=== PATIENT | female | born 1950 | race Caucasian/White ===

== ENCOUNTER 2016-11-11 11:00 | Outpatient (CLI) | payer MEDICARE | END 2016-11-11 11:01 | disposition home or self-care (01) | DX: E78.5 Hyperlipidemia, unspecified (principal); E03.9 Hypothyroidism, unspecified ==

== ENCOUNTER 2017-03-31 11:04 | Day surgery (SDC) | payer MEDICARE ==
[2017-03-31] MEDS ORDERED: LACTATED RINGERS 1,000 ML IV ONE (11:17)
[2017-03-31] MEDS ORDERED: fentaNYL 100 MCG/2 ML VIAL IVP ONE (11:57)
[2017-03-31] MEDS ORDERED: MIDAZOLAM 2 MG/2 ML VIAL IVP ONE (11:57)
[2017-03-31 13:08] VITALS: BP 100/56
== END 2017-03-31 11:05 | disposition home or self-care (01) ==
LOC: SDS 11:04
PROVIDERS: ATTEND Internal Medicine
PROC: 0DB68ZX Excision of Stomach, Via Natural or Artificial Opening Endoscopic, Diagnostic (ICD-10-PCS; 2017-03-31)
PROC: 0DB58ZX Excision of Esophagus, Via Natural or Artificial Opening Endoscopic, Diagnostic (ICD-10-PCS; principal; 2017-03-31 12:00)
DX: K31.89 Other diseases of stomach and duodenum (principal); K29.50 Unspecified chronic gastritis without bleeding; K31.7 Polyp of stomach and duodenum
CPT/HCPCS: 43239; J7120; 88305

== ENCOUNTER 2017-07-05 14:07 | Outpatient (CLI) | payer MEDICARE ==
[2017-07-05 18:56] LABS: BASOPHILS % (AUTO) 0.4 %; EOSINOPHILS # (AUTO) 0.1 10^3/uL (0.0-0.7); EOSINOPHILS % (AUTO) 0.7 %; HCT - HEMATOCRIT 44.1 % (37.0-47.0); HGB - HEMOGLOBIN 14.9 g/dL (12.0-16.0); LYMPHOCYTES # (AUTO) 1.9 10^3/uL (1.5-3.5); LYMPHOCYTES % (AUTO) 22.1 %; MEAN CORPUSCULAR HEMOGLOBIN 29.9 pg (27.0-31.0); MEAN CORPUSCULAR HGB CONC 33.7 g/dL (32.0-36.0); MEAN CORPUSCULAR VOLUME 88.8 fL (81.0-99.0); MEAN PLATELET VOLUME 8.4 fL (7.9-10.8); MONOCYTES # (AUTO) 0.7 10^3/uL (0.0-1.0); MONOCYTES % (AUTO) 7.7 %; NEUTROPHILS % (AUTO) 69.1 %; RED BLOOD COUNT 4.97 10^6/uL (4.20-5.40); RED CELL DISTRIBUTION WIDTH 13.1 % (12.0-15.0); UNCORRECTED WHITE BLOOD COUNT 8.6 x10^3/uL; WHITE BLOOD COUNT 8.6 x10^3/uL (4.8-10.8)
[2017-07-05 19:17] LABS: ALBUMIN/GLOBULIN RATIO 1.3 (1.0-2.2); BILIRUBIN,TOTAL 1.8 mg/dL (0.2-1.0); BUN - BLOOD UREA NITROGEN 16 mg/dL (6-20); CALCIUM 9.7 mg/dL (8.5-10.3); CARBON DIOXIDE - CO2 26 mmol/L (21-32); CHLORIDE 101 mmol/L (101-111); CHOL/HDL RATIO 4.4 (<4.4); CHOLESTEROL 256 mg/dL; CREATININE 0.9 mg/dL (0.4-1.0); GFR - MDRD 63 (>89); GLUCOSE 89 mg/dL (70-100); HDL CHOLESTEROL 58 mg/dL; IRON 102 ug/dL (28-170); SODIUM 136 mmol/L (135-145); TOTAL IRON BINDING CAPACITY 368 ug/dL (250-450); TOTAL PROTEIN 8.3 g/dL (6.7-8.2); TRANSFERRIN 263 mg/dL (192-382); TRIGLYCERIDES 113 mg/dL; VLDL CHOLESTEROL 23 mg/dL
[2017-07-05 19:22] LABS: THYROID STIMULATING HORMONE 3.68 uIU/mL (0.34-5.60)
[2017-07-05 19:26] LABS: FERRITIN 176.9 ng/mL (11.0-306.8)
== END 2017-07-05 14:08 | disposition home or self-care (01) ==
LOC: LAB.WCP 14:07
PROVIDERS: ATTEND Family Medicine
DX: R53.83 Other fatigue (principal); E03.9 Hypothyroidism, unspecified; E78.5 Hyperlipidemia, unspecified
CPT/HCPCS: 36415; 80053; 80061; 82728; 83540; 84443; 84466; 85025

== ENCOUNTER 2017-08-22 11:21 | Emergency (ER) | payer MEDICARE ==
[2017-08-22 12:17] LABS: BASOPHILS % (AUTO) 0.3 %; EOSINOPHILS % (AUTO) 0.1 %; HCT - HEMATOCRIT 40.3 % (37.0-47.0); HGB - HEMOGLOBIN 13.7 g/dL (12.0-16.0); LYMPHOCYTES # (AUTO) 1.1 10^3/uL (1.5-3.5); LYMPHOCYTES % (AUTO) 9.2 %; MEAN CORPUSCULAR HEMOGLOBIN 29.5 pg (27.0-31.0); MEAN CORPUSCULAR HGB CONC 33.9 g/dL (32.0-36.0); MEAN CORPUSCULAR VOLUME 87.1 fL (81.0-99.0); MEAN PLATELET VOLUME 7.6 fL (7.9-10.8); MONOCYTES # (AUTO) 0.6 10^3/uL (0.0-1.0); NEUTROPHILS % (AUTO) 85.4 %; RED BLOOD COUNT 4.62 10^6/uL (4.20-5.40); RED CELL DISTRIBUTION WIDTH 12.9 % (12.0-15.0); UNCORRECTED WHITE BLOOD COUNT 11.8 x10^3/uL; WHITE BLOOD COUNT 11.8 x10^3/uL (4.8-10.8)
[2017-08-22] MEDS ORDERED: SODIUM CHLORIDE 0.9% 1,000 ML IV ONE (12:24)
[2017-08-22 12:32] LABS: ALBUMIN/GLOBULIN RATIO 1.2 (1.0-2.2); BILIRUBIN,TOTAL 1.3 mg/dL (0.2-1.0); CALCIUM 9.3 mg/dL (8.5-10.3); CREATININE 0.8 mg/dL (0.4-1.0); TOTAL PROTEIN 7.9 g/dL (6.7-8.2)
[2017-08-22 13:01] LABS: BILIRUBIN,URINE NEGATIVE (NEGATIVE)
[2017-08-22 13:04] LABS: UA w/ MICROSCOPIC CHARGE YES
[2017-08-22 13:13] LABS: UR CULTURE IF IND INDICATED
[2017-08-22] MEDS ORDERED: IOPAMIDOL-300 100 ML VIAL ONE (13:58)
[2017-08-22] MEDS ORDERED: MORPHINE 10 MG/ML VIAL IVP STA (13:59)
[2017-08-22] MEDS ORDERED: ONDANSETRON 4 MG/2 ML VIAL IVP STA (14:00)
[2017-08-22] MEDS ORDERED: ONDANSETRON 4 MG/2 ML VIAL ONE (14:16)
[2017-08-22] MEDS ORDERED: MORPHINE 2 MG/ML SYRINGE ONE (14:16)
[2017-08-22] MEDS ORDERED: IOPAMIDOL-300 100 ML VIAL IVP ONE (14:54)
--- NOTE | 2017-08-22 15:27 | CT Preliminary Report ---
Exam: CT ABDOMEN/PELVIS W/ IMPRESSION: 1. Probable diffuse wall thickening of the colon, extending from the sigmoid to the rectum. This may reflect an inflammatory or infectious colitis. 2. Although lack of distention and oral contrast limits its evaluation, there is suggestion of focal thickening of the wall of the gastric antrum. 3. Cholelithiasis. [facility] SITE ID: [id number]
--- NOTE | 2017-08-22 15:30 | CT Report ---
EXAM: CT ABDOMEN AND PELVIS EXAM DATE: 08/22/2017 02:55 PM. CLINICAL HISTORY: ABD pain and rectal bleeding. COMPARISONS: None. TECHNIQUE: Routine helical CT imaging was performed through the abdomen and pelvis. IV contrast: 100M L OF ISOVUE 300. Enteric contrast: No. Reconstructions: Coronal and sagittal. In accordance with CT protocol optimization, one or more of the following dose reduction techniques w ere utilized for this exam: automated exposure control, adjustment of mA and/or KV based on patient s ize, or use of iterative reconstructive technique. FINDINGS: Lung Bases: Unremarkable. Liver: Normal. No masses. Gallbladder/Bile Ducts: Cholelithiasis Spleen: Normal. Pancreas: Normal. Adrenal Glands: Normal. Kidneys: Normal. No masses or hydronephrosis. Peritoneal Cavity/Bowel: Although lack of distention and oral contrast limits its evaluation, there i s suggestion of thickening of the wall of the gastric antrum (series 4, images 36-39). This is nonspe cific in appearance. The colon is collapsed from the splenic flexure to the rectum. While lack of dis tention and oral contrast limits its evaluation, there is suggestion of diffuse wall thickening exten ding from the sigmoid colon to the rectum (series 6, image 35). This may reflect an inflammatory or i nfectious colitis. No free fluid, free air or adenopathy. The appendix is well visualized and normal. Pelvic Organs: The urinary bladder is unremarkable. Postsurgical changes from hysterectomy. Vasculature: No aneurysms or other significant abnormality. Bones: Mild degenerative changes in the spine. Other: None. IMPRESSION: 1. Probable diffuse wall thickening of the colon, extending from the sigmoid to the rectum. This may reflect an inflammatory or infectious colitis. 2. Although lack of distention and oral contrast limits its evaluation, there is suggestion of focal thickening of the wall of the gastric antrum. 3. Cholelithiasis. [facility] Referring Provider Line: [phone] SITE ID: [id number]
--- NOTE | 2017-08-22 16:03 | ED Physician Documentation ---
History of Present Illness - Stated complaint Stated Complaint: DIARRHEA/CRAMPS - Chief complaint Chief Complaint: Abd Pain - History obtained from History obtained from: Patient (pt is here for evaluation of abdominal pain, nausea, and bloody stool. Pt states no fevers, no travel, no sick contcts, no camping, no urinary sx, no pain with BM's,) Review of Systems Constitutional: denies: Fever, Chills Throat: denies: Sore throat Cardiac: denies: Chest pain / pressure, Palpitations, Pedal edema, Calf pain Respiratory: denies: Dyspnea, Cough GI: reports: Abdominal Pain, Nausea, Diarrhea, Bloody / black stool. denies: Abdominal Swelling, Vomiting, Constipation : reports: Hematuria. denies: Dysuria, Frequency, Vaginal bleeding Skin: denies: Rash, Lesions Musculoskeletal: denies: Extremity pain Neurologic: reports: Generalized weakness. 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 : None HEENT: Glaucoma Psych: Depression Musculoskeletal: Osteoarthritis Derm: None - Past Surgical History Past Surgical History: Yes General: Colonoscopy, EGD Ortho: Other /DUPLIGRAPH OPERATOR: section, 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 - Present Medications Home Medications: Ambulatory Orders Medication Instructions Recorded Confirmed Citalopram [CeleXA] 40 mg PO DAILY 03/19/13 08/22/17 LORazepam [Ativan] 1 mg PO DAILY 03/19/13 08/22/17 Levothyroxine Sodium [Levothroid] 25 mcg PO DAILY 03/19/13 08/22/17 Omeprazole 20 mg PO DAILY 03/19/13 08/22/17 Zolpidem [Ambien] 5 mg PO HS 03/29/17 08/22/17 Cholecalciferol (Vitamin D3) 2,000 unit PO DAILY 03/31/17 08/22/17 [Vitamin D] Ciprofloxacin HCl [Cipro] 500 mg PO BID #14 tablet 08/22/17 HYDROcod/ACETAM 5/325 [[place] 5/325] 1 each PO Q6H #7 tablet 08/22/17 Metronidazole [Flagyl] 500 mg PO TID #21 tablet 08/22/17 Ondansetron Odt [Zofran] 4 mg TL Q6H PRN #10 tablet 08/22/17 - Allergies Allergies/Adverse Reactions: Allergies Allergy/AdvReac Type Severity Reaction Status Date / Time Sulfa (Sulfonamide Allergy Severe Respiratory Verified 08/22/17 11:45 Antibiotics) amoxicillin AdvReac Unknown Verified 08/22/17 11:45 - Social History Does the pt smoke?: No Smoking Status: Never smoker Does the pt drink ETOH?: No Does the pt have substance abuse?: No - Immunizations Immunizations are current?: Yes - POLST Patient has POLST: Yes POLST Status: Full Code PD ED PE NORMAL - Vitals Vital signs reviewed: Yes - General General: Alert and oriented X 3, No acute distress, Well developed/nourished - HEENT HEENT: Atraumatic, Moist mucous membranes - Cardiac Cardiac: RRR (bradycardic but regular), No murmur - Respiratory Respiratory: No respiratory distress, Clear bilaterally - Abdomen Abdomen: Normal bowel sounds - Rectal Rectal: Other (gross blood ) - Derm Derm: Normal color, No rash - Extremities Extremities: No edema - Neuro Neuro: Alert and oriented X 3 Eye Opening: Spontaneous Motor: Obeys Commands Verbal: Oriented GCS Score: 15 - Psych Psych: Normal mood, Normal affect Results - Vitals Vitals: Vital Signs - 24 hr 08/22/17 08/22/17 08/22/17 11:38 12:14 14:24 Temperature 35.9 C L 37.1 C Heart Rate 57 L 102 H 53 L Respiratory 16 18 14 Rate Blood Pressure 119/75 130/46 L 125/67 O2 Saturation 96 98 98 Oxygen O2 Source Room air - Labs Labs: Laboratory Tests 08/22/17 08/22/17 08/22/17 12:09 12:09 12:55 WBC 11.8 H RBC 4.62 Hgb 13.7 Hct 40.3 MCV 87.1 MCH 29.5 MCHC 33.9 RDW 12.9 Plt Count 295 MPV 7.6 L Neut # 10.0 H Lymph # 1.1 L [place] # 0.6 Eos # 0.0 Baso # 0.0 Absolute Nucleated RBC 0.00 Nucleated RBC % 0.0 Sodium 137 Potassium 4.0 Chloride 104 Carbon Dioxide 22 Anion Gap 11.0 BUN 17 Creatinine 0.8 Estimated GFR (MDRD) 72 L Glucose 137 H Calcium 9.3 Total Bilirubin 1.3 H AST 24 ALT 14 Alkaline Phosphatase 67 Total Protein 7.9 Albumin 4.3 Globulin 3.6 Albumin/Globulin Ratio 1.2 Lipase 25 Urine Color YELLOW Urine Clarity BLOODY Urine pH 8.0 H Ur Specific [place] 1.020 Urine Protein 100 H Urine Glucose (UA) NEGATIVE Urine Ketones NEGATIVE Urine Occult Blood LARGE H Urine Nitrite NEGATIVE Urine Bilirubin NEGATIVE Urine Urobilinogen 0.2 (NORMAL) Ur Leukocyte Esterase MODERATE H Urine RBC TNTC H Urine WBC 11-25 H Ur Squamous Epith Cells FEW Squamous Urine Bacteria None Seen Ur Microscopic Review INDICATED Urine Culture Comments INDICATED - Rads (name of study) CT abd/pelvis Radiology: Final report received PD MEDICAL DECISION MAKING - ED course Complexity details: d/w patient ED course: pt with a benign ABD exam in the ER however does have gross blood from the rectum and elevated WBC count. CT concerning for colitis. Pt tolerating PO intake. Will start ABX and nausea meds and pain medications. Pt given return precautions. She and her expressed understanding. Departure - Departure Disposition: 01 Home, Self Care Clinical Impression: Colitis, Cholelithiasis Condition: Good Instructions: ED Gastroenteritis Bacterial Follow-Up: Leanne Flores DO [Primary Care Provider] - Prescriptions: Ciprofloxacin HCl [Cipro] 500 mg PO BID #14 tablet HYDROcod/ACETAM 5/325 [[place] 5/325] 1 each PO Q6H #7 tablet Metronidazole [Flagyl] 500 mg PO TID #21 tablet Ondansetron Odt [Zofran] 4 mg TL Q6H PRN #10 tablet PRN Reason: Nausea / Vomiting Comments: Take all of your medications as instructed. Return to the ER for any new symptoms, fevers, worsening pain, or any other new or worsening symptoms. Call your GI provider for a follow up.
[2017-08-22 16:19] VITALS: BP 105/62
== END 2017-08-22 16:33 | disposition home or self-care (01) ==
LOC: ED 11:21
DX: K52.9 Noninfective gastroenteritis and colitis, unspecified (principal); K80.20 Calculus of gallbladder without cholecystitis without obstruction; K62.5 Hemorrhage of anus and rectum; E03.9 Hypothyroidism, unspecified
CPT/HCPCS: 36415; 74177; 80053; 81001; 83690; 85025; 87086; 96361; 96374; 96375; 99284; J2270; Q9967; 81003

== ENCOUNTER 2017-08-30 08:00 | Outpatient (CLI) | payer MEDICARE | END 2017-08-30 23:59 | disposition home or self-care (01) | LOC: LAB.R 08:00 | PROVIDERS: ATTEND Family Medicine | DX: K52.9 Noninfective gastroenteritis and colitis, unspecified (principal) | CPT/HCPCS: 81599; 83630; 87045; 87046; 87177; 87209; 87329; 87493 ==

== ENCOUNTER 2018-02-05 06:04 | Inpatient (IN) | payer MEDICARE ==
[2018-02-05] MEDS ORDERED: SODIUM CHLORIDE 0.9% 1,000 ML IV ONE (06:19)
[2018-02-05] MEDS ORDERED: MORPHINE 10 MG/ML VIAL IVP STA (06:19)
[2018-02-05] MEDS ORDERED: ONDANSETRON 4 MG/2 ML VIAL IVP STA (06:19)
[2018-02-05 06:50] LABS: BASOPHILS % (AUTO) 0.1 %; EOSINOPHILS % (AUTO) 0.1 %; LYMPHOCYTES # (AUTO) 1.1 10^3/uL (1.5-3.5); LYMPHOCYTES % (AUTO) 6.2 %; MEAN CORPUSCULAR HGB CONC 32.8 g/dL (32.0-36.0); MEAN CORPUSCULAR VOLUME 88.4 fL (81.0-99.0); MEAN PLATELET VOLUME 7.7 fL (7.9-10.8); MONOCYTES # (AUTO) 0.9 10^3/uL (0.0-1.0); MONOCYTES % (AUTO) 5.1 %; NEUTROPHILS % (AUTO) 88.5 %; PLT - PLATELET COUNT 317 10^3/uL (130-450); RED BLOOD COUNT 4.84 10^6/uL (4.20-5.40); WHITE BLOOD COUNT 16.9 x10^3/uL (4.8-10.8)
[2018-02-05 06:59] LABS: PT - PROTHROMBIN TIME 11.4 secs (9.9-12.6)
[2018-02-05 07:02] LABS: ALBUMIN 4.4 g/dL (3.2-5.5); ALBUMIN/GLOBULIN RATIO 1.3 (1.0-2.2); BILIRUBIN,TOTAL 1.6 mg/dL (0.2-1.0); CALCIUM 9.4 mg/dL (8.5-10.3); TOTAL PROTEIN 7.8 g/dL (6.7-8.2)
[2018-02-05 07:10] LABS: KETONES,URINE (UA) NEGATIVE (NEGATIVE); LEUKOCYTE ESTERASE, URINE NEGATIVE (NEGATIVE); NITRITE,URINE NEGATIVE (NEGATIVE); OCCULT BLOOD,URINE MODERATE (NEGATIVE); PH,URINE 5.5 PH (5.0-7.5); PROTEIN,URINE NEGATIVE (NEGATIVE); UROBILINOGEN,URINE 0.2 (NORMAL) E.U./dL (NORMAL)
[2018-02-05 07:11] LABS: GLUCOSE, URINE (UA) NEGATIVE (NEGATIVE)
[2018-02-05 07:12] LABS: CLARITY,URINE CLEAR (CLEAR)
[2018-02-05 07:15] LABS: BILIRUBIN,URINE NEGATIVE (NEGATIVE); ICTOTEST,URINE NEGATIVE
[2018-02-05 07:32] LABS: BACTERIA,URINE Few /HPF (None Seen); MUCUS,URINE Few Strands; SQUAMOUS EPITHELIAL CELL,UR MOD Squamous (<= Few)
[2018-02-05 07:33] LABS: CASTS, URINE 3-5 Hyaline Casts /LPF
--- NOTE | 2018-02-05 07:37 | ED Physician Documentation ---
PD HPI NVD - Stated complaint Stated Complaint: RECTAL BLEED - Chief complaint Chief Complaint: Abd Pain - History obtained from History obtained from: Patient, Family - History of Present Illness Timing - onset: Enter time (0200), Today Timing - duration: Hours Timing - details: Abrupt onset, Still present Associated symptoms: Abdominal pain, Loss of appetite, Other (chills and diarrhea with vomiting) Improved by: Laying still Worsened by: Moving, Position, Palpation Similar symptoms before: Diagnosis (colitis) Recently seen: Not recently seen - Additonal information Additional information: 67-year-old female with a recent history of colitis has developed acute abdominal pain diarrhea and vomiting at about 2:00 in the morning. She had pain bad enough to double her over at the side of the bed. She is come to the emergency department this morning for evaluation and treatment. She has had a similar episode of this back in July of last year at which time she was treated with Cipro and Flagyl after CT scanning show what appeared to be colitis in the left colon. She states that she improved with a 10 day course of antibiotic. She did not have follow-up endoscopy. Review of Systems Constitutional: reports: Chills, Fatigue, Sweats. denies: Fever Eyes: denies: Decreased vision Ears: reports: Loss of hearing. 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 : None HEENT: Glaucoma Psych: Depression Musculoskeletal: Osteoarthritis Derm: None - Past Surgical History Past Surgical History: Yes General: Colonoscopy, EGD Ortho: Other /COAT AGENT: section, 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 - Present Medications Home Medications: Ambulatory Orders Medication Instructions Recorded Confirmed Citalopram [CeleXA] 40 mg PO DAILY 03/19/13 08/22/17 LORazepam [Ativan] 1 mg PO DAILY 03/19/13 08/22/17 Levothyroxine Sodium [Levothroid] 25 mcg PO DAILY 03/19/13 08/22/17 Omeprazole 20 mg PO DAILY 03/19/13 08/22/17 Zolpidem [Ambien] 5 mg PO HS 03/29/17 08/22/17 Cholecalciferol (Vitamin D3) 2,000 unit PO DAILY 03/31/17 08/22/17 [Vitamin D] Ciprofloxacin HCl [Cipro] 500 mg PO BID #14 tablet 08/22/17 HYDROcod/ACETAM 5/325 [[place] 5/325] 1 each PO Q6H #7 tablet 08/22/17 Metronidazole [Flagyl] 500 mg PO TID #21 tablet 08/22/17 Ondansetron Odt [Zofran] 4 mg TL Q6H PRN #10 tablet 08/22/17 - Allergies Allergies/Adverse Reactions: Allergies Allergy/AdvReac Type Severity Reaction Status Date / Time Sulfa (Sulfonamide Allergy Severe Respiratory Verified 02/05/18 06:15 Antibiotics) amoxicillin AdvReac Unknown Verified 02/05/18 06:15 - Social History Does the pt smoke?: No Smoking Status: Never smoker Does the pt drink ETOH?: No Does the pt have substance abuse?: No - Immunizations Immunizations are current?: Yes - POLST Patient has POLST: Yes POLST Status: Full Code PD ED PE NORMAL - Vitals Vital signs reviewed: Yes (bradycardia) - General General: Alert and oriented X 3, Well developed/nourished, Other (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 No guarding ) - Back Back: No CVA TTP, No spinal TTP - Derm Derm: Normal color, Warm and dry, No rash - Extremities Extremities: No deformity, No edema - Neuro Neuro: No motor deficit, No sensory deficit Eye Opening: Spontaneous Motor: Obeys Commands Verbal: Oriented GCS Score: 15 - Psych Psych: Normal mood, Normal affect Results - Vitals Vitals: Vital Signs - 24 hr 02/05/18 02/05/1818 06:12 06:50 07:30 Temperature 36.5 C Heart Rate 47 L 42 L 44 L Respiratory 17 12 16 Rate Blood Pressure 122/74 113/61 96/58 L O2 Saturation 97 97 02/05/18 02/05/18 02/05/18 08:00 09:04 09:15 Temperature Heart Rate 39 L 51 L 51 L Respiratory 16 16 16 Rate Blood Pressure 93/52 L 104/62 102/67 O2 Saturation 97 95 95 02/05/18 02/05/18 09:30 09:45 Temperature Heart Rate 52 L 50 L Respiratory 16 16 Rate Blood Pressure 101/62 99/62 O2 Saturation 95 96 Oxygen O2 Source Room air - Labs Labs: Laboratory Tests 02/05/18 02/05/18 02/05/18 06:28 06:28 06:28 WBC 16.9 H RBC 4.84 Hgb 14.0 Hct 42.8 MCV 88.4 MCH 29.0 MCHC 32.8 RDW 13.0 Plt Count 317 MPV 7.7 L Neut # 15.0 H Lymph # 1.1 L [place] # 0.9 Eos # 0.0 Baso # 0.0 Absolute Nucleated RBC 0.01 Nucleated RBC % 0.0 PT 11.4 INR 1.0 APTT 26.8 Sodium 136 Potassium 4.2 Chloride 103 Carbon Dioxide 23 Anion Gap 10.0 BUN 19 Creatinine 1.0 Estimated GFR (MDRD) 55 L Glucose 187 H Lactic Acid Calcium 9.4 Total Bilirubin 1.6 H AST 24 ALT 13 Alkaline Phosphatase 75 Total Protein 7.8 Albumin 4.4 Globulin 3.4 Albumin/Globulin Ratio 1.3 Lipase 33 Urine Color Urine Clarity Urine pH Ur Specific [place] Urine Protein Urine Glucose (UA) Urine Ketones Urine Occult Blood Urine Nitrite Urine Bilirubin Urine Urobilinogen Ur Leukocyte Esterase Urine RBC Urine WBC Ur Squamous Epith Cells Urine Bacteria Urine Casts Urine Mucus Ur Microscopic Review Urine Culture Comments 02/05/18 02/05/18 06:51 06:51 WBC RBC Hgb Hct MCV MCH MCHC RDW Plt Count MPV Neut # Lymph # [place] # Eos # Baso # Absolute Nucleated RBC Nucleated RBC % PT INR APTT Sodium Potassium Chloride Carbon Dioxide Anion Gap BUN Creatinine Estimated GFR (MDRD) Glucose Lactic Acid 1.6 Calcium Total Bilirubin AST ALT Alkaline Phosphatase Total Protein Albumin Globulin Albumin/Globulin Ratio Lipase Urine Color YELLOW Urine Clarity CLEAR Urine pH 5.5 Ur Specific [place] >=1.030 H Urine Protein NEGATIVE Urine Glucose (UA) NEGATIVE Urine Ketones NEGATIVE Urine Occult Blood MODERATE H Urine Nitrite NEGATIVE Urine Bilirubin NEGATIVE Urine Urobilinogen 0.2 (NORMAL) Ur Leukocyte Esterase NEGATIVE Urine RBC 6-10 H Urine WBC 4-5 Ur Squamous Epith Cells MOD Squamous H Urine Bacteria Few Urine Casts 3-5 Hyaline Casts Urine Mucus Few Strands Ur Microscopic Review INDICATED Urine Culture Comments NOT INDICATED - Rads (name of study) CT abdomen and pelvis with Radiology: Prelim report reviewed (Impression: Apparent circumferential bowel wall thickening in the descending colon may be due to under distention. However , infectious or inflammatory colitis such as ulcerative colitis can have this appearance. This is new since the prior examination. Correlate clinically.), EMP read indepedently, See rad report Procedures - IVC sono (time) 2207 Bedside IVC sono: IVC measures (cm) (1.42), Dehydration (minimal) PD MEDICAL DECISION MAKING - ED course Complexity details: reviewed old records, reviewed results, re-evaluated patient , considered differential, d/w patient, d/w family ED course: 67 y/o female with acute diarrheal illness with pain and vomiting is not significantly dehydrated on interrogation of the IVC after one liter fluid given. She is hypotensive after one liter saline in. Initially I considered treating the patient empirically as prior but with the hypotension, elevated WBC and pain worse than prior episode I elected to scan again. This demonstrated a general swelling of the colon on the left and is consistent with ulcerative colitis. She is hypotensive and bradycardic and hospitalization is indicated. Departure - Departure Disposition: ED Place in Observation Clinical Impression: Colitis
[2018-02-05] MEDS ORDERED: MORPHINE 2 MG/ML SYRINGE IVP STA (07:42)
[2018-02-05] MEDS ORDERED: metroNIDAZOLE 500 MG/100 ML 500 MG/100 ML BAG IV ONE (07:42)
[2018-02-05] MEDS ORDERED: IOPAMIDOL-300 100 ML VIAL ONE (08:35)
[2018-02-05] MEDS ORDERED: IOPAMIDOL-300 100 ML VIAL IVP ONE (09:03)
--- NOTE | 2018-02-05 09:23 | CT Preliminary Report ---
Exam: CT ABDOMEN/PELVIS W/ IMPRESSION: Apparent circumferential bowel wall thickening in the descending colon may be due to underdistention. However, infectious or inflammatory colitis such as ulcerative colitis can have this appearance. Thi s is new since the prior examination. Correlate clinically. [facility] SITE ID: [id number]
--- NOTE | 2018-02-05 09:24 | CT Report ---
EXAM: CT ABDOMEN AND PELVIS EXAM DATE: 02/05/2018 09:03 AM. CLINICAL HISTORY: L sided abdominal pain/diarrhea. COMPARISONS: Abdominal CT dated 08/22/2017. TECHNIQUE: Routine helical CT imaging was performed through the abdomen and pelvis. IV contrast: 100 mL Isovue 300. Enteric contrast: No. Reconstructions: Coronal and sagittal. In accordance with CT protocol optimization, one or more of the following dose reduction techniques w ere utilized for this exam: automated exposure control, adjustment of mA and/or KV based on patient s ize, or use of iterative reconstructive technique. FINDINGS: Lung Bases: Unremarkable. Liver: Normal. No masses. Gallbladder/Bile Ducts: Tiny stones versus sludge in the dependent portion of the gallbladder with no gallbladder wall thickening or pericholecystic fluid. Spleen: Normal. Pancreas: Normal. Adrenal Glands: Normal. Kidneys: Normal. No masses or hydronephrosis. Peritoneal Cavity/Bowel: No bowel obstruction or inflammatory process associated with the bowel. The cecum is located in the left side of the abdomen. No lymphadenopathy. No free air or fluid in the abd omen or pelvis. Apparent circumferential bowel wall thickening in the descending colon. The appendix is well visualized and normal. Pelvic Organs: Normal. The bladder and visualized pelvic organs are within normal limits. Vasculature: No aneurysms or other significant abnormality. Bones: No significant abnormality. Other: None. IMPRESSION: Apparent circumferential bowel wall thickening in the descending colon may be due to underdistention. However, infectious or inflammatory colitis such as ulcerative colitis can have this appearance. Thi s is new since the prior examination. Correlate clinically. [facility] Referring Provider Line: [phone] SITE ID: [id number]
[2018-02-05] MEDS ORDERED: TEMAZEPAM 15 MG CAPSULE PO PRN (11:22)
[2018-02-05] MEDS ORDERED: HYDROmorphone 0.5 MG/0.5 ML SYRINGE IVP PRN (11:22)
[2018-02-05] MEDS ORDERED: PROCHLORPERAZINE 10 MG/2 ML VIAL IVP PRN (11:22)
[2018-02-05] MEDS ORDERED: LACTATED RINGERS 1,000 ML IV SCH (12:00)
[2018-02-05] MEDS: SODIUM CHLORIDE FLUSH 0.9% 10 ML SYRINGE IVP PRN (12:50)
[2018-02-05] MEDS: metroNIDAZOLE 500 MG/100 ML 500 MG/100 ML BAG IV SCH ×2 (15:20→22:00)
[2018-02-05] MEDS: PANTOPRAZOLE 40 MG VIAL IVP SCH (16:06)
[2018-02-05] MEDS: SODIUM CHLORIDE FLUSH 0.9% 10 ML SYRINGE IVP SCH (16:08)
[2018-02-05] MEDS ORDERED: SODIUM CHLORIDE 0.9% 500 ML IV ONE ×2 (17:11→18:00)
[2018-02-05] MEDS: CIPROFLOXACIN 400 MG/200 ML 200 ML IV SCH (17:26)
[2018-02-05] MEDS: LACTATED RINGERS 1,000 ML IV SCH ×2 (18:36→22:40)
[2018-02-05] MEDS: ACETAMINOPHEN 1,000 MG/100 ML 100 ML IV PRN (20:20)
--- NOTE | 2018-02-05 21:17 | HISTORY & PHYSICAL EXAMINATION ---
DATE OF SERVICE: 02/05/2018 Physician: Joselin Becker MD HISTORY OF PRESENT ILLNESS: This is a 67-year-old white female with a history of hypothyroidism on levothyroxine, poor sleeping for which she needs to take Zolpidem, Celexa, as well as Ativan, and hyperlipidemia history on pravastatin. In July 2017, she came to the ER and was diagnosed with colitis, presumed ulcerative colitis. She has not yet seen a pier runner, there is a plan to have first office visit with gastroenterology plus a colonoscopy in one month. The patient presents with acute onset of abdominal pain at two in the morning leading to multiple episodes of diarrhea, some with gurwinder blood and some mixed with blood. With this she also had nausea and slight vomiting. She presents to the Emergency Room and was felt to be dehydrated because of low blood pressure and did have two more episodes of small diarrhea in the ER. She was treated with antiemetics. She had a CT scan of the abdomen and pelvis done in the Emergency Room that showed the distal colon had thickening and presumed ulcerative colitis. She is being admitted for management of ulcerative colitis. PAST MEDICAL HISTORY 1. Hypothyroidism. 2. Poor sleep requiring sedatives. 3. Hyperlipidemia on pravastatin. ALLERGIES 1. SULFA. 2. AMOXICILLIN. MEDICATIONS: Celexa, Ativan, Zolpidem, Pravastatin. REVIEW OF SYSTEMS: The patient had colitis in July 2017 and had a 10 day course of antibiotics, which she stated improved her status, she was not admitted at that time at all. With this current presentation, there has been no fever. She denies any pulmonary or cardiac symptoms and no other complaints. A comprehensive review of systems was performed and pertinent positives are stated. The rest are negative. FAMILY HISTORY: No inherited diseases. SOCIAL HISTORY: She is a nonsmoker, who never smoked, except tried it as a teenager, drinks no alcohol, uses no illicit drugs. 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 PHYSICAL EXAMINATION GENERAL: White female who appears younger than her age. She is in mild distress. VITAL SIGNS: Blood pressure 99/62, 91/45, pulse is in the 50s in sinus bradycardia. She is afebrile and room air saturation is 98%. HEENT: Reveals dry oral mucosa, otherwise unremarkable. NECK: No JVD or carotid bruits. CHEST: Clear. HEART: Sounds normal. ABDOMEN: Soft, decreased bowel sounds, nontender, no guarding. EXTREMITIES: Without clubbing, cyanosis or edema. NEUROLOGIC: Intact. LABS: Normal electrolytes. Normal BUN and creatinine. Normal lactic acid at 1.6. Normal magnesium at 2.2. Normal liver test. Normal lipase. White blood count 16.9, with a left shift. Platelet count normal at 317. INR normal at 1.0. Urinalysis had moderate squamous cells and moderate occult blood and specific gravity greater than 1.03 consistent with volume depletion. IMPRESSION/DIAGNOSES 1. Ulcerative colitis exacerbation with bloody diarrhea, abdominal pain, nausea and vomiting. 2. Hypotension. 3. Dehydration. 4. Bradycardia, which is especially inappropriately low for a hypotensive patient. This suggests intrinsic conduction system disease of the heart. She was bradycardiac at the last Emergency Room visit for colitis in July 2017 also. PLAN: 1. Admit the patient to telemetry. She is on no heart rate slowing medications; therefore, this bradycardia is not from medications. Check at TSH, to rule out hypothyroidism as the cause, and continue telemetry. She may also need an Echo evaluation for structural heart disease. 2. Start hydration with a saline bolus, then lactated ringers at 100 to 200 mL an hour. Monitor electrolytes, magnesium, BUN/creat. 3. After the saline bolus, continue with volume replacement, there does not appear to be cardiogenic shock, but await blood cultures as this could be septic shock. 4. Begin the patient on iv Flagyl and Cipro for treatment of the ulcerative colitis. Start bowel rest with n.p.o. status. Send stool for bacterial cultures and C diff. check. Slowly advance diet as tolerated. Plan to keep the appointment with gastroenterology and for colonoscopy after this course of treatment. DEEP VEIN THROMBOSIS PROPHYLAXIS: SCDs. CODE STATUS: FULL CODE. ATTESTATION: The patient is expected to be discharged or transferred to another facility within 96 hours: Yes. TD: 02/05/2018 21:16 [place]
[2018-02-05] MEDS: ZOLPIDEM 5 MG TABLET PO PRN (22:29)
[2018-02-06] MEDS: SODIUM CHLORIDE FLUSH 0.9% 10 ML SYRINGE IVP SCH ×3 (00:07→16:31)
[2018-02-06] MEDS: LACTATED RINGERS 1,000 ML IV SCH ×4 (03:34→21:25)
[2018-02-06] MEDS: CIPROFLOXACIN 400 MG/200 ML 200 ML IV SCH ×2 (04:55→16:31)
[2018-02-06 06:10] LABS: BASOPHILS % (AUTO) 0.2 %; EOSINOPHILS % (AUTO) 0.2 %; HGB - HEMOGLOBIN 11.4 g/dL (12.0-16.0); LYMPHOCYTES # (AUTO) 1.2 10^3/uL (1.5-3.5); LYMPHOCYTES % (AUTO) 13.5 %; MEAN CORPUSCULAR HEMOGLOBIN 29.8 pg (27.0-31.0); MEAN CORPUSCULAR HGB CONC 33.2 g/dL (32.0-36.0); MEAN CORPUSCULAR VOLUME 89.6 fL (81.0-99.0); MEAN PLATELET VOLUME 7.6 fL (7.9-10.8); MONOCYTES # (AUTO) 0.8 10^3/uL (0.0-1.0); MONOCYTES % (AUTO) 9.1 %; NEUTROPHILS # (AUTO) 6.8 10^3/uL (1.5-6.6); PLT - PLATELET COUNT 179 10^3/uL (130-450); RED BLOOD COUNT 3.82 10^6/uL (4.20-5.40); RED CELL DISTRIBUTION WIDTH 13.2 % (12.0-15.0); WHITE BLOOD COUNT 8.9 x10^3/uL (4.8-10.8)
[2018-02-06] MEDS: PANTOPRAZOLE 40 MG VIAL IVP SCH (06:15)
[2018-02-06] MEDS: metroNIDAZOLE 500 MG/100 ML 500 MG/100 ML BAG IV SCH ×3 (06:17→21:57)
[2018-02-06 06:20] LABS: ALBUMIN 3.2 g/dL (3.2-5.5); ALBUMIN/GLOBULIN RATIO 1.2 (1.0-2.2); BILIRUBIN,TOTAL 1.9 mg/dL (0.2-1.0); CALCIUM 8.3 mg/dL (8.5-10.3); CREATININE 0.8 mg/dL (0.4-1.0); MAGNESIUM 1.6 mg/dL (1.7-2.8); TOTAL PROTEIN 5.9 g/dL (6.7-8.2)
[2018-02-06] MEDS ORDERED: LEVOTHYROXINE 100 MCG VIAL IVP ONE (08:06)
[2018-02-06] MEDS ORDERED: LEVOTHYROXINE 100 MCG TABLET PO SCH (09:00)
[2018-02-06] MEDS ORDERED: LEVOTHYROXINE 100 MCG VIAL IVP SCH (09:00)
[2018-02-06] MEDS: CITALOPRAM 10 MG TABLET PO SCH (09:35)
[2018-02-06] MEDS: POLYETHYLENE GLYCOL 3350 17 GM PACKET PO SCH (09:36)
[2018-02-06] MEDS: SODIUM CHLORIDE 0.9% 1,000 ML IV SCH ×2 (10:11→23:54)
[2018-02-06] MEDS ORDERED: MESALAMINE 400 MG CAPSULE PO SCH (12:00)
--- NOTE | 2018-02-06 12:34 | PROVIDER PROGRESS NOTE ---
Assessment/Plan - Problem List (1) Colitis Assessment/Plan: Surgical consult requested and Dr Niharika Resendiz recommends treatment with iv antibiotics and Mesalamine, no antibiotc enemas since she cannot hold enemas, await bacterial cultures, no colonoscopy needed urgently since it would not roving changer plus her presentation is not typical for ischemic colitis. Will advance diet. Will monitor H/H q12h, for possible PRBC transfusion. (2) Hypotension Assessment/Plan: Pt still has borderline low BP. Will add NS iv fluids to LR iv fluids, decrease these when she is able to hydrate herself po in 1-2 days. Monitor BP. Echo also ordered to assess for structural heart disease. (3) Bradycardia Assessment/Plan: Echo ordered to assess for structural heart disease. 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 Will give iv Levothyroxine while she is npo, then resume po thyroid pills. (4) Hypothyroidism Assessment/Plan: Pt admitted to her RN that she was not taking her thyroid medication at all. I spoke to her about this and the reason is that sheforgets it 30 min before her breakfast and ends up not taking it. Restart thyroid replacement. (5) Non compliance with medical treatment Assessment/Plan: Pt admitted to her RN that she was not taking her thyroid medication at all. - Current Meds Current Meds: Current Medications Generic Name Dose Route Start Last Admin Trade Name Freq PRN Reason Stop Dose Admin Citalopram Hydrobromide 40 mg 02/06/18 09:00 02/06/18 09:35 Celexa PO 40 mg DAILY MELVINA Administration Metronidazole 500 mg in 100 mls @ 100 mls/hr 02/05/18 14:00 02/06/18 07:22 Flagyl 500 Mg/100 Ml IV Infused Q8H MELVINA Infusion Ciprofloxacin 200 mls @ 200 mls/hr 02/05/18 17:00 02/06/18 05:55 Cipro 400 Mg/200 Ml IV Infused Q12H MELVINA Infusion Acetaminophen 100 mls @ 400 mls/hr 02/05/18 16:01 02/05/18 20:47 Ofirmev IV Infused Q6HR PRN Infusion PAIN Lactated Ringer's 1,000 mls @ 200 mls/hr 02/05/18 18:00 02/06/18 10:11 Lr IV 200 mls/hr .Q5H MELVINA Administration Sodium Chloride 1,000 mls @ 83.333 mls/hr 02/06/18 09:00 02/06/18 10:11 Normal Saline 0.9% IV 83.333 mls/hr .Q12H MELVINA Administration Polyethylene Glycol 17 gm 02/06/18 09:00 02/06/18 09:36 Miralax PO Not Given DAILY MELVINA Prochlorperazine Edisylate 10 mg 02/05/18 11:22 02/05/18 12:50 Compazine Inj IVP 10 mg Q6HR PRN Administration Nausea / Vomiting Sodium Chloride 10 ml 02/05/18 11:22 02/05/18 12:50 Normal Saline Flush 0.9% IVP 10 ml PRN PRN Administration NEEDED PER PROVIDER ORDERS Sodium Chloride 10 ml 02/05/18 17:00 02/06/18 09:37 Normal Saline Flush 0.9% IVP 10 ml 0100,[id number],1700 MELVINA Administration Zolpidem Tartrate 10 mg 02/05/18 20:36 02/05/18 22:29 Ambien PO 10 mg QPM PRN Administration Insomnia - Lab Result [place] Diagrams: 02/06/18 13:05 02/06/18 05:51 - Additional Planning My Orders: My Active Orders 02/05/18 14:00 metroNIDAZOLE 500 MG/100 ML [Flagyl 500 mg/100 ml] 500 mg in 100 ml IV Q8H 02/05/18 16:01 Acetaminophen 1,000 mg/100 ml [Ofirmev] 100 ml IV Q6HR 02/05/18 17:00 Ciprofloxacin 400 mg/200 ml [Cipro 400 mg/200 ml] 200 ml IV Q12H 02/05/18 18:00 Lactated Ringers [Lr] 1,000 ml IV 200 mls/hr 02/05/18 20:05 CUL, STOOL [CULTURE, STOOL] [RM] Routine 02/06/18 General Surgery Consult [CONS] Routine 02/06/18 07:00 Echo Transthoracic Complete [ECHO] Routine 02/06/18 09:00 Citalopram [CeleXA] 40 mg PO DAILY Sodium Chloride 0.9% [Normal Saline 0.9%] 1,000 ml IV 83.333 mls/hr 02/06/18 13:00 CBC - COMP BLD CT W/AUTO DIFF [HEME] Timed 02/06/18 20:00 HCT - HEMATOCRIT [HEME] Timed HGB - HEMOGLOBIN [HEME] Timed 02/07/18 05:00 CMP [COMPREHENSIVE METABOLIC PANEL] [CHEM] DAILYLAB ESR- ERYTHROCYTE SEDIMENT RATE [HEME] DAILYLAB 02/07/18 07:00 Levothyroxine [Synthroid] 100 mcg PO QDAC 02/07/18 09:00 Pantoprazole [Protonix] 40 mg IVP DAILY 02/08/18 05:00 CMP [COMPREHENSIVE METABOLIC PANEL] [CHEM] DAILYLAB Subjective - Subjective Patient Reports: Feeling Better Nursing Reports: Other (Pt had 3 all-blood BMs overnight.) Objective Vital Signs: Vital Signs - 24 hr 02/05/18 02/05/18 02/05/18 16:00 18:12 18:17 Temperature 36.2 C L Heart Rate [ 50 L 51 L Brachial] Respiratory 16 Rate Blood Pressure 91/45 L 87/47 L 100/58 L [Left Brachial artery] O2 Saturation 95 02/05/18 02/06/18 02/06/18 20:21 00:33 03:40 Temperature 36.6 C 36.9 C Heart Rate [ 63 55 L 48 L Brachial] Respiratory 17 16 18 Rate Blood Pressure 107/53 L 91/40 L 96/45 L [Left Brachial artery] O2 Saturation 95 96 93 02/06/18 02/06/18 02/06/18 05:00 07:36 12:26 Temperature 37.0 C 37.1 C 36.4 C L Heart Rate [ 55 L 58 L 56 L Brachial] Respiratory 18 16 16 Rate Blood Pressure 96/51 L 90/40 L 99/57 L [Left Brachial artery] O2 Saturation 94 95 94 Oxygen O2 Source Room air I&O (Last 24 Hrs): Intake and Output Totals x24h 02/04/18 02/05/18 02/06/18 23:59 23:59 23:59 Intake Total 2813.333 2266.666 Balance 2813.333 2266.666 General: Alert, Oriented x3 HEENT: Mucous membr. moist/pink Neck: Supple, No JVD Neuro: Non Focal Cardiovascular: No murmurs, Other (Bradycardic) Respiratory: No respiratory distress, Breath sounds nml Abdomen: Soft, Other (Mild tenderness in RUQ, no guarding or rebound, normal bowel sounds.) Extremities: No edema - Results Results: Laboratory Results WBC 8.9 x10^3/uL (4.8-10.8) 02/06/18 05:51 RBC 3.82 10^6/uL (4.20-5.40) L 02/06/18 05:51 Hgb 11.4 g/dL (12.0-16.0) L 02/06/18 05:51 Hct 34.2 % (37.0-47.0) L 02/06/18 05:51 MCV 89.6 fL (81.0-99.0) 02/06/18 05:51 MCH 29.8 pg (27.0-31.0) 02/06/18 05:51 MCHC 33.2 g/dL (32.0-36.0) 02/06/18 05:51 RDW 13.2 % (12.0-15.0) 02/06/18 05:51 Plt Count 179 10^3/uL (130-450) 02/06/18 05:51 MPV 7.6 fL (7.9-10.8) L 02/06/18 05:51 Neut # 6.8 10^3/uL (1.5-6.6) H 02/06/18 05:51 Lymph # 1.2 10^3/uL (1.5-3.5) L 02/06/18 05:51 [place] # 0.8 10^3/uL (0.0-1.0) 02/06/18 05:51 Eos # 0.0 10^3/uL (0.0-0.7) 02/06/18 05:51 Baso # 0.0 10^3/uL (0.0-0.1) 02/06/18 05:51 Absolute Nucleated RBC 0.00 x10^3/uL 02/06/18 05:51 Nucleated RBC % 0.0 /100WBC 02/06/18 05:51 ESR 16 mm/Hr (0-30) 02/06/18 05:51 PT 11.4 secs (9.9-12.6) 02/05/18 06:28 INR 1.0 (0.8-1.2) 02/05/18 06:28 APTT 26.8 secs (24.9-33.3) 02/05/18 06:28 Sodium 137 mmol/L (135-145) 02/06/18 05:51 Potassium 3.7 mmol/L (3.5-5.0) 02/06/18 05:51 Chloride 107 mmol/L (101-111) 02/06/18 05:51 Carbon Dioxide 25 mmol/L (21-32) 02/06/18 05:51 Anion Gap 5.0 (6-13) L 02/06/18 05:51 BUN 7 mg/dL (6-20) 02/06/18 05:51 Creatinine 0.8 mg/dL (0.4-1.0) 02/06/18 05:51 Estimated GFR (MDRD) 72 (>89) L 02/06/18 05:51 Glucose 134 mg/dL (70-100) H 02/06/18 05:51 Lactic Acid 1.1 mmol/L (0.5-2.2) 02/05/18 18:23 Calcium 8.3 mg/dL (8.5-10.3) L 02/06/18 05:51 Magnesium 1.6 mg/dL (1.7-2.8) L 02/06/18 05:51 Total Bilirubin 1.9 mg/dL (0.2-1.0) H 02/06/18 05:51 AST 20 IU/L (10-42) 02/06/18 05:51 ALT 10 IU/L (10-60) 02/06/18 05:51 Alkaline Phosphatase 53 IU/L (42-121) 02/06/18 05:51 Total Protein 5.9 g/dL (6.7-8.2) L 02/06/18 05:51 Albumin 3.2 g/dL (3.2-5.5) 02/06/18 05:51 Globulin 2.7 g/dL (2.1-4.2) 02/06/18 05:51 Albumin/Globulin Ratio 1.2 (1.0-2.2) 02/06/18 05:51 Lipase 33 U/L (22-51) 02/05/18 06:28 TSH 9.87 uIU/mL (0.34-5.60) H 02/05/18 18:23 Urine Color YELLOW 02/05/18 06:51 Urine Clarity CLEAR (CLEAR) 02/05/18 06:51 Urine pH 5.5 PH (5.0-7.5) 02/05/18 06:51 Ur Specific [place] >=1.030 (1.002-1.030) H 02/05/18 06:51 Urine Protein NEGATIVE mg/dL (NEGATIVE) 02/05/18 06:51 Urine Glucose (UA) NEGATIVE mg/dL (NEGATIVE) 02/05/18 06:51 Urine Ketones NEGATIVE mg/dL (NEGATIVE) 02/05/18 06:51 Urine Occult Blood MODERATE (NEGATIVE) H 02/05/18 06:51 Urine Nitrite NEGATIVE (NEGATIVE) 02/05/18 06:51 Urine Bilirubin NEGATIVE (NEGATIVE) 02/05/18 06:51 Urine Urobilinogen 0.2 (NORMAL) E.U./dL (NORMAL) 02/05/18 06:51 Ur Leukocyte Esterase NEGATIVE (NEGATIVE) 02/05/18 06:51 Urine RBC 6-10 /HPF (0-5) H 02/05/18 06:51 Urine WBC 4-5 /HPF (0-5) 02/05/18 06:51 Ur Squamous Epith Cells MOD Squamous (<= Few) H 02/05/18 06:51 Urine Bacteria Few /HPF (None Seen) 02/05/18 06:51 Urine Casts 3-5 Hyaline Casts /LPF 02/05/18 06:51 Urine Mucus Few Strands 02/05/18 06:51 Ur Microscopic Review INDICATED 02/05/18 06:51 Urine Culture Comments NOT INDICATED 02/05/18 06:51 Stool Leukocytes, Qual POSITIVE (Negative) 02/05/18 20:05 Blood Type O POSITIVE 02/06/18 05:51 Blood Type Recheck O POSITIVE 02/06/18 06:59 Antibody Screen NEGATIVE 02/06/18 05:51 - Procedures Procedures: Procedures ESOPHAGOGASTRODUODENOSCOPY [EGD] W/CLOSED BIOPSY (03/19/14) EXCISION OF ESOPHAGUS, ENDO, DIAGN (03/31/17) EXCISION OF STOMACH, ENDO, DIAGN (03/31/17)
[2018-02-06 13:18] LABS: BASOPHILS % (AUTO) 0.1 %; EOSINOPHILS % (AUTO) 0.2 %; HGB - HEMOGLOBIN 11.3 g/dL (12.0-16.0); LYMPHOCYTES # (AUTO) 1.1 10^3/uL (1.5-3.5); LYMPHOCYTES % (AUTO) 10.7 %; MEAN CORPUSCULAR HEMOGLOBIN 30.5 pg (27.0-31.0); MEAN CORPUSCULAR HGB CONC 34.2 g/dL (32.0-36.0); MEAN CORPUSCULAR VOLUME 89.2 fL (81.0-99.0); MEAN PLATELET VOLUME 7.7 fL (7.9-10.8); MONOCYTES # (AUTO) 0.7 10^3/uL (0.0-1.0); MONOCYTES % (AUTO) 7.2 %; NEUTROPHILS # (AUTO) 8.5 10^3/uL (1.5-6.6); NEUTROPHILS % (AUTO) 81.8 %; PLT - PLATELET COUNT 178 10^3/uL (130-450); WHITE BLOOD COUNT 10.3 x10^3/uL (4.8-10.8)
[2018-02-06] MEDS: MESALAMINE 400 MG CAPSULE PO SCH ×2 (13:53→21:27)
[2018-02-06] MEDS: ACETAMINOPHEN 1,000 MG/100 ML 100 ML IV PRN (17:20)
[2018-02-06 20:05] LABS: HGB - HEMOGLOBIN 10.7 g/dL (12.0-16.0)
[2018-02-06] MEDS: CALCIUM CARBONATE CHEW 500 MG TABLET PO SCH (22:50)
[2018-02-06] MEDS: ZOLPIDEM 5 MG TABLET PO PRN (22:51)
[2018-02-07] MEDS: MESALAMINE 400 MG CAPSULE PO SCH ×5 (01:59→22:27)
[2018-02-07] MEDS: SODIUM CHLORIDE FLUSH 0.9% 10 ML SYRINGE IVP SCH ×3 (01:59→16:26)
--- NOTE | 2018-02-07 02:39 | CONSULTATION NOTE ---
DATE OF SERVICE: 02/06/2018 Physician: Julien Resendiz MD REFERRING PHYSICIAN: Dr. Grant. REASON FOR REFERRAL: Abdominal pain and bloody diarrhea. HISTORY OF PRESENT ILLNESS: The patient is a 67-year-old female who presents with a 2 day history of abdominal pain, diarrhea. Her history is significant in which approximately 5 months ago she was admitted to the hospital with these same symptoms. CT scan of the abdomen and pelvis was obtained, which showed thickening of the rectum and sigmoid colon, probable inflammatory bowel disease. She was started on Cipro and Flagyl and was discharged home. She was doing well with her being scheduled to followup with an endoscopist to see about doing a colonoscopy. However, she developed this abdominal pain 2 days ago along with diarrhea. Currently, she is only having bright red blood per rectum. She continues to have the pain on the left side, but this is improving. She has not had any fever. She had a CT scan of the abdomen and pelvis during this hospitalization, which showed thickening of the descending colon, most likely colitis, but may be undistended bowel. She denies any history of hemorrhoidal disease or any problems with it. She does have a long history of upper GI symptoms, having numerous endoscopies and manometry and workup of this. She has had also gastritis and was on proton pump inhibitors. PAST MEDICAL HISTORY 1. Hypothyroidism. 2. Hyperlipidemia. 3. Gastroesophageal reflux disease along with peptic ulcerations. ALLERGIES 1. SULFA. 2. AMOXICILLIN. MEDICATIONS 1. Celexa 2. Ativan. 3. Zolpidem. 4. Pravastatin. PAST SURGICAL HISTORY 1. 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. 2. . SOCIAL HISTORY: The patient is . FAMILY HISTORY: Noncontributory. REVIEW OF SYSTEMS GASTROINTESTINAL: Abdominal pain, diarrhea, and blood in the stool. PSYCHOLOGICAL: Anxiety. HABITS: The patient denies any smoking, alcohol, or drug use. PHYSICAL EXAMINATION VITAL SIGNS: Temperature is 37.1, pulse 58, blood pressure 90/40. GENERAL: The patient is lying in bed. She is cooperative, not in any distress at the current time. Eyes: Nonicteric. NECK: No lymphadenopathy. HEART: Mild bradycardic. LUNGS: Clear. BACK: Nontender. ABDOMEN: Soft, tender on the left side without peritoneal signs. No hernias. EXTREMITIES: No edema or cyanosis. NEUROLOGICAL: The patient appears to be neurologically intact without any deficit. PSYCHOLOGICAL: The patient is coherent, cooperative, appears to answer questions fully. LABORATORY DATA: White blood cell count of 10; hemoglobin 11.3; total bilirubin of 1.9, up from 1.6; creatinine 0.8; sodium 137; potassium 3.7; TSH of 9.87. CT scan of abdomen and pelvis see history of present illness. ASSESSMENT 1. Abdominal pain along with bloody diarrhea with CT scan findings of thickened bowel consistent with colitis. She has infectious disease panels evaluating her stool ordered. It is unlikely to be due to this. This is recurrent and also unlikely be ischemic colitis. She does not have any significant diverticula being present on the CT scan. Her last colonoscopy was approximately 10 years ago. I feel that she has probable ulcerative colitis versus Crohn's disease. At the current time, I would empirically treat her for this. 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 I would recommend continued Cipro and Flagyl, but adding mesalamine. I have discussed enemas using mesalamine; however, she does not feel like she would be able to hold an enema in and would be uncomfortable with this, doing it daily. I have explained if she does not improve on this treatment, then consideration of steroids. 2. Gastroesophageal reflux disease. 3. Hyperlipidemia. 4. Hyperbilirubinemia of unknown etiology. Will need to be followed. 5. Hypothyroidism with elevated TSH level. She may need to increase her dose of thyroid medication. PLAN 1. Continue liquids. 2. Cipro and Flagyl with mesalamine being added. 3. Follow hemoglobin. 4. Probable outpatient colonoscopy. TD: 02/07/2018 02:38
[2018-02-07] MEDS: LACTATED RINGERS 1,000 ML IV SCH ×4 (03:20→15:15)
[2018-02-07] MEDS: CIPROFLOXACIN 400 MG/200 ML 200 ML IV SCH ×2 (04:19→16:22)
[2018-02-07] MEDS: metroNIDAZOLE 500 MG/100 ML 500 MG/100 ML BAG IV SCH ×3 (05:53→22:30)
[2018-02-07 06:08] LABS: ALBUMIN/GLOBULIN RATIO 1.3 (1.0-2.2); ALKALINE PHOSPHATASE 46 IU/L (42-121); ALT ALANINE AMINOTRANSFERASE 11 IU/L (10-60); AST ASPARTATE AMINOTRANSFERASE 23 IU/L (10-42); BILIRUBIN,TOTAL 1.8 mg/dL (0.2-1.0); BUN - BLOOD UREA NITROGEN < 5 mg/dL (6-20); CALCIUM 8.2 mg/dL (8.5-10.3); CARBON DIOXIDE - CO2 25 mmol/L (21-32); CHLORIDE 103 mmol/L (101-111); CREATININE 0.6 mg/dL (0.4-1.0); CRP - C-REACTIVE PROTEIN 4.6 mg/dL (0-1.0); GFR - MDRD 100 (>89); GLUCOSE 122 mg/dL (70-100); SODIUM 136 mmol/L (135-145); TOTAL PROTEIN 5.4 g/dL (6.7-8.2)
[2018-02-07] MEDS: THYROID 60 MG TABLET PO SCH (06:28)
[2018-02-07] MEDS ORDERED: LEVOTHYROXINE 100 MCG TABLET PO SCH (07:00)
[2018-02-07 08:16] LABS: BASOPHILS % (AUTO) 0.2 %; EOSINOPHILS # (AUTO) 0.1 10^3/uL (0.0-0.7); EOSINOPHILS % (AUTO) 0.7 %; HGB - HEMOGLOBIN 11.3 g/dL (12.0-16.0); LYMPHOCYTES # (AUTO) 1.3 10^3/uL (1.5-3.5); LYMPHOCYTES % (AUTO) 12.3 %; MEAN CORPUSCULAR HEMOGLOBIN 30.7 pg (27.0-31.0); MEAN CORPUSCULAR HGB CONC 34.8 g/dL (32.0-36.0); MEAN CORPUSCULAR VOLUME 88.2 fL (81.0-99.0); MEAN PLATELET VOLUME 7.7 fL (7.9-10.8); MONOCYTES # (AUTO) 0.9 10^3/uL (0.0-1.0); MONOCYTES % (AUTO) 9.2 %; NEUTROPHILS # (AUTO) 7.9 10^3/uL (1.5-6.6); NEUTROPHILS % (AUTO) 77.6 %; PLT - PLATELET COUNT 181 10^3/uL (130-450); RED BLOOD COUNT 3.68 10^6/uL (4.20-5.40); RED CELL DISTRIBUTION WIDTH 13.2 % (12.0-15.0); WHITE BLOOD COUNT 10.2 x10^3/uL (4.8-10.8)
[2018-02-07] MEDS: POTASSIUM CHLOR 10 MEQ/100 ML 10 MEQ/100 ML BAG IV SCH ×4 (09:02→13:32)
[2018-02-07] MEDS: PANTOPRAZOLE 40 MG VIAL IVP SCH (09:02)
[2018-02-07] MEDS: CALCIUM CARBONATE CHEW 500 MG TABLET PO SCH ×2 (09:02→22:27)
[2018-02-07] MEDS: CITALOPRAM 10 MG TABLET PO SCH ×3 (09:02→22:29)
[2018-02-07] MEDS: SODIUM CHLORIDE 0.9% 1,000 ML IV SCH ×2 (09:03→14:58)
[2018-02-07] MEDS: SODIUM CHLORIDE FLUSH 0.9% 10 ML SYRINGE IVP PRN (09:03)
[2018-02-07] MEDS: POLYETHYLENE GLYCOL 3350 17 GM PACKET PO SCH (09:09)
--- NOTE | 2018-02-07 13:27 | PROVIDER PROGRESS NOTE ---
Assessment/Plan - Problem List (1) Colitis Assessment/Plan: Pt on iv Cipro and iv Flagyl and po Mesalamine. Pt refused last evening's dose of Mesalamine. She told me it was due to not wanting to take steroids. Dr Niharika Resendiz discussed options of management with her, and she is now agreeable. Will advance diet as per surgeon, to full liquids with crackers Ok. Nutrition consult for determining if she needs tpn. (2) Hypotension Assessment/Plan: Resolved. Will continue some hydration until her po intake is adequate for hydration. (3) Bradycardia Assessment/Plan: Continue to monitor HR on telemetry. (4) Hypothyroidism Assessment/Plan: Pt started on a new preparation of thyroid replacement yesterday. She needs to be reminded to use this faithfully, or even take on the same schedule, even if it close to meals, because she forgets it. (5) Non compliance with medical treatment Assessment/Plan: Yesterday she described "wanting to be on as few meds as possible". She understands the current need for iv antibiotics. Dr Resendiz described the options of Mesalamine po since she cannot hold a retention enema. If she does not have improvement in 48 hours, then she would agree to be started on Prednisone. - Current Meds Current Meds: Current Medications Generic Name Dose Route Start Last Admin Trade Name Freq PRN Reason Stop Dose Admin Calcium Carbonate/Glycine 500 mg 02/06/18 22:00 02/07/18 09:02 Tums PO 500 mg BID MELVINA Administration Metronidazole 500 mg in 100 mls @ 100 mls/hr 02/05/18 14:00 02/07/18 06:56 Flagyl 500 Mg/100 Ml IV Infused Q8H MELVINA Infusion Ciprofloxacin 200 mls @ 200 mls/hr 02/05/18 17:00 02/07/18 05:23 Cipro 400 Mg/200 Ml IV Infused Q12H MELVINA Infusion Acetaminophen 100 mls @ 400 mls/hr 02/05/18 16:01 02/06/18 17:39 Ofirmev IV Infused Q6HR PRN Infusion PAIN Lactated Ringer's 1,000 mls @ 200 mls/hr 02/05/18 18:00 02/07/18 09:31 Lr IV Not Given .Q5H MELVINA Sodium Chloride 1,000 mls @ 83.333 mls/hr 02/06/18 09:00 02/07/18 09:03 Normal Saline 0.9% IV 83.333 mls/hr .Q12H MELVINA Administration Mesalamine 800 mg 02/06/18 14:00 02/07/18 13:07 Delz[place] PO 800 mg TID MELVINA Administration Pantoprazole Sodium 40 mg 02/07/18 09:00 02/07/18 09:02 Protonix IVP 40 mg DAILY MELVINA Administration Polyethylene Glycol 17 gm 02/06/18 09:00 02/07/18 09:09 Miralax PO Not Given DAILY MELVINA Prochlorperazine Edisylate 10 mg 02/05/18 11:22 02/05/18 12:50 Compazine Inj IVP 10 mg Q6HR PRN Administration Nausea / Vomiting Sodium Chloride 10 ml 02/05/18 11:22 02/07/18 09:03 Normal Saline Flush 0.9% IVP 10 ml PRN PRN Administration NEEDED PER PROVIDER ORDERS Sodium Chloride 10 ml 02/05/18 17:00 02/07/18 09:09 Normal Saline Flush 0.9% IVP Not Given 0100,0900,1700 MELVINA Thyroid 60 mg 02/07/18 07:00 02/07/18 06:28 [place] Thyroid PO 60 mg QDAC MELVINA Administration Zolpidem Tartrate 10 mg 02/05/18 20:36 02/06/18 22:51 Ambien PO 10 mg QPM PRN Administration Insomnia - Lab Result Fish Bone Diagrams: 02/07/18 08:05 02/07/18 05:41 - Additional Planning My Orders: My Active Orders 02/07/18 07:00 Thyroid [[place] Thyroid] 60 mg PO QDAC 02/07/18 09:00 Pantoprazole [Protonix] 40 mg IVP DAILY 02/07/18 09:10 Citalopram [CeleXA] 40 mg PO QPM 02/07/18 Lunch Full Liquid Diet [DIET] 02/08/18 05:00 CBC - COMP BLD CT W/AUTO DIFF [HEME] DAILYLAB CMP [COMPREHENSIVE METABOLIC PANEL] [CHEM] DAILYLAB 02/09/18 05:00 CBC - COMP BLD CT W/AUTO DIFF [HEME] DAILYLAB Subjective - Subjective Patient Reports: Abdominal Pain, Diarrhea (Bloody loose diarrhea) Nursing Reports: Other (Pt refused last evening's dose of Mesalamine. Dr Niharika Resendiz discussed options of management with her, and she is now agreeable.) Objective Vital Signs: Vital Signs - 24 hr 02/06/18 02/06/18 02/06/18 16:28 20:00 23:35 Temperature 37.4 C 36.7 C 36.5 C Heart Rate [ 57 L 58 L 67 Brachial] Respiratory 16 16 Rate Blood Pressure 110/62 131/68 H 122/85 H [Right Brachial artery] O2 Saturation 95 95 95 02/07/18 02/07/18 02/07/18 04:30 08:19 13:00 Temperature 36.7 C 36.5 C 36.4 C L Heart Rate [ 66 61 58 L Brachial] Respiratory 16 18 18 Rate Blood Pressure 108/75 115/68 133/78 H [Right Brachial artery] O2 Saturation 97 92 97 Oxygen O2 Source Room air I&O (Last 24 Hrs): Intake and Output Totals x24h 02/05/18 02/06/18 02/07/18 23:59 23:59 23:59 Intake Total 2813.333 6106.666 3382.497 Output Total 200 Balance 2813.333 6106.666 3182.497 General: Alert, Oriented x3 HEENT: Mucous membr. moist/pink Neck: Supple, No JVD Neuro: Non Focal Cardiovascular: Regular rate, No murmurs Respiratory: No respiratory distress Abdomen: Soft, Other (Hyperactive bowel sounds) Extremities: No edema - Results Results: Laboratory Results WBC 10.2 x10^3/uL (4.8-10.8) 02/07/18 08:05 RBC 3.68 10^6/uL (4.20-5.40) L 02/07/18 08:05 Hgb 11.3 g/dL (12.0-16.0) L 02/07/18 08:05 Hct 32.4 % (37.0-47.0) L 02/07/18 08:05 MCV 88.2 fL (81.0-99.0) 02/07/18 08:05 MCH 30.7 pg (27.0-31.0) 02/07/18 08:05 MCHC 34.8 g/dL (32.0-36.0) 02/07/18 08:05 RDW 13.2 % (12.0-15.0) 02/07/18 08:05 Plt Count 181 10^3/uL (130-450) 02/07/18 08:05 MPV 7.7 fL (7.9-10.8) L 02/07/18 08:05 Neut # 7.9 10^3/uL (1.5-6.6) H 02/07/18 08:05 Lymph # 1.3 10^3/uL (1.5-3.5) L 02/07/18 08:05 [place] # 0.9 10^3/uL (0.0-1.0) 02/07/18 08:05 Eos # 0.1 10^3/uL (0.0-0.7) 02/07/18 08:05 Baso # 0.0 10^3/uL (0.0-0.1) 02/07/18 08:05 Absolute Nucleated RBC 0.00 x10^3/uL 02/07/18 08:05 Nucleated RBC % 0.0 /100WBC 02/07/18 08:05 ESR 29 mm/Hr (0-30) 02/07/18 05:41 PT 11.4 secs (9.9-12.6) 02/05/18 06:28 INR 1.0 (0.8-1.2) 02/05/18 06:28 APTT 26.8 secs (24.9-33.3) 02/05/18 06:28 Sodium 136 mmol/L (135-145) 02/07/18 05:41 Potassium 3.1 mmol/L (3.5-5.0) L 02/07/18 05:41 Chloride 103 mmol/L (101-111) 02/07/18 05:41 Carbon Dioxide 25 mmol/L (21-32) 02/07/18 05:41 Anion Gap 8.0 (6-13) 02/07/18 05:41 BUN < 5 mg/dL (6-20) L 02/07/18 05:41 Creatinine 0.6 mg/dL (0.4-1.0) 02/07/18 05:41 Estimated GFR (MDRD) 100 (>89) 02/07/18 05:41 Glucose 122 mg/dL (70-100) H 02/07/18 05:41 Lactic Acid 1.1 mmol/L (0.5-2.2) 02/05/18 18:23 Calcium 8.2 mg/dL (8.5-10.3) L 02/07/18 05:41 Magnesium 1.6 mg/dL (1.7-2.8) L 02/06/18 05:51 Total Bilirubin 1.8 mg/dL (0.2-1.0) H 02/07/18 05:41 AST 23 IU/L (10-42) 02/07/18 05:41 ALT 11 IU/L (10-60) 02/07/18 05:41 Alkaline Phosphatase 46 IU/L (42-121) 02/07/18 05:41 C-Reactive Protein 4.6 mg/dL (0-1.0) H 02/07/18 05:41 Total Protein 5.4 g/dL (6.7-8.2) L 02/07/18 05:41 Albumin 3.0 g/dL (3.2-5.5) L 02/07/18 05:41 Globulin 2.4 g/dL (2.1-4.2) 02/07/18 05:41 Albumin/Globulin Ratio 1.3 (1.0-2.2) 02/07/18 05:41 Lipase 33 U/L (22-51) 02/05/18 06:28 TSH 9.87 uIU/mL (0.34-5.60) H 02/05/18 18:23 Urine Color YELLOW 02/05/18 06:51 Urine Clarity CLEAR (CLEAR) 02/05/18 06:51 Urine pH 5.5 PH (5.0-7.5) 02/05/18 06:51 Ur Specific [place] >=1.030 (1.002-1.030) H 02/05/18 06:51 Urine Protein NEGATIVE mg/dL (NEGATIVE) 02/05/18 06:51 Urine Glucose (UA) NEGATIVE mg/dL (NEGATIVE) 02/05/18 06:51 Urine Ketones NEGATIVE mg/dL (NEGATIVE) 02/05/18 06:51 Urine Occult Blood MODERATE (NEGATIVE) H 02/05/18 06:51 Urine Nitrite NEGATIVE (NEGATIVE) 02/05/18 06:51 Urine Bilirubin NEGATIVE (NEGATIVE) 02/05/18 06:51 Urine Urobilinogen 0.2 (NORMAL) E.U./dL (NORMAL) 02/05/18 06:51 Ur Leukocyte Esterase NEGATIVE (NEGATIVE) 02/05/18 06:51 Urine RBC 6-10 /HPF (0-5) H 02/05/18 06:51 Urine WBC 4-5 /HPF (0-5) 02/05/18 06:51 Ur Squamous Epith Cells MOD Squamous (<= Few) H 02/05/18 06:51 Urine Bacteria Few /HPF (None Seen) 02/05/18 06:51 Urine Casts 3-5 Hyaline Casts /LPF 02/05/18 06:51 Urine Mucus Few Strands 02/05/18 06:51 Ur Microscopic Review INDICATED 02/05/18 06:51 Urine Culture Comments NOT INDICATED 02/05/18 06:51 Stool Leukocytes, Qual POSITIVE (Negative) 02/05/18 20:05 Blood Type O POSITIVE 02/06/18 05:51 Blood Type Recheck O POSITIVE 02/06/18 06:59 Antibody Screen NEGATIVE 02/06/18 05:51 - Procedures Procedures: Procedures ESOPHAGOGASTRODUODENOSCOPY [EGD] W/CLOSED BIOPSY (03/19/14) EXCISION OF ESOPHAGUS, ENDO, DIAGN (03/31/17) EXCISION OF STOMACH, ENDO, DIAGN (03/31/17)
[2018-02-07] MEDS ORDERED: ZOLPIDEM 5 MG TABLET PO PRN (19:48)
[2018-02-07] MEDS: LORazepam 0.5 MG TABLET PO SCH ×2 (20:54→22:28)
[2018-02-08] MEDS: SODIUM CHLORIDE FLUSH 0.9% 10 ML SYRINGE IVP SCH ×4 (04:27→23:33)
[2018-02-08] MEDS: CIPROFLOXACIN 400 MG/200 ML 200 ML IV SCH (04:27)
[2018-02-08 05:24] LABS: BASOPHILS % (AUTO) 0.3 %; EOSINOPHILS # (AUTO) 0.1 10^3/uL (0.0-0.7); EOSINOPHILS % (AUTO) 1.9 %; HGB - HEMOGLOBIN 10.6 g/dL (12.0-16.0); LYMPHOCYTES % (AUTO) 14.7 %; MEAN CORPUSCULAR HEMOGLOBIN 29.6 pg (27.0-31.0); MEAN CORPUSCULAR HGB CONC 33.6 g/dL (32.0-36.0); MEAN PLATELET VOLUME 7.9 fL (7.9-10.8); MONOCYTES # (AUTO) 0.7 10^3/uL (0.0-1.0); MONOCYTES % (AUTO) 10.1 %; NEUTROPHILS # (AUTO) 5.1 10^3/uL (1.5-6.6); PLT - PLATELET COUNT 167 10^3/uL (130-450); RED BLOOD COUNT 3.58 10^6/uL (4.20-5.40)
[2018-02-08 05:41] LABS: ALBUMIN 3.3 g/dL (3.2-5.5); ALBUMIN/GLOBULIN RATIO 1.2 (1.0-2.2); ALKALINE PHOSPHATASE 46 IU/L (42-121); ALT ALANINE AMINOTRANSFERASE 12 IU/L (10-60); AST ASPARTATE AMINOTRANSFERASE 26 IU/L (10-42); BILIRUBIN,TOTAL 1.5 mg/dL (0.2-1.0); BUN - BLOOD UREA NITROGEN < 5 mg/dL (6-20); CALCIUM 8.5 mg/dL (8.5-10.3); CARBON DIOXIDE - CO2 25 mmol/L (21-32); CHLORIDE 106 mmol/L (101-111); CREATININE 0.6 mg/dL (0.4-1.0); GFR - MDRD 100 (>89); GLUCOSE 131 mg/dL (70-100); SODIUM 140 mmol/L (135-145)
[2018-02-08] MEDS: MESALAMINE 400 MG CAPSULE PO SCH ×3 (05:47→22:05)
[2018-02-08] MEDS: metroNIDAZOLE 500 MG/100 ML 500 MG/100 ML BAG IV SCH (05:47)
[2018-02-08] MEDS: THYROID 60 MG TABLET PO SCH (05:48)
--- NOTE | 2018-02-08 07:58 | PROVIDER PROGRESS NOTE ---
Subjective - Prog Note Date Prog Note Date: 02/08/18 Prog Note Time: 07:58 - Subjective Subjective: no new events overnight per hospitalist. Finished K riders yesterday and her K is still low. Bloody BM has resolved. Full liquid diet. Still with diarrhea but no blood Mild abd pain has resolved. She keeps on repeating her request to leave. She acknowledges mild problem with memory loss. It's hard for her to be sick and she is overwhelmed with all the information being presented much less all the medicines. Current Medications - Current Medications Current Medications: Active Medications Calcium Carbonate/Glycine (Tums) 500 mg PO BID [facility] Last Admin: 02/08/18 08:49 Dose: 500 mg Citalopram Hydrobromide (Celexa) 40 mg PO QPM [facility] Last Admin: 02/07/18 22:29 Dose: 40 mg Metronidazole (Flagyl 500 Mg/100 Ml) 500 mg in 100 mls @ 100 mls/hr IV Q8H [facility] Last Infusion: 02/08/18 06:55 Dose: Infused Ciprofloxacin (Cipro 400 Mg/200 Ml) 200 mls @ 200 mls/hr IV Q12H [facility] Last Infusion: 02/08/18 06:22 Dose: Infused Acetaminophen (Ofirmev) 100 mls @ 400 mls/hr IV Q6HR PRN PRN Reason: PAIN Last Infusion: 02/06/18 17:39 Dose: Infused Sodium Chloride (Normal Saline 0.9%) 1,000 mls @ 83.333 mls/hr IV .Q12H [facility] Last Infusion: 02/08/18 03:31 Dose: Infused Potassium Chloride (Potassium Chloride) 10 meq in 100 mls @ 100 mls/hr IV Q1H [facility] Stop: 02/08/18 13:59 Lorazepam (Ativan) 2 mg PO QPM [facility] Last Admin: 02/07/18 22:28 Dose: 2 mg Mesalamine (Delzicol) 800 mg PO TID [facility] Last Admin: 02/08/18 05:47 Dose: 800 mg Pantoprazole Sodium (Protonix) 40 mg IVP DAILY [facility] Last Admin: 02/08/18 08:45 Dose: 40 mg Polyethylene Glycol (Miralax) 17 gm PO DAILY [facility] Last Admin: 02/08/18 08:50 Dose: Not Given Prochlorperazine Edisylate (Compazine Inj) 10 mg IVP Q6HR PRN PRN Reason: Nausea / Vomiting Last Admin: 02/05/18 12:50 Dose: 10 mg Sodium Chloride (Normal Saline Flush 0.9%) 10 ml IVP PRN PRN PRN Reason: NEEDED PER PROVIDER ORDERS Last Admin: 02/07/18 09:03 Dose: 10 ml Sodium Chloride (Normal Saline Flush 0.9%) 10 ml IVP 0100,0900,1700 [facility] Last Admin: 02/08/18 08:45 Dose: 10 ml Thyroid ([place] Thyroid) 60 mg PO QDAC [facility] Last Admin: 02/08/18 05:48 Dose: 60 mg Zolpidem Tartrate (Ambien) 10 mg PO QPM PRN PRN Reason: Insomnia Citalopram [CeleXA] 40 mg PO DAILY 03/19/13 LORazepam [Ativan] 1 mg PO BID PRN 03/19/13 Cholecalciferol (Vitamin D3) [Vitamin D] 2,000 unit PO DAILY 03/31/17 Lactobacillus Acidophilus [Probiotic Acidophilus] 1 each PO DAILY 02/05/18 Levothyroxine Sodium 100 mcg PO DAILY 02/05/18 Omeprazole 40 mg PO BID 02/05/18 Pravastatin [Pravachol] 10 mg PO DAILY 02/05/18 Zolpidem Tartrate [Ambien] 10 mg PO QPM PRN 02/05/18 Objective - Vital Signs/Intake & Output Reviewed Vital Signs: Yes Vital Signs: Vital Signs x48h Temp Pulse Resp BP Pulse Ox 02/08/18 07:51 36.7 C 57 L 18 124/77 94 02/08/18 04:25 36.5 C 61 16 120/62 95 02/08/18 00:03 36.9 C 59 L 16 120/68 94 Intake & Output: Intake & Output 02/05/18 02/06/18 02/07/18 02/08/18 23:59 23:59 23:59 23:59 Intake Total 2813.333 6106.666 6435.551 1400 Output Total 200 Balance 2813.333 6106.666 6235.551 1400 - Objective General Appearance: positive: No acute distress, Alert, Other (pale middle aged white female who looks stated age, eating her full liquid diet without problems. ) Eyes Bilateral: positive: PERRL, EOMI ENT: positive: Pharynx nml Neck: positive: No JVD. negative: Stiff neck, Carotid bruit Respiratory: positive: Chest non-tender. negative: Wheezes, Rales, Rhonchi Cardiovascular: positive: Regular rate & rhythm, Bradycardia, Other (tele unit is on and driving her crazy) Abdomen: positive: Non-tender, Nml bowel sounds, No distention Skin: positive: Warm, Dry, Pallor Extremities: positive: Non-tender, Full ROM, No pedal edema Neurologic/Psychiatric: positive: Oriented x3, CN's nml (2-12), Motor nml - Lab Results Fish Bones: 02/08/18 05:11 02/08/18 05:11 Other Labs: Lab Results x24hrs 02/08/18 02/08/18 02/07/18 Range/Units 05:11 05:11 08:05 WBC 7.0 10.2 (4.8-10.8) x10^3/uL RBC 3.58 L 3.68 L (4.20-5.40) 10^6/uL Hgb 10.6 L 11.3 L (12.0-16.0) g/dL Hct 31.5 L 32.4 L (37.0-47.0) % MCV 88.0 88.2 (81.0-99.0) fL MCH 29.6 30.7 (27.0-31.0) pg MCHC 33.6 34.8 (32.0-36.0) g/dL RDW 13.0 13.2 (12.0-15.0) % Plt Count 167 181 (130-450) 10^3/uL MPV 7.9 7.7 L (7.9-10.8) fL Neut # 5.1 7.9 H (1.5-6.6) 10^3/uL Lymph # 1.0 L 1.3 L (1.5-3.5) 10^3/uL Jerauld # 0.7 0.9 (0.0-1.0) 10^3/uL Eos # 0.1 0.1 (0.0-0.7) 10^3/uL Baso # 0.0 0.0 (0.0-0.1) 10^3/uL Absolute Nucleated RBC 0.00 0.00 x10^3/uL Nucleated RBC % 0.0 0.0 /100WBC Sodium 140 (135-145) mmol/L Potassium 3.2 L (3.5-5.0) mmol/L Chloride 106 (101-111) mmol/L Carbon Dioxide 25 (21-32) mmol/L Anion Gap 9.0 (6-13) BUN < 5 L (6-20) mg/dL Creatinine 0.6 (0.4-1.0) mg/dL Estimated GFR (MDRD) 100 (>89) Glucose 131 H (70-100) mg/dL Calcium 8.5 (8.5-10.3) mg/dL Total Bilirubin 1.5 H (0.2-1.0) mg/dL AST 26 (10-42) IU/L ALT 12 (10-60) IU/L Alkaline Phosphatase 46 (42-121) IU/L Total Protein 6.0 L (6.7-8.2) g/dL Albumin 3.3 (3.2-5.5) g/dL Globulin 2.7 (2.1-4.2) g/dL Albumin/Globulin Ratio 1.2 (1.0-2.2) ABX Reporting Has patient been on IV antibiotics over the past 48 hours?: Yes Assessment/Plan - Problem List (1) Colitis Impression: Pt on iv Cipro and iv Flagyl and po Mesalamine. Pt refused 02/06 evening's dose of Mesalamine. She is just overwhelmed with meds and it was just one more med. She is still firm she doesn't want steroids Dr Niharika Resendiz discussed options of management with her, and she is now agreeable if necessary. Advance diet to regular today. Nutrition consult for determining if she needs tpn. (2) Hypotension Assessment/Plan: Resolved. On IVF for hydration. IV lock and see how she does. (3) Bradycardia Assessment/Plan: staying stable with her rate and she is "going crazy" with the wires. Will stop tele. (4) Hypothyroidism Assessment/Plan: Pt started on a new preparation of thyroid replacement 02/06 She needs to be reminded to use this faithfully, or even take on the same schedule, even if it close to meals, because she forgets it. (5) Non compliance with medical treatment Assessment/Plan: 02/06 she described "wanting to be on as few meds as possible". She understands the current need for iv antibiotics. Dr Resendiz described the options of Mesalamine po since she cannot hold a retention enema. If she does not have improvement in 48 hours, then she would agree to be started on Prednisone. Today is 24 hours later and she has improved. Will continue to monitor. Will also print up information on colitis and treatment for her review to see if that winsome help.
[2018-02-08] MEDS: PANTOPRAZOLE 40 MG VIAL IVP SCH (08:45)
[2018-02-08] MEDS: CALCIUM CARBONATE CHEW 500 MG TABLET PO SCH ×2 (08:49→22:07)
[2018-02-08] MEDS: POLYETHYLENE GLYCOL 3350 17 GM PACKET PO SCH (08:50)
[2018-02-08] MEDS: POTASSIUM CHLOR 10 MEQ/100 ML 10 MEQ/100 ML BAG IV SCH ×6 (10:00→19:23)
[2018-02-08] MEDS: SODIUM CHLORIDE FLUSH 0.9% 10 ML SYRINGE IVP PRN (10:09)
[2018-02-08] MEDS: SODIUM CHLORIDE 0.9% 1,000 ML IV SCH ×2 (11:27→22:12)
[2018-02-08] MEDS: metroNIDAZOLE 250 MG TABLET PO SCH ×2 (14:49→22:06)
[2018-02-08] MEDS: CIPROFLOXACIN 250 MG TABLET PO SCH ×2 (14:50→22:06)
[2018-02-08] MEDS: ACETAMINOPHEN 1,000 MG/100 ML 100 ML IV PRN (18:43)
[2018-02-08] MEDS ORDERED: POTASSIUM CHLOR 10 MEQ/100 ML 10 MEQ/100 ML BAG IV SCH (19:00)
[2018-02-08] MEDS: CITALOPRAM 10 MG TABLET PO SCH (22:05)
[2018-02-08] MEDS: LORazepam 0.5 MG TABLET PO SCH (22:06)
[2018-02-08] MEDS: POTASSIUM CHLORIDE 20 MEQ TABLET PO SCH (22:10)
[2018-02-09 06:05] LABS: BASOPHILS % (AUTO) 0.3 %; EOSINOPHILS # (AUTO) 0.2 10^3/uL (0.0-0.7); EOSINOPHILS % (AUTO) 3.4 %; HGB - HEMOGLOBIN 11.1 g/dL (12.0-16.0); LYMPHOCYTES # (AUTO) 1.3 10^3/uL (1.5-3.5); LYMPHOCYTES % (AUTO) 24.5 %; MEAN CORPUSCULAR HEMOGLOBIN 29.8 pg (27.0-31.0); MEAN CORPUSCULAR VOLUME 90.3 fL (81.0-99.0); MEAN PLATELET VOLUME 8.5 fL (7.9-10.8); MONOCYTES # (AUTO) 0.6 10^3/uL (0.0-1.0); MONOCYTES % (AUTO) 12.1 %; NEUTROPHILS # (AUTO) 3.1 10^3/uL (1.5-6.6); NEUTROPHILS % (AUTO) 59.7 %; PLT - PLATELET COUNT 198 10^3/uL (130-450); RED BLOOD COUNT 3.73 10^6/uL (4.20-5.40); WHITE BLOOD COUNT 5.2 x10^3/uL (4.8-10.8)
[2018-02-09] MEDS: MESALAMINE 400 MG CAPSULE PO SCH (06:23)
[2018-02-09] MEDS: metroNIDAZOLE 250 MG TABLET PO SCH (06:23)
[2018-02-09] MEDS: THYROID 60 MG TABLET PO SCH (06:24)
[2018-02-09 08:10] VITALS: BP 115/79
[2018-02-09] MEDS: POLYETHYLENE GLYCOL 3350 17 GM PACKET PO SCH (08:47)
[2018-02-09] MEDS: SODIUM CHLORIDE FLUSH 0.9% 10 ML SYRINGE IVP SCH (08:52)
[2018-02-09] MEDS: SODIUM CHLORIDE FLUSH 0.9% 10 ML SYRINGE IVP PRN (08:52)
[2018-02-09] MEDS: CALCIUM CARBONATE CHEW 500 MG TABLET PO SCH (08:52)
[2018-02-09] MEDS: POTASSIUM CHLORIDE 20 MEQ TABLET PO SCH (08:52)
[2018-02-09] MEDS: CIPROFLOXACIN 250 MG TABLET PO SCH (08:52)
[2018-02-09] MEDS: PANTOPRAZOLE 40 MG VIAL IVP SCH (08:52)
--- NOTE | 2018-02-09 08:55 | Discharge Plan ---
Discharge Plan Disposition: Home, Self Care Condition: Good Prescriptions: Ciprofloxacin [Cipro] 250 mg PO BID #20 tablet Loperamide [Imodium] 2 mg PO DAILY #30 capsule Mesalamine [Delzicol] 800 mg PO TID #90 capsule metroNIDAZOLE [Flagyl] 500 mg PO Q8H #30 tablet Potassium Chloride [K-Dur] 20 meq PO DAILYWM #30 tablet Thyroid [[place] Thyroid] 60 mg PO QDAC #30 tablet Diet: Regular Activity Restrictions: Activity as Tolerated Shower Restrictions: No Driving Restrictions: No Additional Instructions or Follow Up instructions: You were admitted to the hospital because of flareup of what we think is ulcerative colitis. You had abdominal pain, nausea and bloody diarrhea for days. To make the final diagnosis of ulcerative colitis, you need to have a colonoscopy with biopsy. You were treated with mesalamine to control the flare and you have improved because you no longer have blood, and you no longer have abdominal pain. However you still have a little bit of diarrhea. You will need follow-up consultation to make the diagnosis. You have an appointment with [facility]. But you also wish to see Dr. Wm Resendiz, a surgeon here at [facility]. Dr. Resendiz would like to see you in 2 weeks. He also wants you to take 10 more days of antibiotics. He has given you a book title from Dr. Binta Oquendo discussing inflammatory bowel disease. You will be reading that and discussing that with him at your next visit. At discharge you are receiving 10 more days of Cipro and Flagyl. Dr. Resendiz would like you to take loperamide daily as needed for your diarrhea. He will also go home on mesalamine capsules 3 times a day. While here you were started on a different type of thyroid medication. You will need to get blood work to see if the dose is enough or too much. In addition to seeing Dr. Resendiz, I would recommend that you keep your appointment with [facility]. And I would also recommend that you see your primary care provider Shasta Flores in the next 2-3 weeks. She will check the thyroid medicine dose level with a TSH blood draw. No Smoking: If you smoke, Please STOP! Call for help. Follow-up with: Leanne Flores, [Primary Care Provider] -
--- NOTE | 2018-02-10 07:44 | DISCHARGE SUMMARY ---
Physician: Mary Story MD DATE OF ADMISSION: 02/05/2018 DATE OF DISCHARGE: 02/09/2018 DISCHARGE DIAGNOSES 1. Inflammatory bowel disease, unspecified, presumed ulcerative colitis. 2. Generalized abdominal pain. 3. Bright red blood per rectum. 4. Hypotension. 5. Hypothyroid. 6. Adjustment disorder with anxiety. DISCHARGE MEDICATIONS 1. Cipro 250 mg p.o. b.i.d., #20, new prescription. 2. Loperamide 2 mg tablet daily p.r.n., new prescription. 3. Mesalamine 800 mg extended release capsules or tablets t.i.d., #90, new prescriptions. 4. Flagyl 500 mg p.o. q.8 hours, #30, new prescription. 5. Potassium 20 mEq daily, #30, new prescription. 6. [place] Thyroid 60 mg p.o. daily, #30, new prescription. 7. Vitamin D 2000 international units p.o. daily. 8. Citalopram 40 mg daily. 9. Lactobacillus tablet daily. 10. Ativan 1 mg p.o. b.i.d. p.r.n. 11. Omeprazole 40 mg p.o. b.i.d. 12. Pravachol 10 mg p.o. daily. 13. Ambien 10 mg p.o. q.p.m. p.r.n. PRINCIPAL PROCEDURES 1. Stool for C difficile toxin negative. 2. Stool for Campylobacter, salmonella, Shigella, E coli, Aeromonas, Edwardsiella, Plesiomonas, yersinia, or vibrio negative. 3. CT abdomen and pelvis: Circumferential bowel thickening in the descending colon due to under-distention versus infectious or inflammatory colitis such as ulcerative colitis. This is new since prior exam of CT 08/22/2017. HOSPITAL COURSE: The patient is a 67-year-old female who presented to the emergency room with severe, terrible abdominal cramping and pain that was generalized, nonradiating, not made better by anything, and accompanied by bloody diarrhea. It had gotten particularly worse the night before admission. She had a previous episode with hospitalization for the same thing in 07/2017. At that time, she was treated as a "nonspecific colitis" with Cipro and Flagyl. CT at that time confirmed mild colitis of the descending colon. She improved with a 10-day course of antibiotics. She did not follow through with having a colonoscopy for diagnosis. The other thing that she has been having problems with is her thyroid medication. She has also been noncompliant with that. She presented to the emergency room via ambulance because of the severe nature of her pain and now bloody diarrhea. She was afebrile at 36.5 with a heart rate of 47, respiration of 17 and a blood pressure of 122/74. She was oxygenating at 97% on room air. On physical examination, she was seen by Dr. Tabor and she had a soft, nondistended abdomen. She had epigastric and left-sided abdominal pain present on palpation but no guarding, no rebound. She was alert, oriented and spontaneously responding to conversation and commands. CT scan of the abdomen done in the emergency room showed circumferential bowel thickening in the descending colon compatible with probable ulcerative colitis. Her white cell count was 16.9. Hemoglobin 14. Random glucose was 187 and total bilirubin was 1.6. The rest of her lab studies were unremarkable. Surgical consult was obtained by Dr. Resendiz. He concurred that he felt that this problem was probable ulcerative colitis or inflammatory bowel disease, presenting as abdominal pain and bright red blood per rectum. Hemoglobin was done during her stay and she drifted down to 10.7 at most, but never needed transfusions, and her discharge hemoglobin was 11.1. Dr. Resendiz recommended empiric therapy with Flagyl and Cipro IV. He also started her on mesalamine. The patient was easily overwhelmed and quite anxious during her stay. At one point she wanted to take out the IV, and was refusing treatment of her bowel disease. She explains it as just being overwhelmed. She had been up all night long with pain, she was sleep deprived, and the beeping sound of the IVs all night long were driving her crazy. She just could not take it anymore, but in the end she was able to take her medicine and she slowly improved. White cell count drifted down to normal and on the day of discharge, she was 5.2. During her initial stay, blood pressure did go down to as low as 108/75 and rebounded into the 120 systolic with IV fluids and antibiotics. On the day of discharge, she was 115/79. During her stay, she also questioned her use of thyroid. She was noncompliant because she just felt like it was not working for her. TSH was done and she was elevated at 9.87. She was amenable to restarting her thyroid medication in the form of [place] Thyroid. She will need her TSH checked in 1 month. She is reminded to make sure she is compliant with it and takes it on a regular basis. Her main problem with the Synthroid was having to take it on an empty stomach. Hypokalemia was present during her stay, so was bloody diarrhea. Potassium went down to 3.1 and she required 60 mEq of IV potassium. She was discharged on p.o. potassium. The patient already has a colonoscopy or at least an appointment scheduled with [facility] in the next month. However, she really bonded with Dr. Wm Resendiz while he took care of her in the hospital. She thinks that she may go ahead with a colonoscopy with him. I explained to her that is a great idea, but he is a temporary physician/groundskeeper. In the future, she might want to establish with [facility] if only to maintain a stable relationship with someone who will watch her in the next year to 2 years. She is discharged with the new use of mesalamine, loperamide p.r.n., and for 10 more days of Cipro and Flagyl. I would like her to see Dr. Resendiz in 2 weeks. She needs to finish her antibiotics in the next [address] Resendiz has given her a book to read by Binta Oquendo on inflammatory bowel disease. She will read up on that before she sees Dr. Resendiz. The next few things I need her to do are: 1. Follow up with Dr. Leanne Flores in the next 2-3 weeks and get a TSH blood draw in 3 to [address] Resendiz in 2 weeks to schedule for colonoscopy and possible biopsy. 3. Follow up with her already scheduled appointment with [facility]. Maybe by then she will have her biopsy and pathology report to then discuss treatment plan for inflammatory bowel disease. On the day of discharge, she was still having occasional loose stool, but no more blood. No more abdominal pain. She was tolerating a full diet that was normal, without any problems. PHYSICAL EXAMINATION VITAL SIGNS: Temperature was 36.5, pulse was 58, blood pressure 115/79, respirations 18, 97% on room air. GENERAL: She is an alert, slightly anxious, middle-aged white female, slightly pale but alert, oriented. Able to get up in the room and ambulate without any assistance, ataxia, or orthostatic complaints. LUNGS: Clear. HEART: She had a regular rate and rhythm without murmur, rub or gallop. ABDOMEN: Vague left lower quadrant pain with deep palpation, but no rebound or guarding. Bowel sounds were normal. EXTREMITIES: Warm and she had no clubbing, cyanosis or edema. Greater than 30 minutes was spent in coordinating discharge. cc: Leanne Flores DO TD: 02/09/2018 12:42
--- NOTE | 2018-03-10 03:49 | PROVIDER PROGRESS NOTE ---
Subjective - General Admit Date: 02/05/18 - Review of Systems Gastrointestinal: positive: Other (still having abdominal pain and bloody diarrhea) Objective - Lab Results Lab Results: 02/09/18 05:35 02/08/18 05:11 - Physical Exam Abdomen: positive: Other (mild lower abdominal tenderness) Impression/Plan - Problem List Problem List: Probable recurrent inflammatory bowel disease. Cipro/flagyl as well as mesalamine started. Continue medical therapy.
--- NOTE | 2018-03-10 03:53 | PROVIDER PROGRESS NOTE ---
Subjective - General Admit Date: 02/05/18 - Review of Systems Gastrointestinal: positive: Other (abdominal pain improved. Loose stools without blood) Objective - Lab Results Lab Results: 02/09/18 05:35 02/08/18 05:11 - Physical Exam Respiratory: positive: No respiratory distress Cardiovascular: positive: Regular rate & rhythm Abdomen: positive: Non-tender, Other (no signficant abdominal tenderness) Impression/Plan - Problem List Problem List: Probable inflammatory bowel disease. Her symptoms have improved on mesalamine and cipro/flagyl. Loose stools but no further blood being grossly present. No significant abdominal pain. Continue medical therapy.
--- NOTE | 2018-03-10 04:04 | PROVIDER PROGRESS NOTE ---
Subjective - General Admit Date: 02/05/18 - Review of Systems Pulmonary: positive: No symptoms Cardiovascular: positive: No symptoms Gastrointestinal: positive: Other (no further abdominal pain) Genitourinary: positive: No symptoms Musculoskeletal: positive: No symptoms Objective - Lab Results Lab Results: 02/09/18 05:35 02/08/18 05:11 - Physical Exam Respiratory: positive: No respiratory distress Cardiovascular: positive: Regular rate & rhythm Abdomen: positive: Non-tender Impression/Plan - Problem List Problem List: Probable inflammatory bowel disease improved with mesalamine cipro/flagyl. Stool firming up with evidence of blood. D/c home on medication. f/u in clinic to schedule colonoscopy.
== END 2018-02-09 10:20 | disposition home or self-care (01) | DRG 387 ==
LOC: ED 06:04 → MS2 11:22
PROVIDERS: ADMIT Internal Medicine; ATTEND Specialist
DX: K52.9 Noninfective gastroenteritis and colitis, unspecified (principal); K51.511 Left sided colitis with rectal bleeding; I95.9 Hypotension, unspecified; E86.0 Dehydration; E03.9 Hypothyroidism, unspecified; T38.1X6A Underdosing of thyroid hormones and substitutes, initial encounter; Z91.138 Patient's unintentional underdosing of medication regimen for other reason; K21.9 Gastro-esophageal reflux disease without esophagitis; E78.5 Hyperlipidemia, unspecified; G47.9 Sleep disorder, unspecified; F43.22 Adjustment disorder with anxiety; Z91.19 Patient's noncompliance with other medical treatment and regimen; Z79.899 Other long term (current) drug therapy; Z87.19 Personal history of other diseases of the digestive system; Z87.11 Personal history of peptic ulcer disease
CPT/HCPCS: 36415; 74177; 80053; 81001; 81003; 83605; 83630; 83690; 83735; 84443; 85014; 85018; 85025; 85610; 85651; 85730; 86140; 86850; 86900; 86901; 87045; 87046; 87086; 87493; 93306; 96361; 96365; 96375; 96376; 99284

== ENCOUNTER 2018-02-11 08:00 | Outpatient (CLI) | payer MEDICARE ==
[2018-02-11 13:05] LABS: BASOPHILS % (AUTO) 0.4 %; EOSINOPHILS # (AUTO) 0.1 10^3/uL (0.0-0.7); EOSINOPHILS % (AUTO) 1.9 %; HGB - HEMOGLOBIN 12.8 g/dL (12.0-16.0); LYMPHOCYTES # (AUTO) 1.2 10^3/uL (1.5-3.5); LYMPHOCYTES % (AUTO) 19.3 %; MEAN CORPUSCULAR HEMOGLOBIN 29.7 pg (27.0-31.0); MEAN CORPUSCULAR HGB CONC 33.3 g/dL (32.0-36.0); MEAN CORPUSCULAR VOLUME 89.1 fL (81.0-99.0); MEAN PLATELET VOLUME 8.2 fL (7.9-10.8); MONOCYTES # (AUTO) 0.8 10^3/uL (0.0-1.0); MONOCYTES % (AUTO) 13.4 %; NEUTROPHILS # (AUTO) 3.9 10^3/uL (1.5-6.6); PLT - PLATELET COUNT 295 10^3/uL (130-450); RED BLOOD COUNT 4.29 10^6/uL (4.20-5.40); RED CELL DISTRIBUTION WIDTH 12.9 % (12.0-15.0)
[2018-02-11 13:30] LABS: CALCIUM 8.8 mg/dL (8.5-10.3); CREATININE 0.8 mg/dL (0.4-1.0)
== END 2018-02-11 23:59 | disposition home or self-care (01) ==
LOC: LAB.WCP 08:00
PROVIDERS: ATTEND Family Medicine
DX: E87.6 Hypokalemia (principal); K62.9 Disease of anus and rectum, unspecified; D64.9 Anemia, unspecified
CPT/HCPCS: 36415; 80048; 85025

== ENCOUNTER 2018-03-04 06:15 | Day surgery (SDC) | payer MEDICARE ==
[2018-03-04] MEDS ORDERED: LACTATED RINGERS 1,000 ML IV ONE (06:35)
[2018-03-04] MEDS ORDERED: SIMETHICONE 40 MG/0.6 ML 30 ML BOTTLE ONE (07:10)
[2018-03-04] MEDS ORDERED: MIDAZOLAM 2 MG/2 ML VIAL IVP ONE (07:30)
[2018-03-04] MEDS ORDERED: fentaNYL 250 MCG/5 ML VIAL IVP ONE (07:30)
[2018-03-04] MEDS ORDERED: PROPOFOL 200 MG/20 ML VIAL IVP ONE (08:00)
[2018-03-04 08:51] VITALS: BP 94/56
== END 2018-03-04 06:16 | disposition home or self-care (01) ==
LOC: SDS 06:15
PROVIDERS: ATTEND Surgery
PROC: 0DBE8ZX Excision of Large Intestine, Via Natural or Artificial Opening Endoscopic, Diagnostic (ICD-10-PCS; 2018-03-04)
PROC: 0DBP8ZX Excision of Rectum, Via Natural or Artificial Opening Endoscopic, Diagnostic (ICD-10-PCS; principal; 2018-03-04 07:30)
DX: K52.9 Noninfective gastroenteritis and colitis, unspecified (principal); E78.00 Pure hypercholesterolemia, unspecified; K21.9 Gastro-esophageal reflux disease without esophagitis; Z87.891 Personal history of nicotine dependence; R63.0 Anorexia
CPT/HCPCS: 45380; A9270; J3010; J7120; 88305

== ENCOUNTER 2018-04-29 16:48 | Emergency (ER) | payer MEDICARE ==
--- NOTE | 2018-04-29 17:06 | ED Physician Documentation ---
PD HPI Fall - Stated complaint Stated Complaint: GLF - HIT HEAD - Chief complaint Chief Complaint: Cardiac - History obtained from History obtained from: Patient - History of Present Illness Mechanism of injury: Tripped Fall distance: Standing position (lost balance when stood up on uneven ground and fell backward. Struck back of head hard and had some pain left chest. Left chest pain has increased today with rolling over in bed this morning. She has had some headache and slower thoought process the past 2 days.) Timing - onset: How many days ago (2) Injury(ies) location: Head, Chest. No: Neck, Abdomen, Back Quality of pain: Aching, Sharp (left lateral chest) Associated symptoms: AMS. No: LOC, Weakness, Paresthesias, Nausea / vomiting Worsens with: Movement, Palpation, Other (deep breathing) Contributing factors: No: Anticoagulated, Intoxicated Similar symptoms before: Diagnosis (had concussion several years ago) Recently seen: Not recently seen Review of Systems Constitutional: reports: Myalgias (generally sore after the fall.). denies: Fever, Chills Nose: denies: Rhinorrhea / runny nose, Congestion Cardiac: reports: Chest pain / pressure (sharp pain left chest). denies: Palpitations, Pedal edema, Calf pain GI: denies: Abdominal Pain, Nausea, Vomiting Skin: denies: Abrasion (s), Laceration (s) Musculoskeletal: denies: Neck pain, Back pain Neurologic: reports: Altered mental status (slower thinkging/process the past 2 days), Headache, Head injury PD PAST MEDICAL HISTORY - Past Medical History Cardiovascular: High cholesterol Respiratory: None Neuro: None Endocrine/Autoimmune: HyPOthyroidism GI: GI bleed, Ulcerative colitis QUALITY IMPROVEMENT COORDINATOR: None : None HEENT: Chronic hearing loss Psych: None Musculoskeletal: Rheumatoid arthritis Derm: None - Past Surgical History Past Surgical History: Yes General: Colonoscopy, EGD Ortho: Arthroscopic surgery /QUALITY IMPROVEMENT COORDINATOR: section, 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 - Present Medications Home Medications: Ambulatory Orders Medication Instructions Recorded Confirmed Citalopram [CeleXA] 40 mg PO DAILY 03/19/13 03/04/18 LORazepam [Ativan] 1 mg PO BID PRN 03/19/13 03/04/18 Cholecalciferol (Vitamin D3) 2,000 unit PO DAILY 03/31/17 03/04/18 [Vitamin D3] Lactobacillus Acidophilus 1 each PO DAILY 02/05/18 03/04/18 [Probiotic Acidophilus] Omeprazole 40 mg PO BID 02/05/18 03/04/18 Zolpidem Tartrate [Ambien] 10 mg PO QPM PRN 02/05/18 03/04/18 Mesalamine [Delzicol] 800 mg PO TID #90 capsule 02/09/18 03/04/18 Thyroid [Brandon Thyroid] 60 mg PO QDAC #30 tablet 02/09/18 03/04/18 Aspirin 81 mg PO DAILY 03/04/18 03/04/18 Docusate Sodium 100 mg PO DAILY #30 capsule 04/29/18 HYDROcod/ACETAM 5/325 [[place] 5/325] 1 tab PO Q8H PRN #20 tablet 04/29/18 - Allergies Allergies/Adverse Reactions: Allergies Allergy/AdvReac Type Severity Reaction Status Date / Time Sulfa (Sulfonamide Allergy Severe Respiratory Verified 04/29/18 17:00 Antibiotics) amoxicillin AdvReac Nausea Verified 04/29/18 17:00 aripiprazole [From Abilify] AdvReac Unknown Verified 04/29/18 17:00 - Social History Does the pt smoke?: No Smoking Status: Never smoker Does the pt drink ETOH?: No Does the pt have substance abuse?: No - Immunizations Immunizations are current?: Yes - POLST Patient has POLST: Yes POLST Status: Full Code PD ED PE NORMAL - Vitals Vital signs reviewed: Yes - General General: Alert and oriented X 3, No acute distress, Well developed/nourished - HEENT HEENT: PERRL, EOMI, Moist mucous membranes, Pharynx benign, Other (tender without focal swelling occipital part of the head. ) - Neck Neck: Supple, no meningeal sign, No bony TTP, No adenopathy - Cardiac Cardiac: RRR, No murmur - Respiratory Respiratory: Clear bilaterally, Other (left chest wall tenderness mid to lower chestwall without deformity. ) - Abdomen Abdomen: Normal bowel sounds, Soft, Non distended, No organomegaly, Other ( tender LUQ abdomen with local guarding over spleen area. Rest of abdomen not tender. ) - Back Back: No CVA TTP, No spinal TTP - Derm Derm: Normal color, Warm and dry - Extremities Extremities: No deformity, No tenderness to palpate, Normal ROM s pain - Neuro Neuro: Alert and oriented X 3, peoplesoft analyst 2-12 intact, No motor deficit, No sensory deficit, Normal speech Eye Opening: Spontaneous Motor: Obeys Commands Verbal: Oriented GCS Score: 15 Results - Vitals Vitals: Oxygen O2 Source Room air - Labs Labs: Laboratory Tests 04/29/18 04/29/18 04/29/18 17:11 17:11 17:11 WBC 6.9 RBC 4.68 Hgb 14.0 Hct 40.9 MCV 87.4 MCH 30.0 MCHC 34.3 RDW 12.8 Plt Count 297 MPV 8.0 Neut # (Auto) 4.1 Lymph # (Auto) 2.0 Dewey # (Auto) 0.7 Eos # (Auto) 0.0 Baso # (Auto) 0.0 Absolute Nucleated RBC 0.00 Nucleated RBC % 0.1 Sodium 134 L Potassium 3.8 Chloride 103 Carbon Dioxide 23 Anion Gap 8.0 BUN 17 Creatinine 0.7 Estimated GFR (MDRD) 83 L Glucose 129 H Calcium 9.3 Total Bilirubin 1.3 H AST 21 ALT 11 Alkaline Phosphatase 62 Troponin I < 0.04 Total Protein 7.8 Albumin 4.5 Globulin 3.3 Albumin/Globulin Ratio 1.4 Lipase 34 - Rads (name of study) head CT Radiology: Prelim report reviewed (no acute process), EMP read contemporaneously chest/abd CT Radiology: Prelim report reviewed (buckle fracture 5th rib laterally. No lung/ abd organ injury seen. ) PD MEDICAL DECISION MAKING - ED course Complexity details: reviewed results, considered differential (concussive symptoms with slower thinking and some headache since the injury. Head CT done and is okay. She has pain left chest and is tender LUQ as well, so got CT for concern of organ injury as well as ribs. No organ injury. 5th rib fracture identified. ), d/w patient, d/w family (spouse) - Sepsis Event Vital Signs: Oxygen O2 Source Room air Departure - Departure Disposition: 01 Home, Self Care Clinical Impression: Fall from slip, trip, or stumble Qualifiers: Encounter type: initial encounter Qualified Code(s): W01.0XXA - Fall on same level from slipping, tripping and stumbling without subsequent striking against object, initial encounter Mild concussion Qualifiers: Encounter type: initial encounter Loss of consciousness presence/duration: without LOC Qualified Code(s): S06.0X0A - Concussion without loss of consciousness, initial encounter Contusion of head Qualifiers: Encounter type: initial encounter Contusion of head detail: scalp Qualified Code(s): S00.03XA - Contusion of scalp, initial encounter Chest wall contusion Qualifiers: Encounter type: initial encounter Laterality: left Qualified Code(s): S20.212A - Contusion of left front wall of thorax, initial encounter Rib fracture Qualifiers: Encounter type: initial encounter Rib fracture type: single rib Fracture type: closed Laterality: left Qualified Code(s): S22.32XA - Fracture of one rib, left side, initial encounter for closed fracture Condition: Stable Record reviewed to determine appropriate education?: Yes Instructions: ED Concussion, ED Fx Rib Follow-Up: Leanne Flores DO [Primary Care Provider] - Prescriptions: Docusate Sodium 100 mg PO DAILY #30 capsule HYDROcod/ACETAM 5/325 [[place] 5/325] 1 tab PO Q8H PRN #20 tablet PRN Reason: Pain Comments: Usual medications. Add Tylenol 650 mg 3 times a day for pain. To this add hydrocodone if needed for worse pain. Use docusate stool softener daily to reduce the chance of constipation. Activity as able. The head injury symptoms should improve over the next several days to a week. The chest pain from the rib will improve over several weeks but take a month or so to fully recover. Discharge Date/Time: 04/29/18 19:50
[2018-04-29] MEDS ORDERED: SODIUM CHLORIDE 0.9% 1,000 ML IV ONE (17:32)
[2018-04-29] MEDS ORDERED: KETOROLAC 60 MG/2 ML VIAL IVP STA (17:32)
[2018-04-29] MEDS ORDERED: MORPHINE 10 MG/ML VIAL IVP STA (17:36)
[2018-04-29] MEDS ORDERED: IOPAMIDOL-300 100 ML VIAL ONE (17:38)
[2018-04-29 17:41] LABS: BASOPHILS % (AUTO) 0.3 %; EOSINOPHILS % (AUTO) 0.7 %; LYMPHOCYTES % (AUTO) 29.4 %; MEAN CORPUSCULAR HGB CONC 34.3 g/dL (32.0-36.0); MEAN CORPUSCULAR VOLUME 87.4 fL (81.0-99.0); MONOCYTES # (AUTO) 0.7 10^3/uL (0.0-1.0); MONOCYTES % (AUTO) 9.9 %; NEUTROPHILS # (AUTO) 4.1 10^3/uL (1.5-6.6); NEUTROPHILS % (AUTO) 59.7 %; PLT - PLATELET COUNT 297 10^3/uL (130-450); RED BLOOD COUNT 4.68 10^6/uL (4.20-5.40); RED CELL DISTRIBUTION WIDTH 12.8 % (12.0-15.0); WHITE BLOOD COUNT 6.9 x10^3/uL (4.8-10.8)
[2018-04-29 17:54] LABS: ALBUMIN 4.5 g/dL (3.2-5.5); ALBUMIN/GLOBULIN RATIO 1.4 (1.0-2.2); BILIRUBIN,TOTAL 1.3 mg/dL (0.2-1.0); CALCIUM 9.3 mg/dL (8.5-10.3); CREATININE 0.7 mg/dL (0.4-1.0); TOTAL PROTEIN 7.8 g/dL (6.7-8.2)
[2018-04-29] MEDS ORDERED: IOPAMIDOL-300 100 ML VIAL IVP ONE (18:33)
--- NOTE | 2018-04-29 18:44 | CT Report ---
Procedure Date: 04/29/2018 Accession Number: [id number] / [id number] Procedure: CT - Head W/O CPT Code: FULL RESULT: EXAM: CT HEAD EXAM DATE: 04/29/2018 06:07 PM. CLINICAL HISTORY: Fell, hit head, 2 days ago; feeling headache /confused. COMPARISON: None. TECHNIQUE: Multiaxial CT images were obtained from the foramen magnum to the vertex. Reformats: Coronal. IV contrast: None. In accordance with CT protocol optimization, one or more of the following dose reduction techniques were utilized for this exam: automated exposure control, adjustment of mA and/or KV based on patient size, or use of iterative reconstructive technique. FINDINGS: Parenchyma: No intraparenchymal hemorrhage. No evidence of mass, midline shift, or CT findings of infarction. Pantoja-white differentiation is distinct. Extraaxial Spaces: Normal for age. No subdural or epidural collections identified. Ventricles: Normal in size and position. Sinuses and Orbits: Imaged paranasal sinuses, orbits, and mastoids show no significant abnormality. Bones: No evidence of fracture or calvarial defect. IMPRESSION: Normal head CT. RADIA
--- NOTE | 2018-04-29 19:04 | CT Report ---
Procedure Date: 04/29/2018 Accession Number: [id number] / [id number] Procedure: CT - Chest W/ CPT Code: FULL RESULT: EXAM: CT CHEST EXAM DATE: 04/29/2018 06:12 PM. CLINICAL HISTORY: Fell 2 days ago; pain left chest/ribs since yest. COMPARISONS: None. TECHNIQUE: Routine helical CT imaging was performed through the chest. IV contrast: 100 cc Isovue-300. Reconstructions: Coronal and sagittal. In accordance with CT protocol optimization, one or more of the following dose reduction techniques were utilized for this exam: automated exposure control, adjustment of mA and/or KV based on patient size, or use of iterative reconstructive technique. FINDINGS: Lungs/Pleura: No suspicious nodularity, mass, or consolidation. Highly likely benign 2 mm nodule at the right apex. No pleural effusions. No endobronchial or endotracheal lesion. Mediastinum: Imaged portions of the thyroid are grossly unremarkable. Thoracic aorta and main pulmonary artery are normal caliber.No central PE. Heart size is within normal limits. No pericardial effusion. Lymph Nodes: No mediastinal, hilar, or axillary adenopathy. Bones: Buckle fracture of the left fifth rib anteriorly. Visualized chest wall is grossly unremarkable. IMPRESSION: Buckle fracture of the left fifth rib. Otherwise no acute intrathoracic abnormalities. RADIA
--- NOTE | 2018-04-29 19:04 | CT Report ---
Procedure Date: 04/29/2018 Accession Number: [id number] / [id number] Procedure: CT - Abdomen/Pelvis W/ CPT Code: FULL RESULT: EXAM: CT ABDOMEN AND PELVIS EXAM DATE: 04/29/2018 06:22 PM. CLINICAL HISTORY: Fell 2 days ago; pain left chest/LUQ abd today. COMPARISONS: 02/05/18. TECHNIQUE: Routine helical CT imaging was performed through the abdomen and pelvis. IV contrast: 100 ML ISOVUE 300. Enteric contrast: No. Reconstructions: Coronal and sagittal. In accordance with CT protocol optimization, one or more of the following dose reduction techniques were utilized for this exam: automated exposure control, adjustment of mA and/or KV based on patient size, or use of iterative reconstructive technique. FINDINGS: ABDOMEN: Lung Bases: Incompletely included lower lungs are grossly clear. Heart size is within normal limits. No basilar effusions. Liver: Unremarkable. Spleen: Unremarkable. Pancreas: Unremarkable. Gallbladder/Bile Ducts: Layering gallstones are present. Gallbladder otherwise unremarkable. Common bile duct measures 7 mm as before. Adrenal Glands: Unremarkable. Kidneys: No mass, calculi, or hydronephrosis. Peritoneum/Mesentery/Bowel: No free fluid, free air, or collection. No intestinal obstruction or inflammation. The appendix is within normal limits. Lymph nodes: No mesenteric, periportal, or retroperitoneal lymphadenopathy. Vasculature: Abdominal aorta is nonaneurysmal. Portal vein is patent. Hepatic veins are patent. PELVIS: The bladder is unremarkable for the degree of distention. Uterus is absent. No pelvic lymphadenopathy. Bones: No suspicious osseous lesions. IMPRESSION: No acute traumatic abnormalities. Cholelithiasis. RADIA
[2018-04-29] MEDS ORDERED: HYDROcod/ACETAM 5/325 MG TABLET PO STA (19:37)
[2018-04-29 19:44] VITALS: BP 126/79
== END 2018-04-29 19:50 | disposition home or self-care (01) ==
LOC: ED 16:48
DX: S06.0X0A Concussion without loss of consciousness, initial encounter (principal); S00.03XA Contusion of scalp, initial encounter; S20.212A Contusion of left front wall of thorax, initial encounter; S22.32XA Fracture of one rib, left side, initial encounter for closed fracture; W18.39XA Other fall on same level, initial encounter; Y93.89 Activity, other specified
CPT/HCPCS: 36415; 70450; 71260; 74177; 80053; 83690; 84484; 85025; 93005; 96361; 96374; 96375; 99283; 99284; A9270; Q9967

== ENCOUNTER 2018-05-20 13:16 | Outpatient (CLI) | payer MEDICARE ==
[2018-05-20 13:57] LABS: THYROID STIMULATING HORMONE 0.96 uIU/mL (0.34-5.60)
[2018-05-20 13:59] LABS: FREE T4 (FREE THYROXINE) 1.52 ng/dL (0.58-1.64)
== END 2018-05-20 13:17 | disposition home or self-care (01) ==
LOC: LAB 13:16
PROVIDERS: ATTEND Family Medicine
DX: E03.9 Hypothyroidism, unspecified (principal)
CPT/HCPCS: 36415; 84439; 84443; 84481

== ENCOUNTER 2018-06-09 09:00 | Outpatient (CLI) | payer MEDICARE | END 2018-06-09 09:01 | disposition home or self-care (01) | LOC: LAB.R 09:00 | PROVIDERS: ATTEND Family Medicine | DX: K52.9 Noninfective gastroenteritis and colitis, unspecified (principal) | CPT/HCPCS: 87493 ==

== ENCOUNTER 2018-06-09 12:40 | Outpatient (CLI) | payer MEDICARE ==
[2018-06-09 13:11] LABS: BASOPHILS % (AUTO) 0.4 %; EOSINOPHILS # (AUTO) 0.1 10^3/uL (0.0-0.7); EOSINOPHILS % (AUTO) 0.6 %; HGB - HEMOGLOBIN 13.8 g/dL (12.0-16.0); LYMPHOCYTES # (AUTO) 1.4 10^3/uL (1.5-3.5); LYMPHOCYTES % (AUTO) 15.6 %; MEAN CORPUSCULAR HEMOGLOBIN 30.3 pg (27.0-31.0); MEAN CORPUSCULAR HGB CONC 35.1 g/dL (32.0-36.0); MEAN CORPUSCULAR VOLUME 86.4 fL (81.0-99.0); MEAN PLATELET VOLUME 7.5 fL (7.9-10.8); MONOCYTES # (AUTO) 0.8 10^3/uL (0.0-1.0); MONOCYTES % (AUTO) 8.9 %; NEUTROPHILS # (AUTO) 6.5 10^3/uL (1.5-6.6); NEUTROPHILS % (AUTO) 74.5 %; PLT - PLATELET COUNT 253 10^3/uL (130-450); RED BLOOD COUNT 4.56 10^6/uL (4.20-5.40); RED CELL DISTRIBUTION WIDTH 13.1 % (12.0-15.0); WHITE BLOOD COUNT 8.7 x10^3/uL (4.8-10.8)
[2018-06-09 13:52] LABS: ALBUMIN 4.2 g/dL (3.2-5.5); ALBUMIN/GLOBULIN RATIO 1.2 (1.0-2.2); BILIRUBIN,TOTAL 1.8 mg/dL (0.2-1.0); CALCIUM 9.2 mg/dL (8.5-10.3); CREATININE 0.8 mg/dL (0.4-1.0); TOTAL PROTEIN 7.6 g/dL (6.7-8.2)
== END 2018-06-09 12:41 | disposition home or self-care (01) ==
LOC: LAB 12:40
PROVIDERS: ATTEND Family Medicine
DX: K52.9 Noninfective gastroenteritis and colitis, unspecified (principal)
CPT/HCPCS: 36415; 80053; 85025; 87493

== ENCOUNTER 2018-08-03 13:32 | Outpatient (CLI) | payer MEDICARE ==
--- NOTE | 2018-08-05 11:57 | Mammography Report ---
Reason: SCREENING MAMMO Procedure Date: 08/03/2018 Accession Number: [id number] / [id number] Procedure: [facility] - Screening Mammo w/Carmelo CPT Code: FULL RESULT: EXAM: Screening Mammo w/Carmelo DATE: 08/03/2018 2:14 PM CLINICAL HISTORY: Routine screening. No reported personal or family history of breast cancer. TECHNIQUE: Bilateral CC and MLO views were obtained. COMPARISON: 08/24/2016 through 09/23/2009 FINDINGS: The breasts demonstrate extremely dense parenchyma bilaterally, limiting the sensitivity of mammography. There are no suspicious masses, calcifications or areas of distortion. IMPRESSION: Negative examination RECOMMENDATION: Routine annual screening unless otherwise clinically indicated. BI-RADS CATEGORY 1: Negative STANDARD QUALIFYING STATEMENTS: 1. This examination was not reviewed with the aid of Computer-Aided Detection (CAD). 2. A negative or benign imaging report should not preclude biopsy if clinically suspicious findings are present. 3. Dense breasts may obscure an underlying neoplasm. 4. This examination was reviewed with the aid of 3D breast imaging (tomosynthesis).
== END 2018-08-03 13:33 | disposition home or self-care (01) ==
LOC: DI 13:32
DX: Z12.31 Encounter for screening mammogram for malignant neoplasm of breast (principal)
CPT/HCPCS: 77063; 77067

== ENCOUNTER 2018-09-15 08:42 | Outpatient (CLI) | payer MEDICARE ==
--- NOTE | 2018-09-17 03:50 | Ultrasound Report ---
Reason: GENERALIZED ABDOMINAL PAIN,INTESTINAL METAPLASIA O Procedure Date: 09/15/2018 Accession Number: [id number] / [id number] Procedure: US - Arterial Visceral Complete CPT Code: FULL RESULT: EXAM: MESENTERIC/CELIAC ARTERY DOPPLER ULTRASOUND EXAM DATE: 09/15/2018 09:33 AM. CLINICAL HISTORY: Generalized abdominal pain, intestinal metaplasia. COMPARISON: None. TECHNIQUE: Real-time sonographic vascular imaging was performed by the orthodontic assistant through the mesenteric arterial system with a linear transducer utilizing color-flow, Doppler flow and spectral analysis. Multiple marketing development representative static images were saved for review. FINDINGS: Velocities in the celiac and superior mesenteric arteries are normal. There is elevated velocity in the inferior mesenteric artery, worst at the origin, suggestive of origin stenosis. Aorta: 74 cm/sec. Celiac [place]: Origin: 139 cm/sec. Proximal: 170 cm/sec. Mid: 174 cm/sec. Distal: 194 cm/sec. Hepatic Artery: 138 cm/sec. Splenic Artery: 129 cm/sec. Superior Mesenteric Artery Origin: 151 cm/sec. Proximal: 253 cm/sec. Mid: 219 cm/sec. Distal: 201 cm/sec. Inferior Mesenteric Artery: Origin: 283 cm/sec. Proximal: 179 cm/sec. Mid: 164 cm/sec. Distal: 106 cm/sec. 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 The celiac and superior mesenteric arteries demonstrate normal velocities. RADIA
== END 2018-09-15 08:43 | disposition home or self-care (01) ==
LOC: DI 08:42
PROVIDERS: ATTEND Internal Medicine Gastroenterology
DX: K31.89 Other diseases of stomach and duodenum (principal); R10.84 Generalized abdominal pain
CPT/HCPCS: 93975

== ENCOUNTER 2018-12-11 15:07 | Outpatient (CLI) | payer MEDICARE | END 2018-12-11 15:08 | disposition critical access hospital (66) | LOC: EMS 15:07 | PROVIDERS: ATTEND Surgery | DX: R51 Headache (principal); M54.2 Cervicalgia; M25.561 Pain in right knee; R53.1 Weakness; R11.0 Nausea; R55 Syncope and collapse; W18.09XA Striking against other object with subsequent fall, initial encounter; Y93.79 Activity, other specified sports and athletics; Y92.39 Other specified sports and athletic area as the place of occurrence of the external cause | CPT/HCPCS: A0425; A0427 ==

== ENCOUNTER 2018-12-11 15:31 | Emergency (ER) | payer MEDICARE ==
--- NOTE | 2018-12-11 15:37 | ED Physician Documentation ---
History of Present Illness - Stated complaint Stated Complaint: FALL - History obtained from History obtained from: Patient, Family, EMS - History of Present Illness Timing: Prior to arrival Pain level max: 5 - Additonal information Additional information: Patient is a relatively healthy 68-year-old female presenting via EMS after witnessed fall while tripping and episode of syncope thereafter. EMS, , and patient reports that she has been feeling well until her fall today. No history of new symptoms such as fever, chest pain, lightheadedness or dizziness, respiratory complaints, vomiting, diarrhea, or other issues. Patient also denies symptoms preceding fall. Patient reports that she excellently tripped on a mat while going to the bathroom and struck her right knee as well as her right head. Patient did not lose consciousness at this time. EMS was called and assistance provided and while patient was walking to the ambulance, patient had a witnessed collapse that included loss of consciousness and quite quickly regained consciousness without injury or further fall.Currently, patient reports right head and facial pain, but denies midline neck pain, back pain, chest pain, abdominal pain, rib pain, or extremity pain.Patient also denies vision changes, nosebleed, oral trauma, abrasions, lacerations, or bruising.Patient does report she was feeling nauseous but not vomiting earlier and receive Zofran in route, which has alleviated her symptoms.No other particular improving or worsening factors to her symptoms. is present in ED and reports that she has otherwise returned to her baseline at this time. Review of Systems Ten Systems: 10 systems reviewed and negative Constitutional: denies: Fever Eyes: denies: Reviewed and negative Throat: denies: Reviewed and negative Cardiac: denies: Chest pain / pressure Respiratory: denies: Dyspnea GI: denies: Abdominal Pain : denies: Dysuria Skin: denies: Lesions, Abrasion (s), Laceration (s) Musculoskeletal: denies: Neck pain, Back pain, Extremity pain Neurologic: reports: Syncope, Headache, Head injury, LOC PD PAST MEDICAL HISTORY - Past Medical History Cardiovascular: High cholesterol Respiratory: None Neuro: None Endocrine/Autoimmune: HyPOthyroidism GI: GI bleed, Ulcerative colitis VALIDATION INTERN: None : None HEENT: Chronic hearing loss Psych: None Musculoskeletal: Rheumatoid arthritis Derm: None - Past Surgical History Past Surgical History: Yes General: Colonoscopy, EGD Ortho: Arthroscopic surgery /VALIDATION INTERN: section, 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 - Present Medications Home Medications: Ambulatory Orders Medication Instructions Recorded Confirmed Citalopram [CeleXA] 40 mg PO DAILY 03/19/13 03/04/18 LORazepam [Ativan] 1 mg PO BID PRN 03/19/13 03/04/18 Cholecalciferol (Vitamin D3) 2,000 unit PO DAILY 03/31/17 03/04/18 [Vitamin D3] Lactobacillus Acidophilus 1 each PO DAILY 02/05/18 03/04/18 [Probiotic Acidophilus] Omeprazole 40 mg PO BID 02/05/18 03/04/18 Zolpidem Tartrate [Ambien] 10 mg PO QPM PRN 02/05/18 03/04/18 Mesalamine [Delzicol] 800 mg PO TID #90 capsule 02/09/18 03/04/18 Thyroid [[place] Thyroid] 60 mg PO QDAC #30 tablet 02/09/18 03/04/18 Aspirin 81 mg PO DAILY 03/04/18 03/04/18 Docusate Sodium 100 mg PO DAILY #30 capsule 04/29/18 HYDROcod/ACETAM 5/325 [[place]buck 5/325] 1 tab PO Q8H PRN #20 tablet 04/29/18 - Allergies Allergies/Adverse Reactions: Allergies Allergy/AdvReac Type Severity Reaction Status Date / Time Sulfa (Sulfonamide Allergy Severe Respiratory Verified 12/11/18 15:40 Antibiotics) amoxicillin AdvReac Nausea Verified 12/11/18 15:40 aripiprazole [From Abilify] AdvReac Unknown Verified 12/11/18 15:40 - Social History Does the pt smoke?: No Smoking Status: Never smoker Does the pt drink ETOH?: No Does the pt have substance abuse?: No - Immunizations Immunizations are current?: Yes - POLST Patient has POLST: Yes POLST Status: Full Code PD ED PE NORMAL - General General: No acute distress, Well developed/nourished, Other (slightly dazed) - HEENT HEENT: Other (Atraumatic with exception of subjectiveNo other contusions, overlying right cheondoism with no bruising, lacerations, abrasions, swelling, or erythema noted. Epistaxis, vision changes, Or evidence of intraoral trauma n oted) - Neck Neck: No bony TTP, Other (Mild bilateral paraspinal muscle tenderness) - Cardiac Cardiac: RRR, No murmur - Respiratory Respiratory: No respiratory distress, Clear bilaterally - Abdomen Abdomen: Soft, Non tender, Non distended - Back Back: No CVA TTP, No spinal TTP - Derm Derm: Normal color, Warm and dry, No rash - Extremities Extremities: No deformity, No tenderness to palpate, Other (No reproducible pain over right knee, no swelling, no overlying skin changes and otherwise full range of motion to right knee in all extremities.) - Neuro Neuro: Alert and oriented X 3, No motor deficit, No sensory deficit - Psych Psych: Normal mood, Normal affect Results - Vitals Vitals: Vital Signs - 24 hr 12/11/18 15:35 Temperature 36.1 C L Heart Rate 58 L Respiratory 14 Rate Blood Pressure 139/78 H O2 Saturation 100 Oxygen O2 Source Room air PD MEDICAL DECISION MAKING - ED course Complexity details: reviewed results, re-evaluated patient, considered differential, d/w patient, d/w family ED course: Patient had a witnessed fall and then mild syncopal episode with loss of consciousness, although no injury and presence of EMS and . Patient arrives slightly dazed to the ED and to have concern for concussive syndrome. Patient complained only of right facial pain and headache. Patient did fall on her right knee, but showed no evidence of trauma to that area and had no complaints. Otherwise, I do not find evidence of other facial or head trauma, spinal or spinal cord trauma, rib or chest trauma, intra-abdominal trauma, or other concerns. Patient also denied complaints of raise suspicion for neurological, cardiac, infectious, otherwise pathology as source of syncopal episode. Feel this is likely related to striking of head and vasovagal response as she stood up and started walking immediately after having fallen. Vital signs within normal limits upon arrival. Patient continued to be monitored without issue. She did request pain medication and after all imaging return unremarkable, felt Toradol was appropriate. As stated, no evidence of intracranial bleed, fracture, or other issue found on CT imaging. Discussed imaging results, as well as likely concussion with patient and . Also discussed strict return precautions, close follow-up, and other supportive cares at home. Feel the patient is safe to discharge home with her . All agree and are comfortable with plan. Departure - Departure Disposition: 01 Home, Self Care Clinical Impression: Concussion Qualifiers: Encounter type: initial encounter Loss of consciousness presence/duration: with LOC of unspecified duration Qualified Code(s): S06.0X9A - Concussion with loss of consciousness of unspecified duration, initial encounter Condition: Good Instructions: Concussion Follow-Up: Leanne Flores DO [Primary Care Provider] - Within 3 Days Comments: Please continue home medications as previously instructed. May use ibuprofen/Tylenol for headache and other pains related to your fall. Please be aware of possible concussive syndrome symptoms that may continue over the next several days and return to ED if you experience severe headache, loss of consciousness, difficulty with walking, repeated vomiting, or other concerns. Otherwise, please follow-up with your primary care physician in next 2-3 days for reevaluation and approval to return to full activities.
--- NOTE | 2018-12-11 17:08 | CT Report ---
Reason: fall with LOC Procedure Date: 12/11/2018 Accession Number: [id number] / [id number] Procedure: CT - HEAD WO CPT Code: FULL RESULT: EXAM: CT HEAD EXAM DATE: 12/11/2018 04:43 PM. CLINICAL HISTORY: Fall with loss of consciousness. Fall hit right lateral orbital area. COMPARISON: HEAD W/O 04/29/2018 6:07 PM. TECHNIQUE: Multiaxial CT images were obtained from the foramen magnum to the vertex. Reformats: Sagittal and coronal. IV contrast: None. In accordance with CT protocol optimization, one or more of the following dose reduction techniques were utilized for this exam: automated exposure control, adjustment of mA and/or KV based on patient size, or use of iterative reconstructive technique. FINDINGS: Parenchyma: No mass-effect or midline shift. No evidence for edema. No intracranial hemorrhage. Extraaxial Spaces: Normal for age. No subdural or epidural collections identified. Ventricles: The ventricles and cortical sulci are prominent, consistent with mild age-related tissue loss. Visualized mastoid air cells appear clear. Bones: No evidence of fracture or calvarial defect. IMPRESSION: Generalized mild age-related cortical atrophic changes without evidence of acute intracranial abnormality. RADIA
--- NOTE | 2018-12-11 17:16 | CT Report ---
Reason: fall with LOC Procedure Date: 12/11/2018 Accession Number: [id number] / [id number] Procedure: CT - MAXILLOFACIAL WO CPT Code: FULL RESULT: EXAM: CT MAXILLOFACIAL WITHOUT CONTRAST EXAM DATE: 12/11/2018 04:48 PM. CLINICAL HISTORY: Fall with loss of consciousness. Hit right lateral orbital area. COMPARISONS: HEAD W/O 04/29/2018 6:07 PM HEAD W/O 12/11/2018 4:26 PM. TECHNIQUE: Thin-section axial images were acquired of the face without contrast. Post-processing: Coronal and sagittal reformats. Other: None. In accordance with CT protocol optimization, one or more of the following dose reduction techniques were utilized for this exam: automated exposure control, adjustment of mA and/or KV based on patient size, or use of iterative reconstructive technique. FINDINGS: Orbits: No orbital hematoma or gas. The bilateral eye globes appear intact. There appears to be a mild amount of right inferior preorbital soft tissue contusion. Bones: No evidence for acute fracture. Sinuses: No significant mucosal thickening. No air-fluid levels. Visualized portions of the mastoid air cells appear clear. Bilateral temporomandibular joints appear in normal alignment. Mild bilateral temporomandibular degenerative joint disease. IMPRESSION: 1. No evidence for acute fracture. 2.No orbital hematoma or gas. The bilateral eye globes appear intact. There appears to be a mild amount of right inferior preorbital soft tissue contusion. RADIA
--- NOTE | 2018-12-11 17:25 | CT Report ---
Reason: fall with LOC Procedure Date: 12/11/2018 Accession Number: [id number] / [id number] Procedure: CT - CERVICAL SPINE WO CPT Code: FULL RESULT: EXAM: CT CERVICAL SPINE WITHOUT CONTRAST DATE: 12/11/2018 04:50 PM. HISTORY: Fall with loss of consciousness. COMPARISONS: HEAD W/O 04/29/2018 6:07 PM XR CERVICAL SPINE 2 OR 3 VIEWS 07/29/2011 3:06 PM. TECHNIQUE: Thin-section axial images were acquired of the cervical spine without contrast. Post-processing: Coronal and sagittal reformats. Other: None. In accordance with CT protocol optimization, one or more of the following dose reduction techniques were utilized for this exam: automated exposure control, adjustment of mA and/or KV based on patient size, or use of iterative reconstructive technique. FINDINGS: Minimal anterolisthesis at C4-C5 and C5-C6, could be degenerative, similar to the prior. Marked atlantoaxial degenerative change. Mild to moderate C2-C3 degenerative disk disease with fused posterior osteophytes. Right C2-C3 facet joint fusion. Mild to moderate left C2-C3 facet arthropathy. Moderate to severe bilateral facet arthropathy at C3-C4 and C4-C5. Mild to moderate C5-C6 facet arthropathy, right greater than left. Moderate right C7-T1 facet arthropathy. Mild to moderate C6-C7 and mild C6-C7 degenerative disk disease. Mild left C3-C4 uncovertebral osteophyte. No evidence for acute fracture. No acute soft tissue findings are seen. IMPRESSION: 1. No evidence for acute fracture. 2. Degenerative changes. See above. RADIA
[2018-12-11] MEDS: KETOROLAC 30 MG/ML VIAL IVP STA (17:47)
[2018-12-11 17:54] VITALS: BP 113/62
== END 2018-12-11 18:15 | disposition home or self-care (01) ==
LOC: EDUNIT# → ED 15:31
DX: S06.0X9A Concussion with loss of consciousness of unspecified duration, initial encounter (principal); W01.10XA Fall on same level from slipping, tripping and stumbling with subsequent striking against unspecified object, initial encounter; Y92.39 Other specified sports and athletic area as the place of occurrence of the external cause; R55 Syncope and collapse; E03.9 Hypothyroidism, unspecified; E78.00 Pure hypercholesterolemia, unspecified; Z79.82 Long term (current) use of aspirin
CPT/HCPCS: 70450; 70486; 72125; 96374; 99283

== ENCOUNTER 2018-12-12 11:10 | Emergency (ER) | payer MEDICARE | END 2018-12-12 11:52 | disposition left against medical advice (07) | LOC: ED 11:10 | DX: Z53.21 Procedure and treatment not carried out due to patient leaving prior to being seen by health care provider (principal) ==

== ENCOUNTER 2019-05-31 08:00 | Outpatient (CLI) | payer MEDICARE ==
[2019-05-31 18:54] LABS: BASOPHILS % (AUTO) 0.3 %; EOSINOPHILS # (AUTO) 0.1 10^3/uL (0.0-0.7); HGB - HEMOGLOBIN 13.7 g/dL (12.0-16.0); LYMPHOCYTES # (AUTO) 1.9 10^3/uL (1.5-3.5); LYMPHOCYTES % (AUTO) 28.2 %; MEAN CORPUSCULAR HEMOGLOBIN 29.3 pg (27.0-31.0); MEAN CORPUSCULAR HGB CONC 32.7 g/dL (32.0-36.0); MEAN CORPUSCULAR VOLUME 89.7 fL (81.0-99.0); MEAN PLATELET VOLUME 10.1 fL (7.9-10.8); MONOCYTES # (AUTO) 0.6 10^3/uL (0.0-1.0); MONOCYTES % (AUTO) 8.8 %; NEUTROPHILS # (AUTO) 4.1 10^3/uL (1.5-6.6); NEUTROPHILS % (AUTO) 61.4 %; PLT - PLATELET COUNT 296 10^3/uL (130-450); RED BLOOD COUNT 4.67 10^6/uL (4.20-5.40); RED CELL DISTRIBUTION WIDTH 12.3 % (12.0-15.0); WHITE BLOOD COUNT 6.7 x10^3/uL (4.8-10.8)
[2019-05-31 19:15] LABS: ALBUMIN 4.2 g/dL (3.2-5.5); ALBUMIN/GLOBULIN RATIO 1.1 (1.0-2.2); ALKALINE PHOSPHATASE 76 IU/L (42-121); ALT ALANINE AMINOTRANSFERASE 20 IU/L (10-60); AST ASPARTATE AMINOTRANSFERASE 28 IU/L (10-42); BILIRUBIN,TOTAL 1.2 mg/dL (0.2-1.0); BUN - BLOOD UREA NITROGEN 20 mg/dL (6-20); CALCIUM 9.2 mg/dL (8.5-10.3); CARBON DIOXIDE - CO2 26 mmol/L (21-32); CHLORIDE 103 mmol/L (101-111); CHOL/HDL RATIO 4.6 (<4.4); CHOLESTEROL 273 mg/dL; CREATININE 0.7 mg/dL (0.4-1.0); GFR - MDRD 83 (>89); GLUCOSE 97 mg/dL (70-100); HDL CHOLESTEROL 59 mg/dL; LDL CHOLESTEROL,CALCULATED 194 mg/dL; LDL/HDL RATIO 3.3 (<4.4); SODIUM 138 mmol/L (135-145); TOTAL PROTEIN 7.9 g/dL (6.7-8.2); VLDL CHOLESTEROL 20 mg/dL
[2019-05-31 19:41] LABS: GLUCOSE, URINE (UA) NEGATIVE (NEGATIVE); KETONES,URINE (UA) TRACE mg/dL (NEGATIVE); LEUKOCYTE ESTERASE, URINE NEGATIVE (NEGATIVE); NITRITE,URINE NEGATIVE (NEGATIVE); OCCULT BLOOD,URINE TRACE-INTA (NEGATIVE); PH,URINE 5.5 PH (5.0-7.5); PROTEIN,URINE NEGATIVE (NEGATIVE); UROBILINOGEN,URINE 0.2 (NORMAL) E.U./dL (NORMAL)
[2019-05-31 19:54] LABS: FREE T4 (FREE THYROXINE) 0.98 ng/dL (0.58-1.64)
[2019-05-31 19:59] LABS: BILIRUBIN,URINE NEGATIVE (NEGATIVE); CLARITY,URINE CLEAR (CLEAR); ICTOTEST,URINE NEGATIVE
[2019-06-01 11:27] LABS: HEPATITIS C ANTIBODY NON-REACTIVE (NON-REACTIVE)
== END 2019-05-31 23:59 | disposition home or self-care (01) ==
LOC: LAB.WCP 08:00
PROVIDERS: ATTEND Family Medicine
DX: M85.80 Other specified disorders of bone density and structure, unspecified site (principal); E78.5 Hyperlipidemia, unspecified; R10.9 Unspecified abdominal pain; E03.9 Hypothyroidism, unspecified; Z11.59 Encounter for screening for other viral diseases
CPT/HCPCS: 36415; 80053; 80061; 81001; 81003; 83721; 84439; 84443; 85025; 86803; 87086

== ENCOUNTER 2019-07-14 21:03 | Emergency (ER) | payer MEDICARE ==
--- NOTE | 2019-07-14 21:16 | ED Physician Documentation ---
History of Present Illness - Stated complaint Stated Complaint: SOA/BELCHING - Chief complaint Chief Complaint: Resp - Additonal information Additional information: This is a 68-year-old female history of rheumatoid arthritis, possible gastr oparesis, hypothyroidism, who presents with 6 weeks of belching and epigastric discomfort. Patient states that she had a cold around 6 weeks ago this lasted for several weeks. Afterwards she began having frequent belching. She states that she will belch for hours at a time. This happened her in the past and it reportedly resolved with time, and with the medication that she got from [facility] because it was not allowed in the [place]. She states that she has seen a co founder and director in the past, and has had an endoscopy, but not for the most recent episode. She has some mild epigastric discomfort which is intermittent, and from time time when she belches she will have brief shortness of breath, she denies chest pain, fever. She is able to eat and drink without issue.No difficulty swallowing. She also has nasal congestion which has been ongoing as well. She reports seeing 4-5 doctors for her issue and not making progress despite trying antibiotics, acid blockers, and anti-histamines. 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 : None HEENT: Chronic hearing loss Psych: None Musculoskeletal: Rheumatoid arthritis Derm: None - Past Surgical History Past Surgical History: Yes General: Colonoscopy, EGD Ortho: Arthroscopic surgery /STRIPPING CUTTER AND WINDER: section, 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 - Present Medications Home Medications: Ambulatory Orders Medication Instructions Recorded Confirmed Citalopram [CeleXA] 40 mg PO DAILY 03/19/13 03/04/18 LORazepam [Ativan] 1 mg PO BID PRN 03/19/13 03/04/18 Cholecalciferol (Vitamin D3) 2,000 unit PO DAILY 03/31/17 03/04/18 [Vitamin D3] Lactobacillus Acidophilus 1 each PO DAILY 02/05/18 03/04/18 [Probiotic Acidophilus] Omeprazole 40 mg PO BID 02/05/18 03/04/18 Zolpidem Tartrate [Ambien] 10 mg PO QPM PRN 02/05/18 03/04/18 Mesalamine [Delzicol] 800 mg PO TID #90 capsule 02/09/18 03/04/18 Thyroid [[place] Thyroid] 60 mg PO QDAC #30 tablet 02/09/18 03/04/18 Aspirin 81 mg PO DAILY 03/04/18 03/04/18 Docusate Sodium 100 mg PO DAILY #30 capsule 04/29/18 HYDROcod/ACETAM 5/325 [[place] 5/325] 1 tab PO Q8H PRN #20 tablet 04/29/18 Metoclopramide [Reglan] 10 mg PO BID PRN #12 tablet 07/15/19 diphenhydrAMINE [Benadryl] 25 mg PO HS PRN #10 capsule 07/15/19 - Allergies Allergies/Adverse Reactions: Allergies Allergy/AdvReac Type Severity Reaction Status Date / Time Sulfa (Sulfonamide Allergy Severe Respiratory Verified 07/14/19 21:06 Antibiotics) amoxicillin AdvReac Nausea Verified 07/14/19 21:06 aripiprazole [From Abilify] AdvReac Unknown Verified 07/14/19 21:06 - Social History Does the pt smoke?: No Smoking Status: Never smoker Does the pt drink ETOH?: No Does the pt have substance abuse?: No - Immunizations Immunizations are current?: Yes - POLST Patient has POLST: Yes POLST Status: Full Code PD ED PE NORMAL - Vitals Vital signs reviewed: Yes - General General: Alert and oriented X 3, No acute distress - HEENT HEENT: Atraumatic, PERRL, Moist mucous membranes, Pharynx benign, Other (No lymphadenopathy or anterior neck tenderness) - Neck Neck: Supple, no meningeal sign - Cardiac Cardiac: RRR - Respiratory Respiratory: Clear bilaterally - Abdomen Abdomen: Normal bowel sounds, Soft, Non tender, Non distended - Derm Derm: Warm and dry - Extremities Extremities: No deformity - Neuro Neuro: Alert and oriented X 3 - Psych Psych: Normal mood, Normal affect Results - Vitals Vitals: Vital Signs - 24 hr 07/14/19 07/14/19 07/14/19 21:06 21:24 23:01 Temperature 36.6 C 36.7 C Heart Rate 60 55 L 60 Respiratory 16 16 17 Rate Blood Pressure 128/75 105/87 H 136/76 H O2 Saturation 98 98 96 07/15/19 00:04 Temperature 36.6 C Heart Rate 51 L Respiratory 18 Rate Blood Pressure 117/74 O2 Saturation 96 Oxygen O2 Source Room air - EKG (time done) 22:38 Other comments: Other comments (Rate 56, rhythm sinus, there is no ST segment elevation or depression. There is T wave flattening in V2.) - Labs Labs: Laboratory Tests 07/14/19 07/14/19 07/14/19 22:43 22:43 22:43 WBC 6.7 RBC 4.26 Hgb 12.7 Hct 37.7 MCV 88.5 MCH 29.8 MCHC 33.7 RDW 12.4 Plt Count 293 MPV 9.4 Neut # (Auto) 3.4 Lymph # (Auto) 2.6 [place] # (Auto) 0.7 Eos # (Auto) 0.1 Baso # (Auto) 0.0 Absolute Nucleated RBC 0.00 Nucleated RBC % 0.0 Sodium 137 Potassium 3.8 Chloride 103 Carbon Dioxide 23 Anion Gap 11.0 BUN 23 H Creatinine 0.7 Estimated GFR (MDRD) 83 L Glucose 105 H Calcium 9.5 Total Bilirubin 1.4 H AST 21 ALT 12 Alkaline Phosphatase 63 Troponin I High Sens Total Protein 7.9 Albumin 4.5 Globulin 3.4 Albumin/Globulin Ratio 1.3 Lipase 35 TSH 9.72 H Free T4 07/14/19 07/14/19 22:43 22:43 WBC RBC Hgb Hct MCV MCH MCHC RDW Plt Count MPV Neut # (Auto) Lymph # (Auto) [place] # (Auto) Eos # (Auto) Baso # (Auto) Absolute Nucleated RBC Nucleated RBC % Sodium Potassium Chloride Carbon Dioxide Anion Gap BUN Creatinine Estimated GFR (MDRD) Glucose Calcium Total Bilirubin AST ALT Alkaline Phosphatase Troponin I High Sens 3.9 Total Protein Albumin Globulin Albumin/Globulin Ratio Lipase TSH Free T4 1.23 - Rads (name of study) CXR Radiology: Other (Stable appearance of chest With no acute cardiopulmonary abnormality) PD MEDICAL DECISION MAKING - ED course Complexity details: considered differential (Gastroparesis, lazara's esophagus, achalasia, sinusitis, allergic rhinitis, dysrhythmia) ED course: Pt is well appearing on exam, EKG without convincing signs of dysrhythmia or ischemia, CXR without acute abnormality. CBC and CMP unremarkable. TSH elevated but FT4 normal. Troponin is negative and ACS highly unlikely to cause her symptoms. She was given reglan because she notes that she was possibly diagnosed with gastroparesis in the past, and her belching did improve with this medication. I discussed that she should follow with her PCP and GI doctor. I prescribed reglan to trial at home. Regarding her sinus drainage, she has a benign exam today without signs of infection, and she has already undergone treatment with antibiotics which was unhelpful. We will try benadryl, she was counseled on the side effects of this medication, that she should use is sparingly, and that she should follow with her PCP on this issue. Return precautions discussed and patient was discharged home. Departure - Departure Disposition: Home, Self Care Clinical Impression: Belching Condition: Good Prescriptions: diphenhydrAMINE [Benadryl] 25 mg PO HS PRN #10 capsule PRN Reason: Allergy Symptoms Metoclopramide [Reglan] 10 mg PO BID PRN #12 tablet PRN Reason: Nausea / Vomiting Comments: You were seen today for repeated belching, your x-ray was unremarkable, your labs are overall reassuring, your thyroid-stimulating hormone was elevated. Please follow-up with your primary care provider on your thyroid level to see if you need changes in your thyroid medication. You may try the Reglan for your symptoms. You may try a dose of benadryl at night for your nasal drip/congestion. If you develop worsening symptoms such as persistent vomiting, severe abdominal pain, please return to the emergency department. Please follow with your primary care provider or co founder and director as soon as possible. Discharge Date/Time: 07/15/19 00:11
[2019-07-14] MEDS ORDERED: METOCLOPRAMIDE 10 MG TABLET PO STA (22:31)
[2019-07-14 22:48] LABS: BASOPHILS % (AUTO) 0.4 %; EOSINOPHILS # (AUTO) 0.1 10^3/uL (0.0-0.7); HGB - HEMOGLOBIN 12.7 g/dL (12.0-16.0); LYMPHOCYTES # (AUTO) 2.6 10^3/uL (1.5-3.5); LYMPHOCYTES % (AUTO) 38.5 %; MEAN CORPUSCULAR HEMOGLOBIN 29.8 pg (27.0-31.0); MEAN CORPUSCULAR HGB CONC 33.7 g/dL (32.0-36.0); MEAN CORPUSCULAR VOLUME 88.5 fL (81.0-99.0); MEAN PLATELET VOLUME 9.4 fL (7.9-10.8); MONOCYTES # (AUTO) 0.7 10^3/uL (0.0-1.0); MONOCYTES % (AUTO) 9.8 %; NEUTROPHILS # (AUTO) 3.4 10^3/uL (1.5-6.6); PLT - PLATELET COUNT 293 10^3/uL (130-450); RED BLOOD COUNT 4.26 10^6/uL (4.20-5.40); RED CELL DISTRIBUTION WIDTH 12.4 % (12.0-15.0); WHITE BLOOD COUNT 6.7 x10^3/uL (4.8-10.8)
[2019-07-14 23:01] LABS: ALBUMIN 4.5 g/dL (3.2-5.5); ALBUMIN/GLOBULIN RATIO 1.3 (1.0-2.2); BILIRUBIN,TOTAL 1.4 mg/dL (0.2-1.0); CALCIUM 9.5 mg/dL (8.5-10.3); CREATININE 0.7 mg/dL (0.4-1.0); TOTAL PROTEIN 7.9 g/dL (6.7-8.2)
--- NOTE | 2019-07-14 23:05 | XRAY Report ---
Reason: cough Procedure Date: 07/14/2019 Accession Number: [id number] / [id number] Procedure: XR - Chest 2 View X-Ray CPT Code: 54040 FULL RESULT: EXAM: CHEST RADIOGRAPHY EXAM DATE: 07/14/2019 10:50 PM. CLINICAL HISTORY: Cough. COMPARISON: CHEST W04/29/2018 6:12 PM 06/11/2015 4:16 PM. TECHNIQUE: 2 views. FINDINGS: Lungs/Pleura: No focal opacities evident. No pleural effusion. No pneumothorax. Normal volumes. Mediastinum: Heart and mediastinal contours are unremarkable. Other: Moderate leonor-diaphragm eventration. IMPRESSION: Stable appearance of the chest without acute cardiopulmonary abnormality. RADIA
[2019-07-15 00:05] VITALS: BP 117/74
== END 2019-07-15 00:11 | disposition home or self-care (01) ==
LOC: ED 21:03
DX: R14.2 Eructation (principal); R10.13 Epigastric pain; R09.81 Nasal congestion; E03.9 Hypothyroidism, unspecified; M06.9 Rheumatoid arthritis, unspecified
CPT/HCPCS: 36415; 71046; 80053; 83690; 84439; 84443; 84484; 85025; 93005; 99283; 99284; A9270

== ENCOUNTER 2019-07-20 11:36 | Outpatient (CLI) | payer MEDICARE | END 2019-07-20 11:37 | disposition home or self-care (01) | LOC: DI 11:36 | PROVIDERS: ATTEND Family Medicine | DX: Z53.9 Procedure and treatment not carried out, unspecified reason (principal) ==

== ENCOUNTER 2019-07-21 12:58 | Outpatient (CLI) | payer MEDICARE ==
--- NOTE | 2019-07-21 17:15 | XRAY Report ---
Reason: DIAPHRAGM DISORDER Procedure Date: 07/21/2019 Accession Number: [id number] / [id number] Procedure: FL - Fluoro Independent Procedure CPT Code: FULL RESULT: EXAM: SNIFF TEST EXAM DATE: 07/21/2019 01:29 PM. CLINICAL HISTORY: Elevated right diaphragm COMPARISON: CHEST 2 VIEW 07/14/2019 10:36 PM. TECHNIQUE: Real-time fluoroscopic imaging of the diaphragms while performing a sniff test. Fluoroscopy Time: 2 minutes 16 seconds. 263 images. FINDINGS: The right hemidiaphragm is elevated and has been elevated since the earliest available study of 2007. The diaphragms move together with slightly less excursion on the right compared to the left.. No paradoxical motion is identified. IMPRESSION: Negative sniff test. No paradoxical diaphragmatic motion is seen. RADIA
== END 2019-07-21 12:59 | disposition home or self-care (01) ==
LOC: DI 12:58
PROVIDERS: ATTEND Family Medicine
DX: J98.6 Disorders of diaphragm (principal)
CPT/HCPCS: 76000

== ENCOUNTER 2019-09-11 18:33 | Emergency (ER) | payer MEDICARE ==
[2019-09-11 18:58] LABS: BILIRUBIN,URINE NEGATIVE (NEGATIVE); GLUCOSE, URINE (UA) NEGATIVE (NEGATIVE); KETONES,URINE (UA) NEGATIVE (NEGATIVE); LEUKOCYTE ESTERASE, URINE NEGATIVE (NEGATIVE); NITRITE,URINE NEGATIVE (NEGATIVE); OCCULT BLOOD,URINE TRACE-INTA (NEGATIVE); PROTEIN,URINE NEGATIVE (NEGATIVE); UROBILINOGEN,URINE 0.2 (NORMAL) E.U./dL (NORMAL)
[2019-09-11 19:06] LABS: CLARITY,URINE CLEAR (CLEAR)
[2019-09-11 19:36] LABS: BASOPHILS % (AUTO) 0.3 %; EOSINOPHILS # (AUTO) 0.1 10^3/uL (0.0-0.7); EOSINOPHILS % (AUTO) 1.7 %; LYMPHOCYTES # (AUTO) 1.9 10^3/uL (1.5-3.5); MEAN CORPUSCULAR HEMOGLOBIN 30.7 pg (27.0-31.0); MEAN CORPUSCULAR HGB CONC 33.4 g/dL (32.0-36.0); MEAN PLATELET VOLUME 9.7 fL (7.9-10.8); MONOCYTES # (AUTO) 0.5 10^3/uL (0.0-1.0); MONOCYTES % (AUTO) 9.1 %; NEUTROPHILS # (AUTO) 3.4 10^3/uL (1.5-6.6); NEUTROPHILS % (AUTO) 57.6 %; PLT - PLATELET COUNT 257 10^3/uL (130-450); RED BLOOD COUNT 4.23 10^6/uL (4.20-5.40); RED CELL DISTRIBUTION WIDTH 12.8 % (12.0-15.0)
[2019-09-11 19:48] LABS: ALBUMIN 4.3 g/dL (3.2-5.5); ALBUMIN/GLOBULIN RATIO 1.5 (1.0-2.2); BILIRUBIN,TOTAL 0.7 mg/dL (0.2-1.0); CALCIUM 9.2 mg/dL (8.5-10.3); CREATININE 0.7 mg/dL (0.4-1.0); TOTAL PROTEIN 7.1 g/dL (6.7-8.2)
[2019-09-11] MEDS ORDERED: MORPHINE 2 MG/ML CARPUJECT IVP STA (19:52)
[2019-09-11] MEDS ORDERED: SODIUM CHLORIDE 0.9% 1,000 ML IV ONE (19:52)
--- NOTE | 2019-09-11 19:52 | ED Physician Documentation ---
History of Present Illness - Stated complaint Stated Complaint: R SIDE PAIN - Chief complaint Chief Complaint: Back Pain - History obtained from History obtained from: Patient, Family - History of Present Illness Timing: How many weeks ago (2-3) Pain level max: 7 Pain level now: 5 - Additonal information Additional information: Patient has had right-sided abdominal/flank pain for the past several weeks. Decreased appetite. Thinks it may be worse with eating, also worse with movement. No fevers. No vomiting. No diarrhea. No hematuria. No dysuria. No constipation. Nothing makes it better. 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 : None HEENT: Chronic hearing loss Psych: None Musculoskeletal: Rheumatoid arthritis Derm: None - Past Surgical History Past Surgical History: Yes General: Colonoscopy, EGD Ortho: Arthroscopic surgery /HOLTER SCANNING TECHNICIAN: section, 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 - Present Medications Home Medications: Ambulatory Orders Medication Instructions Recorded Confirmed Citalopram [CeleXA] 40 mg PO DAILY 03/19/13 03/04/18 LORazepam [Ativan] 1 mg PO BID PRN 03/19/13 03/04/18 Cholecalciferol (Vitamin D3) 2,000 unit PO DAILY 03/31/17 03/04/18 [Vitamin D3] Lactobacillus Acidophilus 1 each PO DAILY 02/05/18 03/04/18 [Probiotic Acidophilus] Omeprazole 40 mg PO BID 02/05/18 03/04/18 Zolpidem Tartrate [Ambien] 10 mg PO QPM PRN 02/05/18 03/04/18 Mesalamine [Delzicol] 800 mg PO TID #90 capsule 02/09/18 03/04/18 Thyroid [[place] Thyroid] 60 mg PO QDAC #30 tablet 02/09/18 03/04/18 Aspirin 81 mg PO DAILY 03/04/18 03/04/18 Docusate Sodium 100 mg PO DAILY #30 capsule 04/29/18 HYDROcod/ACETAM 5/325 [[place] 5/325] 1 tab PO Q8H PRN #20 tablet 04/29/18 Metoclopramide [Reglan] 10 mg PO BID PRN #12 tablet 07/15/19 diphenhydrAMINE [Benadryl] 25 mg PO HS PRN #10 capsule 07/15/19 Hydrocodone/Acetaminophen 1 - 2 each PO Q6H PRN #14 tablet 09/11/19 [Hydrocodon-Acetaminophen 5-325] - Allergies Allergies/Adverse Reactions: Allergies Allergy/AdvReac Type Severity Reaction Status Date / Time Sulfa (Sulfonamide Allergy Severe Respiratory Verified 09/11/19 18:37 Antibiotics) amoxicillin AdvReac Nausea Verified 09/11/19 18:37 aripiprazole [From Abilify] AdvReac Unknown Verified 09/11/19 18:37 - Social History Does the pt smoke?: No Smoking Status: Never smoker Does the pt drink ETOH?: No Does the pt have substance abuse?: No - Immunizations Immunizations are current?: Yes - POLST Patient has POLST: Yes POLST Status: Full Code PD ED PE NORMAL - Vitals Vital signs reviewed: Yes - General General: Alert and oriented X 3, No acute distress - HEENT HEENT: Moist mucous membranes - Neck Neck: Supple, no meningeal sign - Cardiac Cardiac: RRR - Respiratory Respiratory: No respiratory distress, Clear bilaterally - Abdomen Abdomen: Soft, Non tender, Non distended - Back Back: No CVA TTP - Derm Derm: Warm and dry - Extremities Extremities: No edema - Neuro Neuro: Alert and oriented X 3 Results - Vitals Vitals: Oxygen O2 Source Room air - Labs Labs: Laboratory Tests 09/11/19 09/11/19 09/11/19 18:50 19:25 19:25 WBC 6.0 RBC 4.23 Hgb 13.0 Hct 38.9 MCV 92.0 MCH 30.7 MCHC 33.4 RDW 12.8 Plt Count 257 MPV 9.7 Neut # (Auto) 3.4 Lymph # (Auto) 1.9 [place] # (Auto) 0.5 Eos # (Auto) 0.1 Baso # (Auto) 0.0 Absolute Nucleated RBC 0.00 Nucleated RBC % 0.0 Sodium 141 Potassium 3.7 Chloride 106 Carbon Dioxide 26 Anion Gap 9.0 BUN 18 Creatinine 0.7 Estimated GFR (MDRD) 83 L Glucose 109 H Calcium 9.2 Total Bilirubin 0.7 AST 23 ALT 16 Alkaline Phosphatase 69 Total Protein 7.1 Albumin 4.3 Globulin 2.8 Albumin/Globulin Ratio 1.5 Lipase 34 Urine Color YELLOW Urine Clarity CLEAR Urine pH 6.0 Ur Specific [place] 1.010 Urine Protein NEGATIVE Urine Glucose (UA) NEGATIVE Urine Ketones NEGATIVE Urine Occult Blood TRACE-INTA Urine Nitrite NEGATIVE Urine Bilirubin NEGATIVE Urine Urobilinogen 0.2 (NORMAL) Ur Leukocyte Esterase NEGATIVE Ur Microscopic Review NOT INDICATED Urine Culture Comments NOT INDICATED - Rads (name of study) CT abd/pelvis Radiology: Prelim report reviewed, EMP read contemporaneously, See rad report (1. Gallbladder: Multiple gallstones. 2. Common duct is mildly dilated at 8 mm, unchanged. 3. Pancreas: Mildly dilated pancreatic duct measuring 5 mm, mildly increased. 4. See above. ) PD MEDICAL DECISION MAKING - ED course Complexity details: reviewed results, re-evaluated patient, considered differential, d/w patient, d/w family ED course: Patient is well appearing, non-toxic. No evidence of ureteral stones. No pyelonephritis. No sepsis. Does appear to have biliary colic, likely causing her symptoms. We will have her follow-up with her doctor for further care. Patient counseled regarding signs and symptoms for which I believe and urgent re-evaluation would be necessary. Patient with good understanding of and agreement to plan and is comfortable going home at this time This document was made in part using voice recognition software. While efforts are made to proofread this document, sound alike and grammatical errors may occur. Departure - Departure Disposition: 01 Home, Self Care Clinical Impression: Biliary colic Condition: Good Instructions: ED Gallstone W Biliary Colic Follow-Up: Leanne Flores DO [Primary Care Provider] - Prescriptions: Hydrocodone/Acetaminophen [Hydrocodon-Acetaminophen 5-325] 1 - 2 each PO Q6H PRN #14 tablet PRN Reason: pain Comments: You appear to be having pain from your gallbladder. You have gallstones. There are no kidney stones. Return if you worsen especially for worsening pain and/or fever. You should meet with a surgeon to have your gallbladder removed. Do not drink alcohol or drive while on narcotic pain medicine. Note that many narcotic pain relievers also contain tylenol/acetaminophen. Please ensure that your total dose of acetaminophen from all sources does not exceed 3 grams (3000mg) per day. You may constipated on this medication, take a stool softener such as "Colace" twice a day while you are on it. Also recommend a byaw-izr-gyhgmbv laxative such as senna or MiraLAX any day that you do not have a bowel movement. If you received narcotic pain medication in the emergency department, do not drive or operate machinery for the next 24 hours. Discharge Date/Time: 09/11/19 21:52
[2019-09-11] MEDS ORDERED: IOVERSOL 320 100 ML VIAL IVP ONE ×2 (20:00→20:31)
[2019-09-11] MEDS ORDERED: MORPHINE 2 MG/ML CARPUJECT ONE (20:10)
--- NOTE | 2019-09-11 21:09 | CT Report ---
Reason: R flank pain Procedure Date: 09/11/2019 Accession Number: [id number] / [id number] Procedure: CT - Abdomen/Pelvis W CPT Code: Final Report FULL RESULT: EXAM: CT ABDOMEN AND PELVIS EXAM DATE: 09/11/2019 08:29 PM. CLINICAL HISTORY: Right flank pain. COMPARISONS: ABDOMEN/PELVIS W/ 04/29/2018 6:12 PM. TECHNIQUE: Routine helical CT imaging was performed through the abdomen and pelvis. IV contrast: Opti 320 100 mL. Enteric contrast: No. Reconstructions: Coronal and sagittal. In accordance with CT protocol optimization, one or more of the following dose reduction techniques were utilized for this exam: automated exposure control, adjustment of mA and/or KV based on patient size, or use of iterative reconstructive technique. FINDINGS: Lung bases: Moderate elevation right hemidiaphragm again noted. The liver dome was not imaged. Gallbladder: Multiple gallstones. Common duct is mildly dilated at 8 mm, unchanged. Pancreas: Mildly dilated pancreatic duct measuring 5 mm, mildly increased. Spleen: Unremarkable. Adrenals: Unremarkable. Kidneys: Unremarkable. No urinary tract calculi are seen. Bowel: Normal appendix. No acute bowel findings. No free fluid or free air. Pelvis: The bladder and remaining pelvic organs appear unremarkable. Bones: No acute bone findings. Vasculature: No acute findings. IMPRESSION: 1. Gallbladder: Multiple gallstones. 2. Common duct is mildly dilated at 8 mm, unchanged. 3. Pancreas: Mildly dilated pancreatic duct measuring 5 mm, mildly increased. 4. See above. RADIA
[2019-09-11] MEDS ORDERED: HYDROcod/ACETAM 5/325 MG TABLET PO STA (21:37)
[2019-09-11 21:53] VITALS: BP 136/74
== END 2019-09-11 21:52 | disposition home or self-care (01) ==
LOC: ED 18:33
DX: K80.20 Calculus of gallbladder without cholecystitis without obstruction (principal)
CPT/HCPCS: 36415; 74177; 80053; 81003; 83690; 85025; 96361; 96374; 99284; A9270; Q9967; 81001; 87086

== ENCOUNTER 2019-09-17 06:31 | Outpatient (CLI) | payer MEDICARE ==
--- NOTE | 2019-09-17 12:27 | CONSULTATION NOTE ---
Referring Provider Name of Referring Provider:: Dr. Tabor Consult Date: 09/17/19 Chief Complaint - Chief Complaint Chief Complaint: abd pain History of Present Illness - Admitted From Admitted From:: ER - History Obtained From Records Reviewed: yes History obtained from: pt, records Exam Limitations: pt has been medicated for pain - History of Present Illness HPI Comment/Other: 68 yo female with 8 day hx of epigastric and RUQ pain associated with interm ittent nausea and vomiting but no fever/chills. Eating exacerbates the pain but there is no hx of specific food intolerance. She was seen in the ER 6 days ago and an abd/pelvic CT showed cholelithiasis with borderline dilatation of CBC and main pancreatic duct but nl labs including CBC, lft's and lipase. She was advised to seek surgical consultation which she did several days ago with Dr. Wise and is scheduled for a lap bebe tomorrow. She has been taking Vicodin for pain and has become constipated. However last night at approximately 2000 the pain acutely worsened, prompting her to call 911 and be transported to the ER where evaluation now shows elevated WBC at 14k, nl lft's except bili 1.4, nl lipase, and an abd US showing multiple small stones in gallbladder, nl bile ducts, nl gb wall thickness but sono + Simms's sign. Her pain has persisted overnight and surgical consultation was requested. She has a hx of GERD, gastroparesis, and ulcerative colitis and has been followed by [facility] with recent favorable EGD and colonoscopies per pt. No recent wt loss, no hx hepatitis/jaundice, and neg FH gallbladder disease. 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 - Substance History Use: Uses substance without health or social issues: NONE - POLST Patient has POLST: Yes POLST Status: Full Code Meds/Allgy - Home Medications Home Medications: Ambulatory Orders Medication Instructions Recorded Confirmed Citalopram [CeleXA] 40 mg PO DAILY 03/19/13 09/17/19 LORazepam [Ativan] 1 mg PO BID PRN 03/19/13 09/17/19 Cholecalciferol (Vitamin D3) 2,000 unit PO DAILY 03/31/17 09/17/19 [Vitamin D3] Omeprazole 40 mg PO BID 02/05/18 09/17/19 Zolpidem Tartrate [Ambien] 10 mg PO QPM PRN 02/05/18 09/17/19 Levothyroxine Sodium 100 mcg PO DAILY 09/14/19 09/17/19 - Allergies Allergies/Adverse Reactions: Allergies Allergy/AdvReac Type Severity Reaction Status Date / Time Sulfa (Sulfonamide Allergy Severe rash, Verified 09/17/19 06:52 Antibiotics) hives, blood vessel rupture amoxicillin AdvReac Nausea Verified 09/17/19 06:52 aripiprazole [From Abilify] AdvReac Unknown Verified 09/17/19 06:52 Review of Systems - Constitutional Constitutional: reports: Poor appetite, Weight gain. denies: Fever, Chills, Weight loss - Gastrointestinal Gastrointestinal: reports: Abdominal pain, Constipation, Nausea, Vomiting, Reflux/heartburn. denies: Rectal bleeding, Black stools, Bloody stools, Coffee grounds emesis - Psychiatric Psychiatric: reports: Depression - Hematologic/Lymphatic Hematologic/Lymphatic: denies: Blood clots, Bleeding tendencies - All Other Systems All Other Systems: reports: Reviewed and negative (or covered in HPI/PMH) Exam - Vital Signs Reviewed Vital Signs: Yes - Physical Exam General Appearance: positive: Moderate distress, Lethargic (received narcotic analgesic; initially lethargic but became alert during the H & P as it progressed.) Eyes Bilateral: positive: Normal inspection, No scleral icterus ENT: positive: ENT inspection nml, Pharynx nml, No signs of dehydration Neck: positive: Nml inspection, No JVD, Trachea midline. negative: Lymphadenopathy (R), Lymphadenopathy (L) Respiratory: positive: Chest non-tender, No respiratory distress, Breath sounds nml Cardiovascular: positive: Regular rate & rhythm, No murmur, No gallop Abdomen: positive: Nml bowel sounds, No distention, Tenderness (RUQ with guarding and rebound; no generalized peritoneal signs), Guarding, Rebound, Other (lower midline surgical scar; no hernias appreciated). negative: Hepatomegaly, Splenomegaly, Mass Skin: positive: Color nml, No rash, Warm, Dry Extremities: positive: Non-tender, No pedal edema. negative: Calf tenderness Neurologic/Psychiatric: positive: Oriented x3 Conclusion/Plan - Diagnosis Diagnosis: subacute calculous cholecystitis - Plan Plan: laparoscopic cholecystectomy with poss IOC discussed with pt and consent obtained. Risks of bleeding, infection, bile duct injury, and need for open procedure discussed in particular, as well as alternative of observation, and pt wishes to proceed with surgery today. Thanks, - Diagnostic Imaging Results Diagnostic Imaging Results: positive: Final report reviewed, Read independently Diagnostic Imaging Results Comments: See HPI Assess/Plan - Patient Problems Active Problems List: Current Active Problems Cholecystitis (Acute)
== END 2019-09-17 06:32 | disposition critical access hospital (66) ==
LOC: EMS 06:31
PROVIDERS: ATTEND Surgery
DX: R10.2 Pelvic and perineal pain (principal); R11.2 Nausea with vomiting, unspecified; R51 Headache; R00.1 Bradycardia, unspecified
CPT/HCPCS: A0425; A0427

== ENCOUNTER 2019-09-17 06:43 | Day surgery (SDC) | payer MEDICARE ==
[2019-09-17] MEDS ORDERED: MORPHINE 2 MG/ML CARPUJECT IVP STA (06:55)
[2019-09-17] MEDS ORDERED: ONDANSETRON 4 MG/2 ML VIAL IVP STA (06:55)
[2019-09-17 07:07] LABS: BASOPHILS % (AUTO) 0.3 %; EOSINOPHILS % (AUTO) 0.1 %; HGB - HEMOGLOBIN 14.7 g/dL (12.0-16.0); LYMPHOCYTES # (AUTO) 1.1 10^3/uL (1.5-3.5); LYMPHOCYTES % (AUTO) 7.4 %; MEAN CORPUSCULAR HEMOGLOBIN 30.4 pg (27.0-31.0); MEAN CORPUSCULAR HGB CONC 33.6 g/dL (32.0-36.0); MEAN CORPUSCULAR VOLUME 90.3 fL (81.0-99.0); MEAN PLATELET VOLUME 9.3 fL (7.9-10.8); MONOCYTES # (AUTO) 0.6 10^3/uL (0.0-1.0); MONOCYTES % (AUTO) 4.1 %; NEUTROPHILS # (AUTO) 12.8 10^3/uL (1.5-6.6); NEUTROPHILS % (AUTO) 87.6 %; PLT - PLATELET COUNT 278 10^3/uL (130-450); RED BLOOD COUNT 4.84 10^6/uL (4.20-5.40); RED CELL DISTRIBUTION WIDTH 12.3 % (12.0-15.0); WHITE BLOOD COUNT 14.6 x10^3/uL (4.8-10.8)
[2019-09-17 07:22] LABS: ALBUMIN 4.3 g/dL (3.2-5.5); ALBUMIN/GLOBULIN RATIO 1.4 (1.0-2.2); BILIRUBIN,TOTAL 1.4 mg/dL (0.2-1.0); CALCIUM 9.4 mg/dL (8.5-10.3); CREATININE 0.9 mg/dL (0.4-1.0); TOTAL PROTEIN 7.4 g/dL (6.7-8.2)
[2019-09-17] MEDS ORDERED: SODIUM CHLORIDE 0.9% 1,000 ML IV ONE ×4 (07:27→13:56)
--- NOTE | 2019-09-17 09:01 | ED Physician Documentation ---
PD HPI ABD PAIN - Stated complaint Stated Complaint: ABD PX - Chief complaint Chief Complaint: Abd Pain - History obtained from History obtained from: Patient, Family - History of Present Illness Timing - onset: How many weeks ago (several) Timing - duration: Weeks (several) Timing - details: Gradual onset, Still present, Waxing and waning Quality: Sharp, Pain Location: RUQ, Suprapubic Improved by: Laying still, Meds Worsened by: Moving, Breathing, Position, Palpation Associated symptoms: Nausea, Constipation Similar symptoms before: Diagnosis (gallstones) Recently seen: Emergency Dept - Additional information Additional information: 60-year-old female has had some right upper quadrant and right flank pain for the past several weeks has been diagnosed with cholelithiasis and she has been put on a restricted diet and some pain medication since she started the pain medication she has been constipated she has not had a bowel movement in 1 week. She now has some lower abdominal pain as well as persistence of the right upper quadrant pain and vomiting. She has not had fever. Review of Systems Constitutional: denies: Fever Eyes: denies: Decreased vision Ears: denies: Ear pain Nose: denies: Congestion Throat: denies: Sore throat Cardiac: denies: Chest pain / pressure Respiratory: denies: Dyspnea, Cough GI: reports: Abdominal Pain, Nausea, Vomiting, Constipation : denies: Dysuria, Frequency, Discharge Musculoskeletal: denies: Neck pain Neurologic: denies: Generalized weakness, Focal weakness, Numbness PD PAST MEDICAL HISTORY - Past Medical History Past Medical History: Yes Cardiovascular: High cholesterol Respiratory: None Neuro: None Endocrine/Autoimmune: HyPOthyroidism GI: GERD, Ulcers, Hiatal hernia, Colon polyps, Cholelithiasis, Ulcerative colitis, 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 : None HEENT: Chronic vision loss, Chronic hearing loss Psych: Depression, Anxiety Musculoskeletal: Osteoarthritis, Chronic back pain Derm: None - Past Surgical History Past Surgical History: Yes General: Colonoscopy, EGD Ortho: Other /CRATE BUILDER: section, 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 - Present Medications Home Medications: Ambulatory Orders Medication Instructions Recorded Confirmed Citalopram [CeleXA] 40 mg PO DAILY 03/19/13 09/17/19 LORazepam [Ativan] 1 mg PO BID PRN 03/19/13 09/17/19 Cholecalciferol (Vitamin D3) 2,000 unit PO DAILY 03/31/17 09/17/19 [Vitamin D3] Omeprazole 40 mg PO BID 02/05/18 09/17/19 Zolpidem Tartrate [Ambien] 10 mg PO QPM PRN 02/05/18 09/17/19 Levothyroxine Sodium 100 mcg PO DAILY 09/14/19 09/17/19 - Allergies Allergies/Adverse Reactions: Allergies Allergy/AdvReac Type Severity Reaction Status Date / Time Sulfa (Sulfonamide Allergy Severe rash, Verified 09/17/19 06:52 Antibiotics) hives, blood vessel rupture amoxicillin AdvReac Nausea Verified 09/17/19 06:52 aripiprazole [From Abilify] AdvReac Unknown Verified 09/17/19 06:52 - Social History Does the pt smoke?: No Smoking Status: Never smoker Does the pt drink ETOH?: No Does the pt have substance abuse?: No - Immunizations Immunizations are current?: Yes - POLST Patient has POLST: Yes POLST Status: Full Code PD ED PE NORMAL - Vitals Vital signs reviewed: Yes (normal ) - General General: Alert and oriented X 3, Well developed/nourished, Other (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, No motor deficit, No sensory deficit, Normal speech Eye Opening: Spontaneous Motor: Obeys Commands Verbal: Oriented GCS Score: 15 - Psych Psych: Other (mood is defeated and the affect is blunted) Results - Vitals Vitals: Vital Signs - 24 hr 09/17/19 09/17/19 09/17/19 06:44 07:26 08:52 Temperature 36.5 C 36.7 C 36.4 C L Heart Rate 52 L 52 L 50 L Respiratory 18 12 12 Rate Blood Pressure 117/73 111/64 109/66 O2 Saturation 97 94 96 09/17/19 10:22 Temperature 36.1 C L Heart Rate 54 L Respiratory 12 Rate Blood Pressure 123/67 O2 Saturation 97 Oxygen O2 Source Room air - Labs Labs: Laboratory Tests 09/17/19 09/17/19 09/17/19 07:00 07:00 08:20 WBC 14.6 H RBC 4.84 Hgb 14.7 Hct 43.7 MCV 90.3 MCH 30.4 MCHC 33.6 RDW 12.3 Plt Count 278 MPV 9.3 Neut # (Auto) 12.8 H Lymph # (Auto) 1.1 L [place] # (Auto) 0.6 Eos # (Auto) 0.0 Baso # (Auto) 0.0 Absolute Nucleated RBC 0.00 Nucleated RBC % 0.0 Sodium 138 Potassium 3.6 Chloride 105 Carbon Dioxide 21 Anion Gap 12.0 BUN 15 Creatinine 0.9 Estimated GFR (MDRD) 62 L Glucose 129 H Calcium 9.4 Total Bilirubin 1.4 H AST 28 ALT 18 Alkaline Phosphatase 69 Total Protein 7.4 Albumin 4.3 Globulin 3.1 Albumin/Globulin Ratio 1.4 Lipase 30 Urine Color DARK YELLOW Urine Clarity CLEAR Urine pH 5.0 Ur Specific [place] >=1.030 H Urine Protein NEGATIVE Urine Glucose (UA) NEGATIVE Urine Ketones 15 H Urine Occult Blood NEGATIVE Urine Nitrite NEGATIVE Urine Bilirubin NEGATIVE Urine Urobilinogen 1 (NORMAL) Ur Leukocyte Esterase NEGATIVE Ur Microscopic Review NOT INDICATED Urine Culture Comments NOT INDICATED - Rads (name of study) u/s GB Radiology: Prelim report reviewed (Impression: There is sludge and/or small stones layering in the gallbladder lumen. Reportedly, the patient is focally tender over the gallbladder. No wall thickening or pericholecystic fluid. Equivocal for cholecystitis.), EMP read indepedently, See rad report Procedures - Bedside sono Bedside sono by EMP: With use of bedside ultrasound the right upper quadrant is imaged there is a thickened gallbladder wall of 0.6 cm with sonographic tenderness. PD MEDICAL DECISION MAKING - ED course Complexity details: reviewed old records, reviewed results, re-evaluated patient, considered differential, d/w patient, d/w family ED course: 68-year-old female with right upper quadrant pain and gallstones has persistence of her pain and she is now become constipated and has intolerable pain. She has an appointment to see Dr. Wise tomorrow for removal of her gallbladder. Here in the emergency department the patient is administered morphine 4 mg intravenously with some improvement in her pain she has a tender right upper quadrant and on bedside evaluation she does appear to have a thickened gallbladder wall I am concerned about cholecystitis and a formal ultrasound was obtained which does not demonstrate the degree of wall thickening that I am appreciating. The patient is also constipated and an oil retention enema does not produce results she is administered a warm water enema with good result. Departure - Departure Disposition: ED Place in Observation Clinical Impression: Cholecystitis Condition: Stable
[2019-09-17 09:50] LABS: GLUCOSE, URINE (UA) NEGATIVE (NEGATIVE); KETONES,URINE (UA) 15 mg/dL (NEGATIVE); LEUKOCYTE ESTERASE, URINE NEGATIVE (NEGATIVE); NITRITE,URINE NEGATIVE (NEGATIVE); OCCULT BLOOD,URINE NEGATIVE (NEGATIVE); PROTEIN,URINE NEGATIVE (NEGATIVE); UROBILINOGEN,URINE 1 (NORMAL) E.U./dL (NORMAL)
[2019-09-17 09:56] LABS: BILIRUBIN,URINE NEGATIVE (NEGATIVE); CLARITY,URINE CLEAR (CLEAR); ICTOTEST,URINE NEGATIVE
[2019-09-17] MEDS ORDERED: MORPHINE 10 MG/ML VIAL IVP STA (10:05)
--- NOTE | 2019-09-17 10:51 | Ultrasound Report ---
Reason: right upper quadrant pain Procedure Date: 09/17/2019 Accession Number: [id number] / [id number] Procedure: US - Abdomen Limited CPT Code: Final Report FULL RESULT: EXAM: ABDOMEN ULTRASOUND LIMITED, RIGHT UPPER QUADRANT EXAM DATE: 09/17/2019 09:48 AM. CLINICAL HISTORY: Right upper quadrant pain. COMPARISON: ABDOMEN/PELVIS W/ 09/11/2019 8:23 PM. TECHNIQUE: Real-time scanning was performed with static images obtained. FINDINGS: Liver: No focal abnormality demonstrated.Approximately 12.6 cm. Main portal vein flow: Hepatopetal. Gallbladder: There is layering sludge or small stones in the gallbladder lumen. No gallbladder wall thickening. Positive sonographic Simms sign. Biliary System: CBD measures 4 mm. No intrahepatic or extrahepatic ductal dilatation. Other: No right hydronephrosis. IMPRESSION: There is sludge and/or small stones layering in the gallbladder lumen. Reportedly, the patient is focally tender over the gallbladder. No wall thickening or pericholecystic fluid. Equivocal for cholecystitis. RADIA
[2019-09-17] MEDS ORDERED: MIDAZOLAM 2 MG/2 ML VIAL IVP ONE (12:21)
[2019-09-17] MEDS ORDERED: fentaNYL 100 MCG/2 ML VIAL IVP ONE (12:21)
[2019-09-17] MEDS ORDERED: PROPOFOL 200 MG/20 ML VIAL IVP ONE (12:21)
[2019-09-17] MEDS ORDERED: GLYCOPYRROLATE 1 MG/5 ML VIAL IVP ONE (12:21)
[2019-09-17] MEDS ORDERED: KETOROLAC 30 MG/ML VIAL IVP ONE (12:21)
[2019-09-17] MEDS ORDERED: ePHEDrine 50 MG/ML VIAL IVP ONE (12:21)
[2019-09-17] MEDS ORDERED: ROCURONIUM 50 MG/5 ML VIAL IVP ONE (12:21)
[2019-09-17] MEDS ORDERED: NEOSTIGMINE 1 MG/1 ML 10 ML MDV IVP ONE (12:21)
[2019-09-17] MEDS ORDERED: DEXAMETHASONE 4 MG/ML VIAL IVP ONE (12:21)
[2019-09-17] MEDS ORDERED: PIPERACILLIN/TAZOBACTAM 3.375 GM in SODIUM CHLORIDE 0.9% MINIBAG 100 ML IV STA (12:23)
--- NOTE | 2019-09-17 12:54 | ANESTHESIA ---
Pre-Anesthesia VS, & Labs - Diagnosis acute cholecystitis - Procedure lap bebe Vital Signs: Temp Pulse Resp BP Pulse Ox 36.1 C L 57 L 14 101/63 95 09/17/19 10:22 09/17/19 12:07 09/17/19 12:07 09/17/19 12:07 09/17/19 12:07 Height 5 ft 8 in Weight (kg) 75.296 kg Body Mass Index 25.2 - NPO >8 hours - Is Patient ?: No - Lab Results Current Lab Results: Laboratory Tests 09/17/19 07:00: Sodium 138, Potassium 3.6, Chloride 105, Carbon Dioxide 21, Anion Gap 12.0, BUN 15, Creatinine 0.9, Estimated GFR (MDRD) 62 L, Glucose 129 H , Calcium 9.4, Total Bilirubin 1.4 H, AST 28, ALT 18, Alkaline Phosphatase 69, Total Protein 7.4, Albumin 4.3, Globulin 3.1, Albumin/Globulin Ratio 1.4, Lipase 30 09/17/19 07:00: WBC 14.6 H, RBC 4.84, Hgb 14.7, Hct 43.7, MCV 90.3, MCH 30.4, MCHC 33.6, RDW 12.3, Plt Count 278, MPV 9.3, Neut # (Auto) 12.8 H, Lymph # (Auto) 1.1 L, [place] # (Auto) 0.6, Eos # (Auto) 0.0, Baso # (Auto) 0.0, Absolute Nucleated RBC 0.00, Nucleated RBC % 0.0 Fish Bones: 09/17/19 07:00 09/17/19 07:00 Home Medications and Allergies Active Medications Sodium Chloride (Normal Saline 0.9%) 1,000 mls @ 250 mls/hr IV .Q4H ONE Stop: 09/17/19 15:38 Last Admin: 09/17/19 11:57 Dose: 250 mls/hr Citalopram [CeleXA] 40 mg PO DAILY 03/19/13 LORazepam [Ativan] 1 mg PO BID PRN 03/19/13 Cholecalciferol (Vitamin D3) [Vitamin D3] 2,000 unit PO DAILY 03/31/17 Omeprazole 40 mg PO BID 02/05/18 Zolpidem Tartrate [Ambien] 10 mg PO QPM PRN 02/05/18 Levothyroxine Sodium 100 mcg PO DAILY 09/14/19 Allergies/Adverse Reactions: Allergies Allergy/AdvReac Type Severity Reaction Status Date / Time Sulfa (Sulfonamide Allergy Severe rash, Verified 09/17/19 06:52 Antibiotics) hives, blood vessel rupture amoxicillin AdvReac Nausea Verified 09/17/19 06:52 aripiprazole [From Abilify] AdvReac Unknown Verified 09/17/19 06:52 Anes History & Medical History - Anesthetic History Anesthesia Complications: reports: No previous complications - Medical History Cardiovascular: reports: High cholesterol Pulmonary: reports: None Gastrointestinal: reports: GERD, Ulcers, Hiatal hernia, Colon polyps, Cholelithiasis, Ulcerative colitis, Other Urinary: reports: None Neuro: reports: None Musculoskeletal: reports: Osteoarthritis, Chronic back pain Endocrine/Autoimmune: reports: HyPOthyroidism Blood Disorders: reports: None Skin: reports: None Smoking Status: Never smoker Psychosocial: reports: Depression, Anxiety - Surgical History General: Colonoscopy, EGD Gynecologic: section, 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 Orthopedic: Other Exam General: Alert, Oriented x3, Cooperative, No acute distress Dental: Other (chipped front) Mouth Openin Fingerbreadth Neck Mobility: Normal Mallampati classification: III Thyromental Distance: greater than 6 cm Respiratory: Lungs clear, Normal breath sounds, No respiratory distress, No accessory muscle use Cardiovascular: Regular rate, Normal S1, Normal S2, No murmurs Mental/Cognitive Status: Alert/Oriented X3, Normal for patient Plan Anesthesia Type: General Consent for Procedure(s) Verified and Reviewed: Yes Code Status: Attempt Resuscitation ASA classification: 2-Mild systemic disease Is this case an emergency?: Yes
[2019-09-17] MEDS ORDERED: LACTATED RINGERS 1,000 ML IV ONE ×2 (13:56)
[2019-09-17] MEDS: BUPIVACAINE 0.5% PF 30 ML VIAL ONE ×2 (14:06→14:59)
[2019-09-17] MEDS ORDERED: ACETAMINOPHEN 1,000 MG/100 ML 100 ML IV ONE (15:21)
[2019-09-17] MEDS ORDERED: ACETAMINOPHEN 325 MG TABLET PO PRN (15:23)
[2019-09-17] MEDS ORDERED: IBUPROFEN 600 MG TABLET PO PRN (15:23)
[2019-09-17] MEDS ORDERED: ONDANSETRON 4 MG/2 ML VIAL IVP PRN (15:23)
[2019-09-17] MEDS ORDERED: oxyCODONE 5 MG TABLET PO PRN (15:23)
--- NOTE | 2019-09-17 15:29 | OPERATIVE REPORT ---
Operative Report - General Procedure Date: 09/17/19 Planned Procedure: laparoscopic cholecystectomy with poss IOC Pre-Op Diagnosis: subacute calculous cholecystitis Procedure Performed: Laparoscopic cholecystectomy Post Op Diagnosis: same - Procedure Note Primary Surgeon: Vaughn Resendiz MD [facility] Anesthesia Provider: Ines Wadsworth CRNA Pathology: gallbladder and contents Estimated Blood Loss (mL): 20 Findings: mildly thickened distended gallbladder with multiple black calcium bilirubinate stones; Complications: none
[2019-09-17] MEDS ORDERED: HYDROmorphone 0.5 MG/0.5 ML SYRINGE ONE (15:42)
--- NOTE | 2019-09-17 17:38 | OPERATIVE REPORT ---
DATE OF SERVICE: 09/17/2019 Physician: Vaughn Resendiz MD PREOPERATIVE DIAGNOSIS: Subacute calculous cholecystitis. POSTOPERATIVE DIAGNOSIS: Subacute calculous cholecystitis. PROCEDURE: Laparoscopic cholecystectomy. SURGEON: Vaughn Resendiz MD ANESTHESIA TYPE/PROVIDER: General endotracheal by Ines Wadsworth CRNA ESTIMATED BLOOD LOSS: 20 mL. COMPLICATIONS: None. FINDINGS: Laparoscopy revealed a markedly distended and tense, mildly thickened gallbladder. Visualized portions of the liver, stomach, small and large bowel were within normal limits. The cystic duct appeared to be of normal caliber, duct was not visualized. Following resection, the gallbladder seen to contain multiple irregular black calcium bilirubinate type stones measuring from 2 to 5 mm in size. INDICATIONS: The patient is a 68-year-old woman with an eight-day history of epigastric right upper quadrant pain, nausea and vomiting associated with right upper quadrant and epigastric tenderness and elevated white count, essentially normal liver function tests and lipase, and ultrasound showing multiple stones within the gallbladder that was distended and normal bile ducts and positive sonographic Simms signs. She was thought to be suffereing from acute or subacute calculous cholecystitis and laparoscopic cholecystectomy was recommended for definitive surgical treatment. TECHNIQUE: After informed consent, the patient was taken to the operating room where she was placed under general endotracheal anesthesia. Preoperative preparation included application of sequential calf compression boots, administration of 3.375 grams of Zosyn intravenously within an hour of the incision. Her abdomen was prepared with ChloraPrep solution and draped in the usual sterile fashion. A transverse incision was made along the superior edge of the umbilicus and carried down through the layers of the abdominal wall until the peritoneum was identified and entered sharply. A 10 mm Martín cannula was inserted. Pneumoperitoneum was achieved with carbon dioxide. A 5 mm, 38-degree [place] telescope was inserted. Laparoscopy was carried out with findings as noted above. Three additional 5 mm ports were placed in the right upper quadrant. Instruments were passed. The gallbladder was aspirated of approximately 10 mL of dark green bile to facilitate grasping the gallbladder and then retracting it in the cephalad and lateral direction. The cystic triangle of [place] was exposed and carefully dissected using the hook electrode and electrocautery, isolating the cystic duct and artery adjacent to the gallbladder and achieving the critical view of safety. The cystic duct was doubly clipped proximally, triply distally adjacent to the gallbladder and divided between. The cystic artery was doubly clipped proximally and distally adjacent to the gallbladder and divided between. The gallbladder was excised from the liver bed using electrocautery for dissection and hemostasis. The gallbladder was detached intact, placed in an organ retrieval bag, extracted, opened on side table with findings noted above, and the tissue sent for pathologic evaluation. After hemostasis was assured, the right upper quadrant was copiously irrigated with saline solution, following which instruments and cannulas were removed under direct vision. Pneumoperitoneum was allowed to escape. The incisions were closed in layers using continuous 0 Vicryl to reapproximate the midline fascia at the umbilicus, followed by 4-0 Monocryl subcuticular skin closure at all the port sites, followed by Dermabond. A 30 mL of 0.5% Marcaine with epinephrine was infiltrated into the incision to assist in postoperative analgesia. Anesthesia was terminated. The patient was transferred to the recovery room in satisfactory condition. Sponge and needle counts were correct x2. No drains were used. TD: 09/17/2019 15:36 ASTON
[2019-09-17 18:17] VITALS: BP 116/63
--- NOTE | 2019-09-28 13:41 | CONSULTATION NOTE ---
Referring Provider Name of Referring Provider:: Dr. Tabor Consult Date: 09/17/19 Chief Complaint - Chief Complaint Chief Complaint: abd pain History of Present Illness - Admitted From Admitted From:: ER - History Obtained From Records Reviewed: yes History obtained from: pt, records Exam Limitations: pt has been medicated for pain - History of Present Illness HPI Comment/Other: 68 yo female with 8 day hx of epigastric and RUQ pain associated with interm ittent nausea and vomiting but no fever/chills. Eating exacerbates the pain but there is no hx of specific food intolerance. She was seen in the ER 6 days ago and an abd/pelvic CT showed cholelithiasis with borderline dilatation of CBC and main pancreatic duct but nl labs including CBC, lft's and lipase. She was advised to seek surgical consultation which she did several days ago with Dr. Wise and is scheduled for a lap bebe tomorrow. She has been taking Vicodin for pain and has become constipated. However last night at approximately 2000 the pain acutely worsened, prompting her to call 911 and be transported to the ER where evaluation now shows elevated WBC at 14k, nl lft's except bili 1.4, nl lipase, and an abd US showing multiple small stones in gallbladder, nl bile ducts, nl gb wall thickness but sono + Simms's sign. Her pain has persisted overnight and surgical consultation was requested. She has a hx of GERD, gastroparesis, and ulcerative colitis and has been followed by [facility] with recent favorable EGD and colonoscopies per pt. No recent wt loss, no hx hepatitis/jaundice, and neg FH gallbladder disease. 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 - Substance History Use: Uses substance without health or social issues: NONE - POLST Patient has POLST: Yes POLST Status: Full Code Meds/Allgy - Home Medications Home Medications: Ambulatory Orders Medication Instructions Recorded Confirmed Citalopram [CeleXA] 40 mg PO DAILY 03/19/13 09/17/19 LORazepam [Ativan] 1 mg PO BID PRN 03/19/13 09/17/19 Cholecalciferol (Vitamin D3) 2,000 unit PO DAILY 03/31/17 09/17/19 [Vitamin D3] Omeprazole 40 mg PO BID 02/05/18 09/17/19 Zolpidem Tartrate [Ambien] 10 mg PO QPM PRN 02/05/18 09/17/19 Levothyroxine Sodium 100 mcg PO DAILY 09/14/19 09/17/19 - Allergies Allergies/Adverse Reactions: Allergies Allergy/AdvReac Type Severity Reaction Status Date / Time Sulfa (Sulfonamide Allergy Severe rash, Verified 09/17/19 06:52 Antibiotics) hives, blood vessel rupture amoxicillin AdvReac Nausea Verified 09/17/19 06:52 aripiprazole [From Abilify] AdvReac Unknown Verified 09/17/19 06:52 Review of Systems - Constitutional Constitutional: reports: Poor appetite, Weight gain. denies: Fever, Chills, Weight loss - Gastrointestinal Gastrointestinal: reports: Abdominal pain, Constipation, Nausea, Vomiting, Reflux/heartburn. denies: Rectal bleeding, Black stools, Bloody stools, Coffee grounds emesis - Psychiatric Psychiatric: reports: Depression - Hematologic/Lymphatic Hematologic/Lymphatic: denies: Blood clots, Bleeding tendencies - All Other Systems All Other Systems: reports: Reviewed and negative (or covered in HPI/PMH) Exam - Vital Signs Reviewed Vital Signs: Yes - Physical Exam General Appearance: positive: Moderate distress, Lethargic (received narcotic analgesic; initially lethargic but became alert during the H & P as it progressed.) Eyes Bilateral: positive: Normal inspection, No scleral icterus ENT: positive: ENT inspection nml, Pharynx nml, No signs of dehydration Neck: positive: Nml inspection, No JVD, Trachea midline. negative: Lymphadenopathy (R), Lymphadenopathy (L) Respiratory: positive: Chest non-tender, No respiratory distress, Breath sounds nml Cardiovascular: positive: Regular rate & rhythm, No murmur, No gallop Abdomen: positive: Nml bowel sounds, No distention, Tenderness (RUQ with guarding and rebound; no generalized peritoneal signs), Guarding, Rebound, Other (lower midline surgical scar; no hernias appreciated). negative: Hepatomegaly, Splenomegaly, Mass Skin: positive: Color nml, No rash, Warm, Dry Extremities: positive: Non-tender, No pedal edema. negative: Calf tenderness Neurologic/Psychiatric: positive: Oriented x3 Conclusion/Plan - Diagnosis Diagnosis: subacute calculous cholecystitis - Plan Plan: laparoscopic cholecystectomy with poss IOC discussed with pt and consent obtained. Risks of bleeding, infection, bile duct injury, and need for open procedure discussed in particular, as well as alternative of observation, and pt wishes to proceed with surgery today. Thanks, - Lab Results Fish Bones: 09/17/19 07:00 09/17/19 07:00 - Diagnostic Imaging Results Diagnostic Imaging Results: positive: Final report reviewed, Read independently Diagnostic Imaging Results Comments: See HPI
== END 2019-09-17 19:03 | disposition home or self-care (01) ==
LOC: EDUNIT# → ED 06:43 → SDS 12:20 → MS2 15:54 → SDS 19:03
PROVIDERS: ATTEND Internal Medicine Gastroenterology
PROC: 0FT44ZZ Resection of Gallbladder, Percutaneous Endoscopic Approach (ICD-10-PCS; principal; 2019-09-17 13:45)
DX: K80.10 Calculus of gallbladder with chronic cholecystitis without obstruction (principal); K21.9 Gastro-esophageal reflux disease without esophagitis; E78.00 Pure hypercholesterolemia, unspecified; E03.9 Hypothyroidism, unspecified; K44.9 Diaphragmatic hernia without obstruction or gangrene; H54.7 Unspecified visual loss; H91.90 Unspecified hearing loss, unspecified ear; F32.9 Major depressive disorder, single episode, unspecified; F41.9 Anxiety disorder, unspecified; G89.29 Other chronic pain; M54.9 Dorsalgia, unspecified; M19.90 Unspecified osteoarthritis, unspecified site; Z87.11 Personal history of peptic ulcer disease
CPT/HCPCS: 36415; 47562; 76705; 80053; 81003; 83690; 85025; 96361; 96374; 99284; 99285; A9270; J0131; J1170; J7120; 81001; 87086

== ENCOUNTER 2019-09-26 10:45 | Outpatient (CLI) | payer OTHER ==
[2019-09-26 12:12] LABS: GLUCOSE, URINE (UA) NEGATIVE (NEGATIVE); KETONES,URINE (UA) NEGATIVE (NEGATIVE); LEUKOCYTE ESTERASE, URINE TRACE (NEGATIVE); NITRITE,URINE NEGATIVE (NEGATIVE); OCCULT BLOOD,URINE NEGATIVE (NEGATIVE); PH,URINE 7.5 PH (5.0-7.5); PROTEIN,URINE NEGATIVE (NEGATIVE); UROBILINOGEN,URINE 0.2 (NORMAL) E.U./dL (NORMAL)
[2019-09-26 12:25] LABS: BACTERIA,URINE Rare /HPF (None Seen); BILIRUBIN,URINE NEGATIVE (NEGATIVE); CLARITY,URINE CLEAR (CLEAR); ICTOTEST,URINE NEGATIVE; RBC,URINE None Seen /HPF (0-5); SQUAMOUS EPITHELIAL CELL,UR MANY Squamous (<= Few)
== END 2019-09-26 10:46 | disposition home or self-care (01) ==
LOC: LAB 10:45
PROVIDERS: ATTEND Surgery
DX: R31.29 Other microscopic hematuria (principal)
CPT/HCPCS: 81001; 87086

== ENCOUNTER 2019-09-29 08:00 | Outpatient (CLI) | payer MEDICARE ==
[2019-09-29 13:12] LABS: BASOPHILS % (AUTO) 0.4 %; EOSINOPHILS # (AUTO) 0.2 10^3/uL (0.0-0.7); EOSINOPHILS % (AUTO) 3.2 %; HGB - HEMOGLOBIN 14.1 g/dL (12.0-16.0); LYMPHOCYTES # (AUTO) 1.6 10^3/uL (1.5-3.5); LYMPHOCYTES % (AUTO) 22.7 %; MEAN CORPUSCULAR HEMOGLOBIN 30.3 pg (27.0-31.0); MEAN CORPUSCULAR HGB CONC 33.3 g/dL (32.0-36.0); MEAN CORPUSCULAR VOLUME 90.8 fL (81.0-99.0); MONOCYTES # (AUTO) 0.6 10^3/uL (0.0-1.0); MONOCYTES % (AUTO) 8.6 %; NEUTROPHILS # (AUTO) 4.7 10^3/uL (1.5-6.6); NEUTROPHILS % (AUTO) 64.5 %; PLT - PLATELET COUNT 322 10^3/uL (130-450); RED BLOOD COUNT 4.66 10^6/uL (4.20-5.40); RED CELL DISTRIBUTION WIDTH 12.4 % (12.0-15.0); WHITE BLOOD COUNT 7.2 x10^3/uL (4.8-10.8)
[2019-09-29 14:04] LABS: ALBUMIN 4.7 g/dL (3.2-5.5); ALBUMIN/GLOBULIN RATIO 1.5 (1.0-2.2); BILIRUBIN,TOTAL 1.4 mg/dL (0.2-1.0); CALCIUM 9.4 mg/dL (8.5-10.3); CREATININE 0.9 mg/dL (0.4-1.0); TOTAL PROTEIN 7.9 g/dL (6.7-8.2)
== END 2019-09-29 23:59 | disposition home or self-care (01) ==
LOC: LAB.WCP 08:00
PROVIDERS: ATTEND Family Medicine
DX: R10.9 Unspecified abdominal pain (principal)
CPT/HCPCS: 36415; 80053; 85025

== ENCOUNTER 2019-09-29 10:09 | Outpatient (CLI) | payer MEDICARE ==
--- NOTE | 2019-09-29 15:20 | XRAY Report ---
Reason: RIGHT FLANK PAIN, DIAPHRAGM DISORDER Procedure Date: 09/29/2019 Accession Number: [id number] / [id number] Procedure: WCP - Chest 2 View X-Ray CPT Code: 82218 Final Report FULL RESULT: EXAM: CHEST RADIOGRAPHY EXAM DATE: 09/29/2019 10:09 AM. CLINICAL HISTORY: Right flank pain, diaphragm disorder. COMPARISON: CHEST 2 VIEW 07/14/2019 10:36 PM. TECHNIQUE: 2 views. FINDINGS: Lungs/Pleura: No focal opacities evident. No pleural effusion. No pneumothorax. Normal volumes. Persistent elevation of the right hemidiaphragm is noted. Mediastinum: Heart and mediastinal contours are unremarkable. Other: Surgical clips in the right upper quadrant may represent interval cholecystectomy. IMPRESSION: Persistent elevation of the right hemidiaphragm. No acute cardiopulmonary abnormality detected. RADIA
== END 2019-09-29 23:59 | disposition home or self-care (01) ==
LOC: DI.WCP 10:09
PROVIDERS: ATTEND Family Medicine
DX: R10.9 Unspecified abdominal pain (principal); J98.6 Disorders of diaphragm
CPT/HCPCS: 71046

== ENCOUNTER 2019-09-29 11:33 | Outpatient (CLI) | payer MEDICARE ==
[2019-09-29] MEDS ORDERED: IOVERSOL 320 100 ML VIAL IVP ONE ×2 (12:09→13:14)
--- NOTE | 2019-09-29 14:18 | CT Report ---
Reason: FLANK PAIN RT, DIAPHRAGM DISORDER Procedure Date: 09/29/2019 Accession Number: [id number] / [id number] Procedure: CT - ANGIO CHEST W/WO CPT Code: Addended Final Report FULL RESULT: EXAM: CT ANGIOGRAM CHEST EXAM DATE: 09/29/2019 12:48 PM. CLINICAL HISTORY: Right chest pain. Diaphragm disorder. COMPARISON: CHEST W/ 04/29/2018 6:12 PM. TECHNIQUE: Routine helical imaging was performed through the chest in the pulmonary arterial phase. IV Contrast: 80 cc Optiray 320. Reconstructions: Coronal 3-D MIP reconstructions.Sagittal and coronal. In accordance with CT protocol optimization, one or more of the following dose reduction techniques were utilized for this exam: automated exposure control, adjustment of mA and/or KV based on patient size, or use of iterative reconstructive technique. FINDINGS: Diagnostic quality: Adequate. Pulmonary embolism: None to the subsegmental level. Right heart strain: None Pulmonary arteries: Normal in caliber. Heart: Unremarkable Aorta: No aneurysm. Study not adequate to evaluate for dissection secondary to bolus timing. Minimal atherosclerosis in the arch. Central airways: Mild bronchial wall thickening. Lung parenchyma: Again elevation of right hemidiaphragm with mild atelectasis of the right lower lobe. There is scarring in the right middle lobe, left lower lobe and left lingula. No consolidation. There is a 3 minute point a nodule within the right lung apex and a 3 mm bony nodule within the right lower lobe. Pleural effusion: None Pneumothorax: None Adenopathy: None Imaged abdomen: Cholecystectomy. Sidewalls: Unremarkable Bones: No suspicious osseous lesions. IMPRESSION: 1. No pulmonary embolism. 2. Mild bronchial wall thickening. Correlate clinically for infectious or inflammatory bronchitis. 3. There are 2 solid pulmonary nodules measuring up to 3 mm. See below for recommendations. 4. Again elevation of right hemidiaphragm with mild atelectasis of the right lower lobe. RECOMMENDATIONS: Recommend follow-up of the described nodule(s) according to the following guidelines: Fleischner Society Recommendations 2017 RSNA 2017 Solid Nodules-Low Risk Patients: Solid Nodules-High Risk Patients: *Nodules RADIA The call report notification system was initiated by Dr. María Elena Reardon at 02:17 PM on 09/29/2019. ADDENDUM: 09/29/19 14:19 The above call report findings were discussed with Jarad Ag by Dr. María Elena Reardon at 02:19 PM on 09/29/2019.
== END 2019-09-29 11:34 | disposition home or self-care (01) ==
LOC: DI 11:33
PROVIDERS: ATTEND Family Medicine
DX: R91.8 Other nonspecific abnormal finding of lung field (principal); J98.6 Disorders of diaphragm; J98.11 Atelectasis; R10.9 Unspecified abdominal pain
CPT/HCPCS: 36415; 71046; 71275; 80053; 85025; Q9967

== ENCOUNTER 2020-02-14 17:11 | Outpatient (CLI) | payer MEDICARE, OTHER | END 2020-02-14 17:12 | disposition critical access hospital (66) | LOC: EMS 17:11 | PROVIDERS: ATTEND Surgery | DX: R46.4 Slowness and poor responsiveness (principal); M54.5 Low back pain; R51 Headache; W19.XXXA Unspecified fall, initial encounter; Y93.E9 Activity, other interior property and clothing maintenance; Y92.009 Unspecified place in unspecified non-institutional (private) residence as the place of occurrence of the external cause | CPT/HCPCS: A0425; A0429 ==

== ENCOUNTER 2020-02-14 17:20 | Emergency (ER) | payer MEDICARE, OTHER ==
[2020-02-14] MEDS ORDERED: MORPHINE 2 MG/ML CARPUJECT IVP STA (17:39)
--- NOTE | 2020-02-14 17:40 | ED Physician Documentation ---
PD HPI Fall - Stated complaint Stated Complaint: FALL/HEAD INJURY - History obtained from History obtained from: Patient - History of Present Illness Mechanism of injury: Unknown (her heard a thump from next room and went in to find her fallen on floor. question brief LOC but awake and conversant within minute or so. Pain in right thigh and some back/left chest. EMS though there was slight facial droop but no arm/leg weakness. 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 No: Neck pain, Weakness Contributing factors: No: Anticoagulated, Intoxicated Similar symptoms before: Has not had sx before Review of Systems Unable to obtain: Dementia (somewhat poor memory but patient still able to answer fairly well.) Constitutional: denies: Fever, Chills Nose: denies: Rhinorrhea / runny nose, Congestion, Reviewed and negative Throat: denies: Sore throat Respiratory: denies: Cough GI: denies: Abdominal Pain, Vomiting, Diarrhea : denies: Dysuria Skin: denies: Abrasion (s), Laceration (s) Musculoskeletal: reports: Back pain. 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 HEENT: Chronic vision loss, Chronic hearing loss Psych: Depression, Anxiety Musculoskeletal: Osteoarthritis, Chronic back pain Derm: None - Past Surgical History Past Surgical History: Yes General: Colonoscopy, EGD Ortho: Other (left knee surgery) /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, 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 - Present Medications Home Medications: Ambulatory Orders Medication Instructions Recorded Confirmed Citalopram [CeleXA] 40 mg PO DAILY 03/19/13 09/17/19 LORazepam [Ativan] 1 mg PO BID PRN 03/19/13 09/17/19 Cholecalciferol (Vitamin D3) 2,000 unit PO DAILY 03/31/17 09/17/19 [Vitamin D3] Omeprazole 40 mg PO BID 02/05/18 09/17/19 Zolpidem Tartrate [Ambien] 10 mg PO QPM PRN 02/05/18 09/17/19 Levothyroxine Sodium 100 mcg PO DAILY 09/14/19 09/17/19 Hydrocodone/Acetaminophen [[place] 1 each PO Q6H PRN #12 tablet 02/14/20 5-325 Tablet] Naproxen 375 mg PO BID #20 tablet 02/14/20 - Allergies Allergies/Adverse Reactions: Allergies Allergy/AdvReac Type Severity Reaction Status Date / Time Sulfa (Sulfonamide Allergy Severe rash, Verified 02/14/20 17:38 Antibiotics) hives, blood vessel rupture amoxicillin AdvReac Nausea Verified 02/14/20 17:38 aripiprazole [From Abilify] AdvReac Unknown Verified 02/14/20 17:38 - Social History Does the pt smoke?: No Smoking Status: Never smoker Does the pt drink ETOH?: No Does the pt have substance abuse?: No - Immunizations Immunizations are current?: Yes - POLST Patient has POLST: Yes POLST Status: Full Code PD ED PE NORMAL - Vitals Vital signs reviewed: Yes - General General: Alert and oriented X 3, No acute distress, Well developed/nourished - HEENT HEENT: Atraumatic, Moist mucous membranes, Pharynx benign - Neck Neck: Supple, no meningeal sign, No adenopathy - Cardiac Cardiac: RRR, No murmur - Respiratory Respiratory: Clear bilaterally - Abdomen Abdomen: Soft, Non tender - Back Back: No CVA TTP, Other (some tender at thoracolumbar area and left p osterolateral lower ribs area. ) - Derm Derm: Normal color, Warm and dry - Extremities Extremities: No edema, No calf tenderness / cord, Other (some tender anterior right thigh just above the knee. Not tender at hip with rotation nor impaction. 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 No: Alert and oriented X 3 (person and place, but not month/time) Eye Opening: Spontaneous Motor: Obeys Commands Verbal: Oriented GCS Score: 15 - Psych Psych: Normal mood Results - Vitals Vitals: Vital Signs - 24 hr 02/14/20 02/14/20 02/14/20 17:22 17:32 18:02 Temperature 36.7 C Heart Rate 63 52 L 56 L Respiratory 18 18 18 Rate Blood Pressure 157/81 H 126/60 132/84 H O2 Saturation 98 99 98 02/14/20 02/14/20 02/14/20 18:30 19:00 19:30 Temperature Heart Rate 57 L 56 L 60 Respiratory 12 10 L 16 Rate Blood Pressure 111/72 110/64 118/68 O2 Saturation 95 93 98 02/14/20 20:33 Temperature 36.9 C Heart Rate 64 Respiratory 16 Rate Blood Pressure 122/66 O2 Saturation 99 Oxygen O2 Source Room air - EKG (time done) 18:08 Rate: Rate (enter#) (53) Rhythm: Sinus bradycardia [place]: Normal Intervals: Normal ID QRS: Normal Ischemia: Normal ST segments. No: ST elevation c/w ischemia - Labs Labs: Laboratory Tests 02/14/20 02/14/20 17:46 17:46 WBC 8.5 RBC 4.53 Hgb 13.7 Hct 40.1 MCV 88.5 MCH 30.2 MCHC 34.2 RDW 12.1 Plt Count 267 MPV 9.6 Neut # (Auto) 5.9 Lymph # (Auto) 1.7 [place] # (Auto) 0.8 Eos # (Auto) 0.1 Baso # (Auto) 0.0 Absolute Nucleated RBC 0.00 Nucleated RBC % 0.0 Sodium 137 Potassium 3.7 Chloride 105 Carbon Dioxide 24 Anion Gap 8.0 BUN 27 H Creatinine 0.8 Estimated GFR (MDRD) 71 L Glucose 111 H Calcium 8.7 Total Bilirubin 1.5 H AST 23 ALT 16 Alkaline Phosphatase 72 Total Protein 7.5 Albumin 4.0 Globulin 3.5 Albumin/Globulin Ratio 1.1 Lipase 34 - Rads (name of study) head CT Radiology: Prelim report reviewed (no ICH nor acute process. Age related atrophy), See rad report neck CT Radiology: Prelim report reviewed (no fractures), See rad report chest/Abd Radiology: Prelim report reviewed (no fractures, no injury related findings one xam), See rad report right femur Radiology: Prelim report reviewed (no fractures), See rad report PD MEDICAL DECISION MAKING - ED course Complexity details: reviewed results, considered differential (fall with some pains chest, leg without apparent fractures/significant injury. She seems good here. Poor memory, so not clear cause of the fall. ), d/w patient Departure - Departure Disposition: 01 Home, Self Care Clinical Impression: Fall Qualifiers: Encounter type: initial encounter Qualified Code(s): W19.XXXA - Unspecified fall, initial encounter Contusion of right leg Qualifiers: Encounter type: initial encounter Qualified Code(s): S80.11XA - Contusion of right lower leg, initial encounter Chest wall contusion Qualifiers: Encounter type: initial encounter Laterality: left Qualified Code(s): S20.212A - Contusion of left front wall of thorax, initial encounter Condition: Stable Record reviewed to determine appropriate education?: Yes Instructions: ED Contusion Soft Tissue, ED Contusion Chest Wall Follow-Up: Leanne Flores DO [Primary Care Provider] - Prescriptions: Hydrocodone/Acetaminophen [[place] 5-325 Tablet] 1 each PO Q6H PRN #12 tablet PRN Reason: Pain Naproxen 375 mg PO BID #20 tablet Comments: No fractures or organ injury seen on scans of your head neck chest or abdomen and your right thigh. You will be sore from injury in those areas from falling again no fractures. Tylenol or ibuprofen if needed for pains. Add hydrocodone if needed for worse pain. Your basic blood tests appeared normal as well with normal blood count electrolytes kidney function and blood sugar. Recheck if not improved well over the next several days. Discharge Date/Time: 02/14/20 20:41
[2020-02-14] MEDS ORDERED: ONDANSETRON 4 MG/2 ML VIAL IVP STA (17:58)
[2020-02-14 18:03] LABS: BASOPHILS % (AUTO) 0.2 %; EOSINOPHILS # (AUTO) 0.1 10^3/uL (0.0-0.7); EOSINOPHILS % (AUTO) 0.8 %; HGB - HEMOGLOBIN 13.7 g/dL (12.0-16.0); LYMPHOCYTES # (AUTO) 1.7 10^3/uL (1.5-3.5); LYMPHOCYTES % (AUTO) 20.2 %; MEAN CORPUSCULAR HEMOGLOBIN 30.2 pg (27.0-31.0); MEAN CORPUSCULAR HGB CONC 34.2 g/dL (32.0-36.0); MEAN CORPUSCULAR VOLUME 88.5 fL (81.0-99.0); MEAN PLATELET VOLUME 9.6 fL (7.9-10.8); MONOCYTES # (AUTO) 0.8 10^3/uL (0.0-1.0); MONOCYTES % (AUTO) 9.2 %; NEUTROPHILS # (AUTO) 5.9 10^3/uL (1.5-6.6); NEUTROPHILS % (AUTO) 69.1 %; PLT - PLATELET COUNT 267 10^3/uL (130-450); RED BLOOD COUNT 4.53 10^6/uL (4.20-5.40); RED CELL DISTRIBUTION WIDTH 12.1 % (12.0-15.0); WHITE BLOOD COUNT 8.5 x10^3/uL (4.8-10.8)
[2020-02-14] MEDS ORDERED: IOVERSOL 320 100 ML VIAL IVP ONE ×2 (18:08→19:52)
[2020-02-14 18:12] LABS: ALBUMIN/GLOBULIN RATIO 1.1 (1.0-2.2); BILIRUBIN,TOTAL 1.5 mg/dL (0.2-1.0); CALCIUM 8.7 mg/dL (8.5-10.3); CREATININE 0.8 mg/dL (0.4-1.0); TOTAL PROTEIN 7.5 g/dL (6.7-8.2)
--- NOTE | 2020-02-14 19:08 | CT Report ---
Reason: fall with injury head/neck/chest/back Procedure Date: 02/14/2020 Accession Number: [id number] / [id number] Procedure: CT - CERVICAL SPINE WO CPT Code: Final Report FULL RESULT: EXAM: CT CERVICAL SPINE WITHOUT CONTRAST DATE: 02/14/2020 06:41 PM. HISTORY: Fall with injury head/neck/chest/back. COMPARISONS: CERVICAL SPINE W/O 12/11/2018 4:26 PM. TECHNIQUE: Thin-section axial images were acquired of the cervical spine without contrast. Post-processing: Coronal and sagittal reformats. Other: None. In accordance with CT protocol optimization, one or more of the following dose reduction techniques were utilized for this exam: automated exposure control, adjustment of mA and/or KV based on patient size, or use of iterative reconstructive technique. FINDINGS: Alignment: No scoliosis or spondylolisthesis. Bones: No fracture or bone lesion. Musculature: Normal. No fatty atrophy. Other: The paravertebral and prevertebral soft tissues are unremarkable. The lung apices are clear. IMPRESSION: No acute displaced fracture or malalignment in clinical setting of trauma. RADIA
--- NOTE | 2020-02-14 19:19 | CT Report ---
Reason: fall with injury head/neck/chest/back Procedure Date: 02/14/2020 Accession Number: [id number] / [id number] Procedure: CT - HEAD WO CPT Code: Final Report FULL RESULT: EXAM: CT HEAD EXAM DATE: 02/14/2020 06:41 PM. CLINICAL HISTORY: Fall with injury head/neck/chest/back. COMPARISON: CERVICAL SPINE W/O 12/11/2018 4:26 PM HEAD W/O 04/29/2018 6:07 PM. TECHNIQUE: Multiaxial CT images were obtained from the foramen magnum to the vertex. Reformats: Sagittal and coronal. IV contrast: None. In accordance with CT protocol optimization, one or more of the following dose reduction techniques were utilized for this exam: automated exposure control, adjustment of mA and/or KV based on patient size, or use of iterative reconstructive technique. FINDINGS: PARENCHYMA: No acute hemorrhage, transcortical infarction or mass. Periventricular and white matter hypointensities are nonspecific but most consistent with chronic microvascular ischemic changes. EXTRA-AXIAL SPACES: No extra-axial fluid collections. No midline shift. VENTRICLES/SULCI: Enlargement of the lateral and third ventricles with prominence of the cortical sulci consistent with mild cerebral volume loss. VASCULAR STRUCTURES: Arterial calcifications consistent with atherosclerosis. SINUSES: The visible paranasal sinuses and mastoid air cells are unremarkable. ORBITS: Unremarkable. BONES: No displaced acute calvarial fracture. OTHER: None. IMPRESSION: No acute intracranial findings. RADIA
--- NOTE | 2020-02-14 19:21 | CT Report ---
Reason: fall with injury head/neck/chest/back Procedure Date: 02/14/2020 Accession Number: [id number] / [id number] Procedure: CT - CHEST W CPT Code: Final Report FULL RESULT: EXAM: CT CHEST EXAM DATE: 02/14/2020 06:41 PM. CLINICAL HISTORY: Injury to the chest status post trauma during a fall. COMPARISONS: CHEST ANGIO 09/29/2019 12:41 PM. TECHNIQUE: Routine helical CT imaging was performed through the chest. IV contrast: 100 mL Optiray 320. Reconstructions: Coronal and sagittal. In accordance with CT protocol optimization, one or more of the following dose reduction techniques were utilized for this exam: automated exposure control, adjustment of mA and/or KV based on patient size, or use of iterative reconstructive technique. FINDINGS: Lungs/Pleura: Calcified granuloma in the right upper lobe measuring 3.7 mm in diameter. No nodules, bronchial thickening, consolidation or edema. Pulmonary vasculature is normal. No pericardial or pleural effusion. No pneumothorax. Stable broad-based right hemidiaphragm eventration versus right hemidiaphragm elevation. Mediastinum: The thyroid gland is normal. No central obstructing endobronchial lesion. Normal branching pattern of the aorta. Normal caliber of the pulmonary arteries with no central filling defect. No pericardial effusion. No adenopathy or masses. Bones: Multilevel cervical, thoracic and lumbar spondylosis. No acute osseous abnormality. Visualized Abdomen: Surgically absent gallbladder. Compensatory enlargement of the common bile duct measuring 1.8 cm in diameter. Dilation of the main pancreatic duct in the head of the pancreas measuring 5.2 mm in diameter. The remainder is unremarkable. Other: No axillary adenopathy. IMPRESSION: 1. No acute findings in the chest. 2. Right upper lobe calcified granuloma measuring 3.7 mm in diameter. 3. Stable broad-based right hemidiaphragm eventration versus right hemidiaphragm elevation. 4. Surgically absent gallbladder. RADIA
--- NOTE | 2020-02-14 19:21 | CT Report ---
Reason: fall with injury head/neck/chest/back Procedure Date: 02/14/2020 Accession Number: [id number] / [id number] Procedure: CT - Abdomen/Pelvis W CPT Code: Final Report FULL RESULT: EXAM: CT ABDOMEN AND PELVIS EXAM DATE: 02/14/2020 06:41 PM. CLINICAL HISTORY: Fall with injury head/neck/chest/back. COMPARISONS: None. TECHNIQUE: Routine helical CT imaging was performed through the abdomen and pelvis. IV contrast: OPTIRAY 320. Enteric contrast: No. Reconstructions: Coronal and sagittal. In accordance with CT protocol optimization, one or more of the following dose reduction techniques were utilized for this exam: automated exposure control, adjustment of mA and/or KV based on patient size, or use of iterative reconstructive technique. FINDINGS: Lung Bases: Unremarkable. Liver: Normal. No masses. Gallbladder/Bile Ducts: Status post cholecystectomy. Spleen: Normal. Pancreas: Normal. Adrenal Glands: Normal. Kidneys: Normal. No masses or hydronephrosis. Peritoneal Cavity/Bowel: Normal. No free fluid, free air or adenopathy. No masses or acute inflammatory process. The appendix is well visualized and normal. Pelvic Organs: Normal. The bladder and visualized pelvic organs are within normal limits. Vasculature: Mild nonaneurysmal atherosclerotic disease of abdominal aorta. Bones: No significant abnormality. Other: None. IMPRESSION: No acute traumatic abnormality of the abdomen and pelvis. No acute displaced fracture. RADIA
--- NOTE | 2020-02-14 19:31 | XRAY Report ---
Reason: fall with injury to right thigh Procedure Date: 02/14/2020 Accession Number: [id number] / [id number] Procedure: XR - Femur 2V RT CPT Code: Final Report FULL RESULT: EXAM: RIGHT FEMUR RADIOGRAPHY EXAM DATE: 02/14/2020 06:57 PM. CLINICAL HISTORY: Fall with injury to right thigh. COMPARISON: None. TECHNIQUE: 2 views. FINDINGS: Bones: Normal. No fracture or bone lesion. Joints: The visualized hip and knee joints are normal. No effusions. Soft Tissues: Normal. No soft tissue swelling. IMPRESSION: No acute displaced fracture. RADIA
[2020-02-14] MEDS ORDERED: HYDROcod/ACETAM 5/325 MG TABLET PO STA (20:21)
[2020-02-14 20:34] VITALS: BP 122/66
== END 2020-02-14 20:41 | disposition home or self-care (01) ==
LOC: EDUNIT# → ED 17:20
DX: S80.11XA Contusion of right lower leg, initial encounter (principal); S20.212A Contusion of left front wall of thorax, initial encounter; W18.30XA Fall on same level, unspecified, initial encounter
CPT/HCPCS: 36415; 70450; 71260; 72125; 73552; 74177; 80053; 83690; 85025; 93005; 96374; 96375; 99284; A9270; Q9967

== ENCOUNTER 2020-07-17 12:46 | Outpatient (CLI) | payer MEDICARE ==
--- NOTE | 2020-07-17 14:54 | CT Report ---
PROCEDURE: Sinuses INDICATIONS: CHRONIC PANSINUSITIS TECHNIQUE: Noncontrast 3.0 mm axial images acquired from the frontal sinuses to the mid-sella, with coronal and sagittal reformats. For radiation dose reduction, the following was used: automated exposure control , adjustment of mA and/or kV according to patient size. COMPARISON: None. FINDINGS: Image quality: Excellent. Maxillary Sinuses: No bony remodeling or destruction. Sinuses are clear. Ethmoid Air Cells: No bony remodeling or destruction. Sinuses are clear. Sphenoid Sinuses: No bony remodeling or destruction. Sinuses are clear. Frontal Sinuses: No bony remodeling or destruction. Sinuses are clear. Ostiomeatal Complexes: Ostiomeatal complexes are patent. No Cecelia cells. Miscellaneous: Visualized intra-orbital contents are normal. There is a small right-sided yonis bul losa and the nasal turbinates are prominent in size with secondary bilateral mild nasal airway stenos is. No nasal septal deviation. IMPRESSION: No active inflammation seen. Relatively prominent nasal turbinates with a small right-sided conchal b ullosa and secondary mild nasal airway stenosis is present bilaterally, chronic in appearance. Reviewed by: Sandor Lira MD on 07/17/2020 2:52 PM PDT Approved by: Sandor Lira MD on 07/17/2020 2:52 PM PDT Station ID: [id number]
== END 2020-07-17 12:47 | disposition home or self-care (01) ==
LOC: DI 12:46
PROVIDERS: ATTEND Otolaryngology Facial Plastic Surgery
DX: J32.4 Chronic pansinusitis (principal); J30.89 Other allergic rhinitis
CPT/HCPCS: 70486

== ENCOUNTER 2020-08-06 08:00 | Outpatient (CLI) | payer MEDICARE | END 2020-08-06 23:59 | disposition home or self-care (01) | LOC: LAB.R 08:00 | PROVIDERS: ATTEND Family Medicine | DX: R05 Cough (principal); Z20.828 Contact with and (suspected) exposure to other viral communicable diseases ==

== ENCOUNTER 2020-10-01 14:27 | Outpatient (CLI) | payer MEDICARE ==
[2020-10-01] MEDS ORDERED: GADOBUTROL 7.5 MMOL/7.5 ML VIAL ONE (14:43)
[2020-10-01] MEDS ORDERED: GADOBUTROL 7.5 MMOL/7.5 ML VIAL IVP ONE (15:24)
--- NOTE | 2020-10-01 16:10 | MRI Report ---
PROCEDURE: Brain W/WO INDICATIONS: Memory loss CONTRAST: IV CONTRAST: Gadavist ml: 7 TECHNIQUE: Noncontrast axial T1 spin echo, axial T2 fast spin echo, sagittal and axial FLAIR, coronal T2 fast sp in echo, axial gradient echo, axial diffusion and ADC through the brain. After the administration of contrast, axial and coronal T1 spin echo with fat saturation through the brain. COMPARISON: None. FINDINGS: Image quality: Excellent. CSF spaces: Basal cisterns are patent. No extra-axial fluid collections. Ventricles are normal in size and shape. Brain: No midline shift. No intracranial bleeds or masses. No abnormal intracranial enhancement. There is cerebral volume loss for age. There is periventricular white matter chronic small vessel is chemic change. The brainstem appears normal. Diffusion-weighted images demonstrate no acute ischemi c insults. No chronic ischemic insults. Normal intravascular flow voids are present. Skull and face: Calvarial marrow is normal in signal. Orbits appear normal. Sinuses: Sinuses and mastoids appear clear. IMPRESSION: No acute intracranial finding or abnormal enhancement. Mild global cerebral volume loss and chronic vascular ischemic changes. No regional or lobar predilec tion to the volume loss to indicate a specific neurodegenerative diagnosis. Reviewed by: Elpidio Luna MD on 10/01/2020 4:08 PM PST Approved by: Elpidio Luna MD on 10/01/2020 4:08 PM PST Station ID: [id number]
--- OUTSIDE RECORDS SUMMARY | 2020-10-09 00:21 | EXTERNAL MEDICAL SUMMARY RPT | Continuity of Care Document ---
:1950 Demographics Phone Unavailable Preferred Language Djiboutian Marital Status Unknown Adventist Affiliation Unknown Race Unknown Ethnic Group Unknown Author Organization [facility] Address [address] [place] [address] Phone Care Team Providers Name Role Phone DO Unavailable Unavailable Scheidt Unavailable Unavailable Problems date description facility 2020-07-17 12:46 OTHER ALLERGIC RHINITIS [facility] 2020-07-17 12:46 CHRONIC PANSINUSITIS [facility] 2020-07-18 13:34 OTHER LACK OF COORDINATION [facility] 2020-07-18 13:34 [facility] 13:45 OTHER LACK OF COORDINATION [facility] 2020-07-24 13:45 [facility]25 13:45 OTHER LACK OF COORDINATION [facility] 2020-07-25 13:45 [facility] 2020-08-06 00:00:00 [facility] [place] [facility] 2020-08-06 00:00:00 COVID19 [facility] [place] [facility] 2020-08-06 00:00:00 Acute pharyngitis, unspecified [facility] [place] [facility] 2020-08-06 00:00:00 Cough [facility] [place] [facility] 2020-08-06 00:00:00 Alcohol intake [facility] [place] [facility] 2020-08-06 00:00:00 [facility] in [facility] [place] [facility] 2020-08-06 00:00:00 [facility]related behavior [facility] [place] [facility] 2020-08-06 00:00:00 Tobacco use and exposure [facility] [place] [facility] 2020-08-06 00:00:00 Exercise [facility] 2020-08-06 00:00:00 Details of drug misuse behavior [facility] 2020-08-06 00:00:00 Alcohol use [facility] 2020-08-06 00:00:00 Tobacco smoking status [facility] 2020-08-06 00:00:00 Former smoker [facility] 2020-08-06 08:00 COUGH [facility] 2020-08-06 08:00 CONTACT W AND EXPOSURE TO OTH [facility] VIRAL COMMUNICABLE DISEASES 2020-08-15 14:15 OTHER LACK OF COORDINATION [facility] 2020-08-15 14:15 REPEATED FALLS [facility] 2020-08-19 14:15 OTHER LACK OF COORDINATION [facility] 2020-08-19 14:15 REPEATED FALLS [facility] 2020-08-26 14:15 OTHER LACK OF COORDINATION [facility] 2020-08-26 14:15 REPEATED FALLS [facility] 2020-08-27 00:00:00 TSH WITH REFLEX TO FT4 [facility] 2020-08-27 00:00:00 COMPREHENSIVE METABOLIC PANEL [facility] 2020-08-27 00:00:00 LIPID SCREEN, FASTING [facility] 2020-08-27 00:00:00 TRIIODOTHYRONINE (Free T3) [facility] 2020-08-27 00:00:00 CBC W/Diff/Plt [facility] 2020-09-04 10:45 OTHER LACK OF COORDINATION [facility] 2020-09-04 10:45 REPEATED FALLS [facility] 2020-09-10 14:15 OTHER LACK OF COORDINATION [facility] 2020-09-10 14:15 REPEATED FALLS [facility] 2020-09-11 00:00:00 TSH WITH REFLEX TO FT4 [facility] [place] [facility] 2020-09-11 00:00:00 MRI BRAIN W/WO [facility] [place] [facility] 2020-09-11 00:00:00 COMPREHENSIVE METABOLIC PANEL [facility] [place] [facility] 2020-09-11 00:00:00 LIPIDS SCREEN [facility] [place] [facility] 2020-09-11 00:00:00 VITAMIN B 12 [facility] [place] [facility] 2020-09-11 00:00:00 CBC W/Diff/Plt [facility] [place] [facility] 2020-09-11 00:00:00 RPR [facility] [place] [facility] 2020-09-11 00:00:00 Other seborrheic keratosis [facility] [place] [facility] 2020-09-11 00:00:00 Alcohol intake [facility] [place] [facility] 2020-09-11 00:00:00 Health[facility]related behavior [facility] [place] [facility] 2020-09-11 00:00:00 Tobacco use and exposure [facility] [place] [facility] 2020-09-11 00:00:00 Exercise [facility] [place] [facility] 2020-09-11 00:00:00 Details of drug misuse behavior [facility] [place] [facility] 2020-09-11 00:00:00 Senile hyperkeratosis [facility] [place] [facility] 2020-09-11 00:00:00 What is the highest grade or [facility] level of school you have [place] [facility] completed or the highest degree you have received? 2020-09-11 00:00:00 [facility] use [facility] [place] [facility] 2020-09-11 00:00:00 Tobacco smoking status [facility] [place] [facility] 2020-09-11 00:00:00 Former smoker [facility] [place] [facility] 2020-09-16 13:30 OTHER LACK OF COORDINATION [facility] 2020-09-16 13:30 [facility] 2020-09-24 14:15 OTHER LACK OF COORDINATION [facility] 2020-09-24 14:15 [facility] 2020-10-01 14:27 OTHER [facility] 2020-10-01 14:30 OTHER [facility]IA [facility] 2020-10-03 11:01 OTHER LACK OF COORDINATION [facility] 2020-10-03 11:01 [facility] 2020-10-03 13:45 OTHER LACK OF COORDINATION [facility] 2020-10-03 13:45 REPEATED FALLS [facility] [place] 2020-10-08 13:30 OTHER LACK OF COORDINATION [facility] 2020-10-08 13:30 REPEATED FALLS [facility] Allergies date description facility LISINOPRIL [facility] NITROFURANTOIN MONOHYD/M-CRYST [facility] Sulfa (Sulfonamide Antibiotics) [facility] amoxicillin [facility] aripiprazole [facility] penicillin [facility] ADHESIVE \T\ TAPE [facility] AMOXICILLIN [facility] ATORVASTATIN [facility] CHLORTHALIDONE [facility] CODEINE [facility] EZETIMIBE [facility] GABAPENTIN [facility] GATIFLOXACIN [facility] HYDRO[facility]OTH[facility]ZIDE [facility] NITROFURANTOIN [facility] POISON OAK EXTRACT [facility] PREGABALIN [facility] SULFAMETHOXAZOLE W/TRIMETHOPRIM [facility] (CO-TRIMOXAZOLE) SULFAMETHOXAZOLE-TRIMETHOPRIM [facility] DICYCLOMINE HCL [facility] NO KNOWN ENVIRONMENTAL ALLERGIES [facility] PENICILLINS [facility] S[facility]FA [facility]OTICS [facility] CODEINE [facility]ONE [facility] PENICILLIN [facility] SULFA (SULFONAMIDE ANTIBIOTICS) [facility] NO KNOWN ALLERGIES [facility] NO ALLERGY INFORMATION AVAILABLE [facility] PENICILLINS [facility] SULFA (SULFONAMIDE ANTIBIOTICS) [facility] IODINATED CONTRAST MEDIA [facility] NO KNOWN ALLERGIES [facility] LATEX [facility] PREGABALIN [facility] MORPHINE [facility] CODEINE [facility] ACETAMINOPHEN [facility] IBUPROFEN [facility] LACTOSE [facility] PENICILLIN V POTASSIUM [facility] CEPHALEXIN [facility] METRONIDAZOLE [facility] GABAPENTIN [facility] PHENAZOPYRIDINE [facility] LATEX [facility] HYDROCODONE-ACETAMINOPHEN [facility] ADHESIVE TAPE-SILICONES [facility] Sulfa (Sulfonamide Antibiotics) [facility] cephalexin [facility] amoxicillin [facility] ondansetron [facility] aripiprazole [facility] Medications date description facility null [facility] [place] [facility] null [facility] [place] [facility] ZOLPIDEM TARTRATE [facility] [place] [facility] ZOLPIDEM TARTRATE [facility] [place] [facility] 2020-07-31 00:00:00 null [facility] [place] [facility] 2020-07-31 00:00:00 null [facility] [place] [facility] 2020-07-31 00:00:00 DICLOFENAC SODIUM [facility] [place] [facility] 2020-07-31 00:00:00 DICLOFENAC SODIUM [facility] [place] [facility] Procedures date description facility 2020-08-06 00:00:00 COVID19 Testing [facility] [place] [facility] date description facility 2020-08-06 00:00:00 POC STREP ASSAY W/OPTIC [facility] [place] [facility] date description facility 2020-08-06 00:00:00 [facility] [place] [facility] date description facility 2020-08-27 00:00:00 CBC W/Diff/Plt [facility] [place] [facility] date description facility 2020-08-27 00:00:00 [facility] [place] [facility] date description facility 2020-09-11 00:00:00 MRI BRAIN W/WO [facility] [place] [facility] date description facility 2020-09-11 00:00:00 [facility] [place] [facility] Results test status date ordered by attending specimen norberto e null F 2020-08-06 SCHE.01 Judye Scheidt 19:23:00 14:34:00 facility observation status value reference units lab abnor mal line notes range code [facility] F NEGATIVE unknown See [facility] s eparate report - Report scanned to Patient' s EMR. Testing performe d at [facility] test status date ordered by attending specimen norberto e T unknown 2020-08-06 unknown unknown unknown 00:00:00 COVID-19_REFEREN unknown 2020-08-06 unknown unknown unkno wn CE_TEST 00:00:00 Microbial_identi unknown 2020-08-06 unknown unknown unkno wn fication_kit_rapi 00:00:00 d_strep_method Streptococcus_py unknown 2020-08-06 unknown unknown unkno wn ogenes_DNA_Presen 00:00:00 ce_in_Throat_by_N AA_with_probe_det ection _2019NCoV_COVID- unknown 2020-08-06 unknown unknown unkno wn 19_Lab_Test_Resul 00:00:00 t_Text_ facility observation status value reference units lab abnor mal line range code notes [facility] T unknown NEGATIVE unknown COVI unkn own unknown [facility] D-19 [place] [facility] COVID-19_REF unknown NEGATIVE unknown COVI unknown unknown [facility] Care ERENCE_TEST D19.R [place] [facility] EF [facility] Microbial_id unknown Neg unknown _355 unknown unknown [facility] entification_ 4 [place] [facility] kit_rapid_str ep_method [facility] Streptococcu unknown Neg unknown _604 unknown unknown [facility] s_pyogenes_DN 89-2 [place] [facility] A_Presence_in _Throat_by_NA A_with_probe_ detection [facility] _2019NCoV_CO unknown NEGATIVE unknown _665 unknown unknown [facility] Care VID-19_Lab_Te [address] [place] [facility] [address]_Result_Tex t_ Social History date description facility 2020-08-06 00:00:00 Former smoker [facility] [place] [facility] date description facility 2020-09-11 00:00:00 Former smoker [facility] [place] [facility] Social History date description facility 2020-08-06 00:00:00 [facility] [place] [facility] date description facility 2020-09-11 00:00:00 [facility] [place] [facility] date description facility [id number]
== END 2020-10-01 14:28 | disposition home or self-care (01) ==
LOC: DI 14:27
PROVIDERS: ATTEND Family Medicine
DX: R41.3 Other amnesia (principal)
CPT/HCPCS: 70553; A9585

== ENCOUNTER 2020-11-20 07:00 | Outpatient (CLI) | payer MEDICARE ==
[2020-11-21 19:54] LABS: BACTERIAL VAGINOSIS DNA NEGATIVE (NEGATIVE); CANDIDA GLABRATA DNA NEGATIVE (NEGATIVE); CANDIDA GROUP DNA NEGATIVE (NEGATIVE); CANDIDA KRUSEI DNA NEGATIVE (NEGATIVE); TRICHOMONAS VAGINALIS DNA NEGATIVE (NEGATIVE)
== END 2020-11-21 23:59 | disposition home or self-care (01) ==
LOC: LAB.R 07:00
PROVIDERS: ATTEND Family Medicine
DX: R10.2 Pelvic and perineal pain (principal)
CPT/HCPCS: 87661; 87801

== ENCOUNTER 2021-03-12 14:27 | Outpatient (CLI) | payer MEDICARE ==
--- NOTE | 2021-03-12 17:12 | XRAY Report ---
PROCEDURE: Hip w/Pelvis 1V RT INDICATIONS: R HIP PX TECHNIQUE: AP pelvis with lateral view(s) of the right hip(s). COMPARISON: None. FINDINGS: Bones: No fractures or dislocations. Pelvic ring appears intact. No suspicious bony lesions. Ther e is moderate to severe left and moderate right degenerative hip joint space narrowing. Paratracheal or osteophytes are present without erosions. Degenerative changes are present within the lower lumbar spine. Soft tissues: The visualized bowel gas pattern is normal. No suspicious soft tissue calcifications. IMPRESSION: Arthritic changes within the hips bilaterally, left greater than right as above. Reviewed by: Geneva Werner MD on 03/12/2021 5:11 PM PDT Approved by: Geneva Werner MD on 03/12/2021 5:11 PM PDT Station ID: [id number]
--- NOTE | 2021-03-12 17:13 | XRAY Report ---
PROCEDURE: Shoulder 2 View RT INDICATIONS: R SHOULDER PX TECHNIQUE: 2 views of the shoulder were acquired. COMPARISON: None. FINDINGS: Bones: No fractures or dislocations. No suspicious bony lesions. Visualized ribs appear intact. S evere acromioclavicular degenerative narrowing is present. There is a high riding appearance of the h umeral head. Soft tissues: No suspicious soft tissue calcifications. IMPRESSION: 1. High riding humeral head which can be seen with rotator cuff pathology. 2. Severe acromioclavicular degenerative narrowing. Reviewed by: Geneva Werner MD on 03/12/2021 5:11 PM PDT Approved by: Geneva Werner MD on 03/12/2021 5:11 PM PDT Station ID: [id number]
== END 2021-03-12 14:28 | disposition home or self-care (01) ==
LOC: DI.N 14:27
PROVIDERS: ATTEND Family Medicine
DX: M16.0 Bilateral primary osteoarthritis of hip (principal); M19.011 Primary osteoarthritis, right shoulder; R93.6 Abnormal findings on diagnostic imaging of limbs; E78.5 Hyperlipidemia, unspecified; K31.84 Gastroparesis; E03.9 Hypothyroidism, unspecified; M25.511 Pain in right shoulder
CPT/HCPCS: 36415; 80053; 80061; 83690; 83721; 84439; 84443; 85025; 85651; 86140

== ENCOUNTER 2021-03-12 14:32 | Outpatient (CLI) | payer MEDICARE ==
[2021-03-12 17:36] LABS: BASOPHILS % (AUTO) 0.3 %; EOSINOPHILS # (AUTO) 0.1 10^3/uL (0.0-0.7); EOSINOPHILS % (AUTO) 1.2 %; HCT - HEMATOCRIT 43.4 % (37.0-47.0); HGB - HEMOGLOBIN 14.4 g/dL (12.0-16.0); LYMPHOCYTES % (AUTO) 25.1 %; MEAN CORPUSCULAR HGB CONC 33.2 g/dL (32.0-36.0); MEAN CORPUSCULAR VOLUME 90.4 fL (81.0-99.0); MEAN PLATELET VOLUME 10.1 fL (7.9-10.8); MONOCYTES # (AUTO) 0.6 10^3/uL (0.0-1.0); MONOCYTES % (AUTO) 7.4 %; NEUTROPHILS # (AUTO) 5.1 10^3/uL (1.5-6.6); NEUTROPHILS % (AUTO) 65.5 %; PLT - PLATELET COUNT 328 10^3/uL (130-450); RED CELL DISTRIBUTION WIDTH 12.5 % (12.0-15.0); WHITE BLOOD COUNT 7.8 x10^3/uL (4.8-10.8)
[2021-03-12 17:55] LABS: ALBUMIN 4.7 g/dL (3.2-5.5); ALBUMIN/GLOBULIN RATIO 1.3 (1.0-2.2); ALKALINE PHOSPHATASE 69 IU/L (42-121); ALT ALANINE AMINOTRANSFERASE 25 IU/L (10-60); AST ASPARTATE AMINOTRANSFERASE 24 IU/L (10-42); BILIRUBIN,TOTAL 1.5 mg/dL (0.2-1.0); BUN - BLOOD UREA NITROGEN 30 mg/dL (6-20); CALCIUM 9.3 mg/dL (8.5-10.3); CARBON DIOXIDE - CO2 27 mmol/L (21-32); CHLORIDE 103 mmol/L (101-111); CHOL/HDL RATIO 4.7 (<4.4); CHOLESTEROL 274 mg/dL; CREATININE 0.7 mg/dL (0.4-1.0); GFR - MDRD 83 (>89); GLUCOSE 95 mg/dL (70-100); HDL CHOLESTEROL 58 mg/dL; LDL CHOLESTEROL,CALCULATED 185 mg/dL; LDL/HDL RATIO 3.2 (<4.4); LIPASE 28 U/L (22-51); POTASSIUM 4.5 mmol/L (3.5-5.0); SODIUM 138 mmol/L (135-145); TOTAL PROTEIN 8.3 g/dL (6.7-8.2); TRIGLYCERIDES 153 mg/dL; VLDL CHOLESTEROL 31 mg/dL
[2021-03-12 18:04] LABS: THYROID STIMULATING HORMONE 6.26 uIU/mL (0.34-5.60)
[2021-03-12 18:33] LABS: CRP - C-REACTIVE PROTEIN < 1.0 mg/dL (0-1.0)
[2021-03-12 19:49] LABS: FREE T4 (FREE THYROXINE) 1.11 ng/dL (0.58-1.64)
== END 2021-03-12 14:33 | disposition home or self-care (01) ==
LOC: LAB.N 14:32
PROVIDERS: ATTEND Family Medicine
DX: E78.5 Hyperlipidemia, unspecified (principal); K31.84 Gastroparesis; E03.9 Hypothyroidism, unspecified; M25.511 Pain in right shoulder
CPT/HCPCS: 36415; 80053; 80061; 83690; 83721; 84439; 84443; 85025; 85651; 86140

== ENCOUNTER 2021-06-03 14:12 | Outpatient (CLI) | payer MEDICARE ==
--- NOTE | 2021-06-03 15:32 | DEXA Report ---
PROCEDURE: Dexa Spine and/or Hip INDICATIONS: DISORDERS OF BONE DENSITY AND STRUCTURE TECHNIQUE: Dual energy x-ray absorptiometry (DXA) was performed on a [employer] System. Regions measur ed are the AP Spine, femoral neck, and if needed forearm. COMPARISON: None. FINDINGS: Lumbar Spine: Bone Mineral Density 0.973 g/cm/cm,T score -1.7, osteopenia Left Femoral Neck: Bone Mineral Density 0.740 g/cm/cm, T score -2.1, osteopenia (T score greater or equal to -1.0: NORMAL) (T score from -1.1 to -2.4: OSTEOPENIA) (T score less than or equal to -2.5 to: OSTEOPOROSIS) Impression: Osteopenia. Patients with diagnosis of osteoporosis or osteopenia should have regular bone mineral density assess ment. For those eligible for Medicare, routine testing is allowed once every 2 years. Testing frequ ency can be increased for patients who have rapidly progressing disease or for those who are receivin g medical therapy to restore bone mass. Reviewed by: Sony Aquino MD on 06/03/2021 3:31 PM PDT Approved by: Sony Aquino MD on 06/03/2021 3:31 PM PDT Station ID: [id number]
== END 2021-06-03 14:13 | disposition home or self-care (01) ==
LOC: DI 14:12
PROVIDERS: ATTEND Family Medicine
DX: M85.89 Other specified disorders of bone density and structure, multiple sites (principal)

== ENCOUNTER 2021-06-13 12:29 | Outpatient (CLI) | payer MEDICARE ==
--- NOTE | 2021-06-25 09:58 | Mammography Report ---
BILATERAL DIGITAL DIAGNOSTIC MAMMOGRAM 3D/2D: 06/13/2021 CLINICAL: Occasional pain in both breasts. Comparison is made to exams dated: 08/03/2018 mammogram, 08/24/2016 mammogram, 03/12/2015 mammogram, a nd 10/31/2013 mammogram - [facility]. The tissue of both breasts is predominantly fa tty. No significant masses, calcifications, or other findings are seen in either breast. IMPRESSION: NEGATIVE There is no mammographic evidence of malignancy. A 1 year screening mammogram is recommended. This exam was interpreted at Station ID: [id number]. NOTE: For mammograms, a report in lay terms will be sent to the patient. Approximately 15% of breast malignancies will not be visualized mammographically. In the management of a palpable breast mass, a negative mammogram must not discourage biopsy of a clinically suspicious lesion. Electronically Signed By: Elpidio Luna M.D., jr/cali:06/25/2021 09:37:52 ACR BI-RADS Category 1: Negative 3341F PARENCHYMAL PATTERN: (F) - The breast(s) demonstrate(s) diffuse fatty replacement. BI-RADS CATEGORY: (1) - 1 RECOMMENDATION: (ANNUAL) - Recommend routine annual screening mammography. [id number] 1 year screening LATERALITY: (B)
== END 2021-06-13 12:30 | disposition home or self-care (01) ==
LOC: DI 12:29
PROVIDERS: ATTEND Family Medicine
DX: N64.4 Mastodynia (principal)

== ENCOUNTER 2021-08-08 11:23 | Outpatient (CLI) | payer MEDICARE | END 2021-08-08 23:59 | LOC: LAB.N 11:23 | PROVIDERS: ATTEND Family Medicine | DX: R30.0 Dysuria (principal) | CPT/HCPCS: 87086 ==

== ENCOUNTER 2021-12-17 10:52 | Outpatient (CLI) | payer MEDICARE ==
--- NOTE | 2021-12-17 14:19 | Ultrasound Report ---
PROCEDURE: Abdomen Complete INDICATIONS: ABN LIVER FUNCTION TEST, GASTRITIS TECHNIQUE: Real-time scanning was performed of the abdominal and retroperitoneal organs, with image documentatio n. COMPARISON: None. FINDINGS: Liver: Liver is normal in size and homogeneous in echotexture. Gallbladder: Surgically absent Biliary ducts: Intrahepatic bile ducts are non-dilated. Extrahepatic bile duct caliber measures 8.9 mm. Normal is 6-7 mm or less in diameter, or 10 mm or less post-cholecystectomy. Pancreas: Pancreatic ductal dilatation is present measuring 4 mm. Pancreatic tail is not well seen. V isualized portions of the pancreas are otherwise sonographically normal. Spleen: Spleen is normal in size and homogeneous in echotexture. Kidneys: Kidneys are normal in size and echotexture. Right kidney measures 10.4 cm long; left kidne y measures 10.2 cm long. No hydronephrosis or nephrolithiasis. No solid masses. Aorta: Visualized aorta is normal in caliber at less than 3 cm. Iliacs: Proximal common iliac arteries are normal in caliber at less than 2.5 cm. IVC: Intrahepatic inferior vena cava is patent. Miscellaneous: No free abdominal fluid. IMPRESSION: 1. Dilatation of the pancreatic duct. Initial further assessment with ERCP is recommended. 2. No acute process. 3. Post surgical sequelae. Reviewed by: Jean Claude Metcalf MD on 12/17/2021 2:17 PM PDT Approved by: Jean Claude Metcalf MD on 12/17/2021 2:17 PM PDT Station ID: [id number]
== END 2021-12-17 10:53 | disposition home or self-care (01) ==
LOC: DI 10:52
PROVIDERS: ATTEND Family Medicine
DX: K86.89 Other specified diseases of pancreas (principal)

== ENCOUNTER 2022-01-09 08:00 | Outpatient (CLI) | payer MEDICARE ==
[2022-01-09 12:15] LABS: ALBUMIN 4.5 g/dL (3.2-5.5); BILIRUBIN,DIRECT 0.2 mg/dL (0.1-0.5); BILIRUBIN,TOTAL 1.8 mg/dL (0.2-1.0); TOTAL PROTEIN 8.4 g/dL (6.7-8.2)
== END 2022-01-09 08:01 | disposition home or self-care (01) ==
LOC: LAB 08:00
PROVIDERS: ATTEND Physician Assistant
DX: K86.9 Disease of pancreas, unspecified (principal); R10.30 Lower abdominal pain, unspecified
CPT/HCPCS: 36415; 80076; 83690

== ENCOUNTER 2022-01-19 12:27 | Outpatient (CLI) | payer MEDICARE ==
--- NOTE | 2022-01-20 06:30 | MRI Report ---
PROCEDURE: MRCP W/O INDICATIONS: DILATED COMMON BILE DUCT TECHNIQUE: Coronal ultra fast SE through the abdomen, axial 2-D spoiled GE in- and [id number], and breath-hold T2 FSE with fat saturation through the biliary system and pancreas. Oblique coronal and axial thin- slice ultra fast SE, radial thick-slab ultra fast SE centered on the extrahepatic bile ducts. COMPARISON: Ultrasound abdomen 11/26/21, CT abdomen pelvis 02/14/2020 FINDINGS: Image quality: There is mild motion artifact. Pancreas and biliary system: The gallbladder is surgically absent. There is mild intrahepatic biliar y dilatation. The common hepatic duct is distended, measuring up to 1.0 cm. The common bile duct edinson ures up to 0.8 cm. No discrete filling defects to suggest choledocholithiasis. No discrete obstructin g mass identified in the absence of intravenous contrast. The pancreatic duct is nondistended. No dis crete pancreatic masses and 5 in the absence of intravenous contrast. No peripancreatic edema or flui d collections. Other solid organs: Noncontrast evaluation of the liver demonstrates no discrete mass. No adrenal nod ules. Spleen is normal in size. Kidneys demonstrate no hydronephrosis. There is a small right renal c yst. Nodes and vessels: No retroperitoneal or mesenteric adenopathy by size criteria. Aorta and inferior vena cava are normal in size. Bowel and peritoneum: Visualized bowel loops are normal in caliber. No free fluid. Lung bases: No basal pleural effusions. Heart size is normal. Bones and soft tissues: No ventral hernias. Bone marrow is of normal overall signal. IMPRESSION: 1. Intra and extrahepatic biliary ductal dilatation without definite evidence of choledocholithiasis. No discrete mass identified in the absence of intravenous contrast. The findings may reflect sequela e of ampullary stenosis or stricture, but the differential includes a nonvisualized mass. Recommend c orrelation with laboratory values and if indicated consider a follow-up study with contrast. Reviewed by: Bipin Cade MD on 01/20/2022 6:29 AM PDT Approved by: Bipin Cade MD on 01/20/2022 6:29 AM PDT Station ID: [id number]
== END 2022-01-19 12:28 | disposition home or self-care (01) ==
LOC: DI 12:27
PROVIDERS: ATTEND Family Medicine
DX: K83.8 Other specified diseases of biliary tract (principal); K86.9 Disease of pancreas, unspecified

== ENCOUNTER 2022-07-27 12:09 | Outpatient (CLI) | payer MEDICARE ==
[2022-07-27 12:24] LABS: BASOPHILS % (AUTO) 0.3 %; EOSINOPHILS # (AUTO) 0.1 10^3/uL (0.0-0.7); EOSINOPHILS % (AUTO) 1.7 %; HGB - HEMOGLOBIN 14.7 g/dL (12.0-16.0); LYMPHOCYTES # (AUTO) 1.8 10^3/uL (1.5-3.5); LYMPHOCYTES % (AUTO) 31.2 %; MEAN CORPUSCULAR HGB CONC 33.4 g/dL (32.0-36.0); MEAN CORPUSCULAR VOLUME 89.8 fL (81.0-99.0); MEAN PLATELET VOLUME 9.4 fL (7.9-10.8); MONOCYTES # (AUTO) 0.5 10^3/uL (0.0-1.0); MONOCYTES % (AUTO) 8.1 %; NEUTROPHILS # (AUTO) 3.4 10^3/uL (1.5-6.6); NEUTROPHILS % (AUTO) 58.4 %; PLT - PLATELET COUNT 300 10^3/uL (130-450); RED CELL DISTRIBUTION WIDTH 12.1 % (12.0-15.0); WHITE BLOOD COUNT 5.8 x10^3/uL (4.8-10.8)
[2022-07-27 12:45] LABS: ALBUMIN 4.5 g/dL (3.2-5.5); ALBUMIN/GLOBULIN RATIO 1.3 (1.0-2.2); ALKALINE PHOSPHATASE 74 IU/L (42-121); ALT ALANINE AMINOTRANSFERASE 18 IU/L (10-60); AST ASPARTATE AMINOTRANSFERASE 21 IU/L (10-42); BILIRUBIN,TOTAL 1.4 mg/dL (0.2-1.0); BUN - BLOOD UREA NITROGEN 19 mg/dL (6-20); CALCIUM 9.7 mg/dL (8.5-10.3); CARBON DIOXIDE - CO2 26 mmol/L (21-32); CHLORIDE 105 mmol/L (101-111); CHOL/HDL RATIO 2.6 (<4.4); CHOLESTEROL 158 mg/dL; CREATININE 0.8 mg/dL (0.4-1.0); GFR - MDRD 71 (>89); GLUCOSE 110 mg/dL (70-100); HDL CHOLESTEROL 60 mg/dL; LDL CHOLESTEROL,CALCULATED 79 mg/dL; LDL/HDL RATIO 1.3 (<4.4); POTASSIUM 4.1 mmol/L (3.5-5.0); SODIUM 139 mmol/L (135-145); TOTAL PROTEIN 7.9 g/dL (6.7-8.2); TRIGLYCERIDES 93 mg/dL; VLDL CHOLESTEROL 19 mg/dL
[2022-07-27 12:53] LABS: THYROID STIMULATING HORMONE 1.87 uIU/mL (0.34-5.60)
== END 2022-07-27 12:10 | disposition home or self-care (01) ==
LOC: LAB 12:09
PROVIDERS: ATTEND Family Medicine
DX: E03.9 Hypothyroidism, unspecified (principal); K83.8 Other specified diseases of biliary tract; R13.14 Dysphagia, pharyngoesophageal phase; K29.70 Gastritis, unspecified, without bleeding; R29.6 Repeated falls; R41.3 Other amnesia; R26.81 Unsteadiness on feet; F41.9 Anxiety disorder, unspecified; F32.A Depression, unspecified
CPT/HCPCS: 36415; 80053; 80061; 83721; 84443; 85025

== ENCOUNTER 2022-07-30 13:09 | Outpatient (CLI) | payer MEDICARE ==
--- NOTE | 2022-07-30 15:31 | MRI Report ---
PROCEDURE: PELVIS WO INDICATIONS: SACROILIAC JOINT DISORDER TECHNIQUE: Noncontrast coronal T1 spin echo and STIR through the bony pelvis. Sagittal T2 FSE with fat saturati on, oblique axial PD FSE and T2 FSE with fat saturation through the symphysis pubis. COMPARISON: None. FINDINGS: Image quality: Excellent. Bones and joints: Joint space narrowing and subchondral sclerosis are noted in bilateral sacroiliac j oints. Subtle marrow edema involving left and iliac bone adjacent to sacroiliac joint is seen concern ing for subtle erosion. No ankylosis is noted. Right worse than left bilateral hip joint osteoarthrit ic changes are seen with superior joint space narrowing, subchondral sclerosis and marginal osteophyt e formation. Subcortical cystic area involving weight-bearing portion of right femoral head is seen. No evidence of avascular necrosis of femoral head. Visualized lower lumbar spine is normally aligned. Soft tissues: There is no precervical soft tissue abnormality. No pelvic free fluid. Bladder wall thi ckness is normal. No gross muscle or tendon signal abnormality is seen in pelvis and bilateral hip. IMPRESSION: 1. Suggestion of left worse than right bilateral sacroiliitis with possible subtle erosion involving left iliac bone adjacent to sacroiliac joint. No gross ankylosis is seen. 2. Right worse than left bilateral hip joint osteoarthritis. No fracture or dislocation. No evidence of avascular necrosis of femoral head. 3. No gross pelvic soft tissue abnormalities. Reviewed by: Adilson Landry MD on 07/30/2022 3:30 PM PDT Approved by: Adilson Landry MD on 07/30/2022 3:30 PM PDT Station ID: [id number]
== END 2022-07-30 13:10 | disposition home or self-care (01) ==
LOC: DI 13:09
PROVIDERS: ATTEND Family Medicine
DX: M16.0 Bilateral primary osteoarthritis of hip (principal)

== ENCOUNTER 2022-11-23 10:00 | Outpatient (CLI) | payer MEDICARE ==
[2022-11-23 22:41] LABS: BACTERIAL VAGINOSIS DNA NEGATIVE (NEGATIVE); CANDIDA GLABRATA DNA NEGATIVE (NEGATIVE); CANDIDA GROUP DNA NEGATIVE (NEGATIVE); CANDIDA KRUSEI DNA NEGATIVE (NEGATIVE); TRICHOMONAS VAGINALIS DNA NEGATIVE (NEGATIVE)
== END 2022-11-23 10:15 | disposition home or self-care (01) ==
LOC: LAB.N 10:00
PROVIDERS: ATTEND Physician Assistant
DX: R32 Unspecified urinary incontinence (principal)
CPT/HCPCS: 81514

== ENCOUNTER 2023-04-11 11:40 | Outpatient (CLI) | payer MEDICARE ==
[2023-04-11 12:08] LABS: BASOPHILS % (AUTO) 0.5 %; EOSINOPHILS # (AUTO) 0.1 10^3/uL (0.0-0.7); EOSINOPHILS % (AUTO) 1.9 %; HCT - HEMATOCRIT 43.9 % (37.0-47.0); HGB - HEMOGLOBIN 14.8 g/dL (12.0-16.0); LYMPHOCYTES # (AUTO) 1.9 10^3/uL (1.5-3.5); LYMPHOCYTES % (AUTO) 29.3 %; MEAN CORPUSCULAR HEMOGLOBIN 29.8 pg (27.0-31.0); MEAN CORPUSCULAR HGB CONC 33.7 g/dL (32.0-36.0); MEAN CORPUSCULAR VOLUME 88.5 fL (81.0-99.0); MEAN PLATELET VOLUME 9.5 fL (7.9-10.8); MONOCYTES # (AUTO) 0.5 10^3/uL (0.0-1.0); NEUTROPHILS # (AUTO) 3.9 10^3/uL (1.5-6.6); NEUTROPHILS % (AUTO) 59.8 %; PLT - PLATELET COUNT 292 10^3/uL (130-450); RED BLOOD COUNT 4.96 10^6/uL (4.20-5.40); RED CELL DISTRIBUTION WIDTH 12.1 % (12.0-15.0); WHITE BLOOD COUNT 6.5 x10^3/uL (4.8-10.8)
[2023-04-11 12:15] LABS: ALBUMIN 4.2 g/dL (3.2-5.5); ALBUMIN/GLOBULIN RATIO 1.1 (1.0-2.2); ALKALINE PHOSPHATASE 70 IU/L (42-121); ALT ALANINE AMINOTRANSFERASE 19 IU/L (10-60); AST ASPARTATE AMINOTRANSFERASE 20 IU/L (10-42); BILIRUBIN,TOTAL 1.5 mg/dL (0.2-1.0); BUN - BLOOD UREA NITROGEN 24 mg/dL (6-20); CALCIUM 9.4 mg/dL (8.5-10.3); CARBON DIOXIDE - CO2 23 mmol/L (21-32); CHLORIDE 106 mmol/L (101-111); CHOL/HDL RATIO 2.6 (<4.4); CHOLESTEROL 170 mg/dL; CREATININE 0.8 mg/dL (0.4-1.0); GFR - MDRD 71 (>89); GLUCOSE 121 mg/dL (70-100); HDL CHOLESTEROL 66 mg/dL; LDL CHOLESTEROL,CALCULATED 86 mg/dL; LDL/HDL RATIO 1.3 (<4.4); POTASSIUM 4.1 mmol/L (3.5-5.0); SODIUM 138 mmol/L (135-145); TOTAL PROTEIN 7.9 g/dL (6.7-8.2); TRIGLYCERIDES 89 mg/dL; VLDL CHOLESTEROL 18 mg/dL
[2023-04-11 12:27] LABS: THYROID STIMULATING HORMONE 5.67 uIU/mL (0.34-5.60)
[2023-04-11 13:10] LABS: FREE T4 (FREE THYROXINE) 0.99 ng/dL (0.58-1.64)
== END 2023-04-11 11:41 | disposition home or self-care (01) ==
LOC: LAB 11:40
PROVIDERS: ATTEND Family Medicine
DX: E78.5 Hyperlipidemia, unspecified (principal); E03.9 Hypothyroidism, unspecified; K29.70 Gastritis, unspecified, without bleeding
CPT/HCPCS: 36415; 80053; 80061; 83721; 84439; 84443; 85025

== ENCOUNTER 2023-06-16 23:16 | Emergency (ER) | payer MEDICARE ==
[2023-06-16 23:54] LABS: BASOPHILS % (AUTO) 0.3 %; EOSINOPHILS # (AUTO) 0.1 10^3/uL (0.0-0.7); EOSINOPHILS % (AUTO) 0.8 %; HCT - HEMATOCRIT 44.7 % (37.0-47.0); HGB - HEMOGLOBIN 15.1 g/dL (12.0-16.0); LYMPHOCYTES # (AUTO) 1.6 10^3/uL (1.5-3.5); LYMPHOCYTES % (AUTO) 17.2 %; MEAN CORPUSCULAR HEMOGLOBIN 29.9 pg (27.0-31.0); MEAN CORPUSCULAR HGB CONC 33.8 g/dL (32.0-36.0); MEAN CORPUSCULAR VOLUME 88.5 fL (81.0-99.0); MONOCYTES # (AUTO) 0.7 10^3/uL (0.0-1.0); MONOCYTES % (AUTO) 7.1 %; NEUTROPHILS % (AUTO) 74.3 %; PLT - PLATELET COUNT 276 10^3/uL (130-450); RED BLOOD COUNT 5.05 10^6/uL (4.20-5.40); RED CELL DISTRIBUTION WIDTH 12.2 % (12.0-15.0); WHITE BLOOD COUNT 9.4 x10^3/uL (4.8-10.8)
[2023-06-17] MEDS: ONDANSETRON ODT 4 MG TABLET TL STA (00:03)
[2023-06-17 00:11] LABS: ALBUMIN 4.4 g/dL (3.2-5.5); ALBUMIN/GLOBULIN RATIO 1.4 (1.0-2.2); BILIRUBIN,TOTAL 1.9 mg/dL (0.2-1.0); CALCIUM 9.9 mg/dL (8.5-10.3); CREATININE 0.9 mg/dL (0.6-1.3); TOTAL PROTEIN 7.6 g/dL (6.4-8.9)
[2023-06-17 01:56] LABS: BILIRUBIN,URINE NEGATIVE (NEGATIVE); GLUCOSE, URINE (UA) NEGATIVE (NEGATIVE); KETONES,URINE (UA) NEGATIVE (NEGATIVE); LEUKOCYTE ESTERASE, URINE NEGATIVE (NEGATIVE); NITRITE,URINE NEGATIVE (NEGATIVE); OCCULT BLOOD,URINE NEGATIVE (NEGATIVE); PH,URINE 5.5 PH (5.0-7.5); PROTEIN,URINE NEGATIVE (NEGATIVE); UROBILINOGEN,URINE 0.2 (NORMAL) E.U./dL (NORMAL)
[2023-06-17 02:01] LABS: CLARITY,URINE CLEAR (CLEAR)
--- NOTE | 2023-06-17 02:32 | ED Physician Documentation ---
History of Present Illness - Stated complaint Stated Complaint: ABD PX/BLOODY STOOLS - Chief complaint Chief Complaint: Abd Pain - History obtained from History obtained from: Patient, Family () - Additonal information Additional information: 72yF with pmh colitis p/w abdominal pain, nbnb n/v and bloody diarrhea starting today. denies fever but does endorse malaise/chills. denies urinary sx. 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 AUDITOR: None : None HEENT: Chronic vision loss, Chronic hearing loss Psych: Depression, Anxiety Musculoskeletal: Osteoarthritis, Chronic back pain Derm: None - Past Surgical History Past Surgical History: Yes General: Colonoscopy, EGD Ortho: Other (left knee surgery) /INVENTORY AUDITOR: section, 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 - Present Medications Home Medications: Ambulatory Orders Medication Instructions Recorded Confirmed Citalopram [CeleXA] 40 mg PO DAILY 03/19/13 09/17/19 LORazepam [Ativan] 1 mg PO BID PRN 03/19/13 09/17/19 Cholecalciferol (Vitamin D3) 2,000 unit PO DAILY 03/31/17 09/17/19 [Vitamin D3] Omeprazole 40 mg PO BID 02/05/18 09/17/19 Zolpidem Tartrate [Ambien] 10 mg PO QPM PRN 02/05/18 09/17/19 Levothyroxine Sodium 100 mcg PO DAILY 09/14/19 09/17/19 Hydrocodone/Acetaminophen [[place] 1 each PO Q6H PRN #12 tablet 02/14/20 5-325 Tablet] Naproxen 375 mg PO BID #20 tablet 02/14/20 HYDROcod/ACETAM 5/325 [[place] 5/325] 1 ea PO Q6H PRN #18 tablet 05/02/22 Lidocaine Ointment 5% [Xylocaine 1 applic TOP QID #35.44 gm 05/02/22 Ointment 5%] Valacyclovir HCl [Valtrex] 1,000 mg PO TID #20 tablet 05/02/22 dexAMETHasone [Decadron] 4 mg PO DAILY #5 tablet 05/02/22 Ondansetron Odt [Zofran Odt] 4 mg TL Q6H PRN #10 tablet 06/17/23 Oxycodone HCl/Acetaminophen 1 each PO Q4H PRN #8 tablet 06/17/23 [Percocet 5-325 mg Tablet] - Allergies Allergies/Adverse Reactions: Allergies Allergy/AdvReac Type Severity Reaction Status Date / Time Sulfa (Sulfonamide Allergy Severe rash, Verified 06/16/23 23:34 Antibiotics) hives, blood vessel rupture amoxicillin AdvReac Nausea Verified 06/16/23 23:34 aripiprazole [From Abiliy] AdvReac Unknown Verified 06/16/23 23:34 - Social History Does the pt smoke?: No Smoking Status: Never smoker Does the pt drink ETOH?: No Does the pt have substance abuse?: No - Immunizations Immunizations are current?: Yes - POLST Patient has POLST: Yes POLST Status: Full Code PD ED PE NORMAL - Vitals Vital signs reviewed: Yes - General General: Alert and oriented X 3, No acute distress, Well developed/nourished - HEENT HEENT: Atraumatic, PERRL, EOMI, Moist mucous membranes, Pharynx benign - Neck Neck: Supple, no meningeal sign - Cardiac Cardiac: RRR - Respiratory Respiratory: No respiratory distress, Clear bilaterally - Abdomen Abdomen: Non tender, Non distended - Rectal Rectal: Other (bloody mucus stool) - Back Back: No CVA TTP - Derm Derm: Normal color, Warm and dry - Extremities Extremities: No deformity - Neuro Neuro: No motor deficit, No sensory deficit - Psych Psych: Normal mood, Normal affect Results - Vitals Vitals: Vital Signs - 24 hr 06/16/23 06/17/23 23:29 02:35 Temperature 36.6 C Heart Rate 81 61 Respiratory 16 16 Rate Blood Pressure 109/76 113/68 O2 Saturation 97 94 Oxygen O2 Source Room air - Labs Labs: Laboratory Tests 06/16/23 06/16/23 06/17/23 23:48 23:48 01:49 WBC 9.4 RBC 5.05 Hgb 15.1 Hct 44.7 MCV 88.5 MCH 29.9 MCHC 33.8 RDW 12.2 Plt Count 276 MPV 9.0 Neut # (Auto) 7.0 H Lymph # (Auto) 1.6 [place] # (Auto) 0.7 Eos # (Auto) 0.1 Baso # (Auto) 0.0 Absolute Nucleated RBC 0.00 Nucleated RBC % 0.0 Sodium 135 Potassium 4.0 Chloride 102 Carbon Dioxide 24 Anion Gap 9.0 BUN 17 Creatinine 0.9 Estimated GFR (MDRD) 62 L Glucose 106 H Calcium 9.9 Total Bilirubin 1.9 H AST 38 ALT 24 Alkaline Phosphatase 106 Total Protein 7.6 Albumin 4.4 Globulin 3.2 Albumin/Globulin Ratio 1.4 Lipase 42 Urine Color YELLOW Urine Clarity CLEAR Urine pH 5.5 Ur Specific [place] <=1.005 Urine Protein NEGATIVE Urine Glucose (UA) NEGATIVE Urine Ketones NEGATIVE Urine Occult Blood NEGATIVE Urine Nitrite NEGATIVE Urine Bilirubin NEGATIVE Urine Urobilinogen 0.2 (NORMAL) Ur Leukocyte Esterase NEGATIVE Ur Microscopic Review NOT INDICATED Urine Culture Comments NOT INDICATED PD Medical Decision Making - ED course ED course: 72yF p/w n/v/d and abdominal cramping, with bloody mucous diarrhea today. cbc and abdominal panel were benign. ivf, IV morphine, IV zofran provided with relief of symptoms. CT a/p showed thickening of intestines concerning for colitis. d/w patient that this is likely viral in origin. blood cultures ordered. patient has appointment with her GI doctor Jun 27. advised also to f/u with pcp. return precautions given. Departure - Departure Disposition: 01 Home, Self Care Clinical Impression: Vomiting, Diarrhea, Abdominal pain Condition: Stable Instructions: ED Nausea Vomiting, Abdominal Pain Prescriptions: Oxycodone HCl/Acetaminophen [Percocet 5-325 mg Tablet] 1 each PO Q4H PRN #8 tablet PRN Reason: Pain >8 Ondansetron Odt [Zofran Odt] 4 mg TL Q6H PRN #10 tablet PRN Reason: Nausea / Vomiting Comments: You were seen in the emergency department for vomiting, diarrhea and abdominal p ain. Your CT showed colitis, probably caused by a virus. Prescriptions sent to [facility] electronically. Please follow-up with your GI doctor and return to the emergency department if you have any new or worsening symptoms or other concerns. Forms: PCP List
[2023-06-17] MEDS: ONDANSETRON 4 MG/2 ML VIAL IVP STA (02:46)
[2023-06-17] MEDS: SODIUM CHLORIDE 0.9% 1,000 ML IV STA (02:47)
[2023-06-17] MEDS: MORPHINE 10 MG/ML VIAL IVP STA (02:47)
[2023-06-17] MEDS: iohexoL-300 100 ML VIAL IVP ONE (03:01)
[2023-06-17] MEDS: oxyCODONE/ACET 5/325 Prepack 4 PO STA (04:30)
[2023-06-17 04:39] VITALS: BP 113/62; O2SAT 98
--- NOTE | 2023-06-17 08:15 | CT Report ---
PROCEDURE: ABDOMEN/PELVIS W INDICATIONS: LLQ Abdominal pain, diverticulitis suspected. Dark stool today. CONTRAST: 100ml Omni 300 TECHNIQUE: After the administration of IV contrast, 5 mm thick sections acquired from the diaphragms to the symp hysis. 5 mm thick coronal and sagittal reformats were acquired. For radiation dose reduction, the f ollowing was used: automated exposure control, adjustment of mA and/or kV according to patient size. COMPARISON: CT abdomen pelvis with, 02/14/2020. FINDINGS: Image quality: Excellent. Lung bases and heart: Unremarkable. Liver: No solid mass. Gallbladder and biliary tree: Gallbladder is surgically absent. There is intrahepatic and intrahepati c biliary dilation. Common bile duct measures up to 12 mm. Spleen: No splenomegaly. Pancreas: No pancreatic ductal dilation. Adrenals: No adrenal nodule. Kidneys and ureters: No hydronephrosis. No renal cystic lesion which requires follow up. No solid mas s. Bowel and peritoneum: Gastric antrum is mildly thickened. There is abundant colonic gas. Multiple air -fluid levels are seen within colon. No bowel distension. No pathologic free fluid. Lymph nodes: No central or retroperitoneal adenopathy. Vessels: No infrarenal aortic aneurysm. Moderate atherosclerotic calcification. PELVIS Reproductive organs: Unremarkable. Bladder: No abnormal wall thickening, accounting for underdistension. Pelvic lymph nodes: No pelvic adenopathy by size criteria. Bones: No aggressive osseous abnormality. Other: No significant ventral or inguinal hernia. IMPRESSION: 1. No source of GI bleeding is identified. 2. Mild thickening of gastric antrum. This finding could be secondary to gastritis or peptic ulcer di sease. 3. There is abundant colonic gas. Multiple air-fluid levels within colon. Question mild colonic wall thickening in distal sigmoid colon. The findings nonspecific and may be secondary to enterocolitis. R ecommend clinical correlation. 4. Cholecystectomy. There is intrahepatic and intrahepatic biliary dilation, which may be secondary t o postsurgical change. Please correlate with serum bilirubin. No significant discrepancy with the preliminary interpretation. Reviewed by: Toya Yancey MD on 06/17/2023 8:14 AM PDT Approved by: Toya Yancey MD on 06/17/2023 8:14 AM PDT Station ID: [id number]
== END 2023-06-17 04:37 | disposition home or self-care (01) ==
LOC: ED 23:16
DX: R11.2 Nausea with vomiting, unspecified (principal); R19.7 Diarrhea, unspecified; R10.9 Unspecified abdominal pain
CPT/HCPCS: 36415; 74177; 80053; 81003; 83690; 85025; 96361; 96374; 96375; 99283; 99284; Q0162; Q9967; 81001; 87040; 87086

== ENCOUNTER 2023-07-01 14:03 | Outpatient (CLI) | payer MEDICARE ==
[2023-07-01 14:22] LABS: MUDS CUTOFF CONCENTRATIONS CUTOFF CONC BELOW:
[2023-07-01 14:54] LABS: AMPHETAMINE SCREEN,URINE NEGATIVE (NEGATIVE); BARBITURATE SCREEN,UR NEGATIVE (NEGATIVE); BENZODIAZEPINES SCREEN, URINE POSITIVE (NEGATIVE); COCAINE SCREEN URINE NEGATIVE (NEGATIVE); METHADONE SCREEN, URINE NEGATIVE (NEGATIVE); METHAMPHETAMINES SCREEN, URINE NEGATIVE (NEGATIVE); OPIATE SCREEN, URINE NEGATIVE (NEGATIVE); OXYCODONE SCREEN, URINE NEGATIVE (NEGATIVE); PROPOXYPHENE SCREEN, URINE NEGATIVE (NEGATIVE); THC CANNABINOID SCREEN, URINE NEGATIVE (NEGATIVE); TRICYCLIC ANTIDEPRESSANT,URINE NEGATIVE (NEGATIVE)
== END 2023-07-01 14:04 | disposition home or self-care (01) ==
LOC: LAB 14:03
PROVIDERS: ATTEND Family Medicine
DX: F41.0 Panic disorder [episodic paroxysmal anxiety] (principal)
CPT/HCPCS: 80306

== ENCOUNTER 2023-07-08 01:05 | Emergency (ER) | payer MEDICARE ==
[2023-07-08] MEDS ORDERED: SODIUM CHLORIDE 0.9% 1,000 ML IV STA (01:20)
[2023-07-08] MEDS ORDERED: ONDANSETRON 4 MG/2 ML VIAL IVP STA (01:20)
[2023-07-08] MEDS ORDERED: FAMOTIDINE 20 MG/2 ML VIAL IVP STA (01:20)
[2023-07-08 01:25] LABS: BASOPHILS % (AUTO) 0.1 %; EOSINOPHILS # (AUTO) 0.1 10^3/uL (0.0-0.7); EOSINOPHILS % (AUTO) 1.4 %; HCT - HEMATOCRIT 42.4 % (37.0-47.0); HGB - HEMOGLOBIN 13.9 g/dL (12.0-16.0); LYMPHOCYTES % (AUTO) 24.5 %; MEAN CORPUSCULAR HEMOGLOBIN 29.8 pg (27.0-31.0); MEAN CORPUSCULAR HGB CONC 32.8 g/dL (32.0-36.0); MONOCYTES # (AUTO) 0.7 10^3/uL (0.0-1.0); MONOCYTES % (AUTO) 8.3 %; NEUTROPHILS # (AUTO) 5.2 10^3/uL (1.5-6.6); NEUTROPHILS % (AUTO) 65.4 %; PLT - PLATELET COUNT 303 10^3/uL (130-450); RED BLOOD COUNT 4.66 10^6/uL (4.20-5.40); RED CELL DISTRIBUTION WIDTH 12.5 % (12.0-15.0)
[2023-07-08 01:42] LABS: ALBUMIN 4.4 g/dL (3.2-5.5); ALBUMIN/GLOBULIN RATIO 1.5 (1.0-2.2); CALCIUM 9.7 mg/dL (8.5-10.3); CREATININE 0.6 mg/dL (0.6-1.3); POTASSIUM 3.9 mmol/L (3.5-4.5); TOTAL PROTEIN 7.3 g/dL (6.4-8.9)
[2023-07-08] MEDS ORDERED: HYDROmorphone 0.5 MG/0.5 ML SYRINGE IVP STA (02:00)
[2023-07-08 03:06] LABS: BILIRUBIN,URINE NEGATIVE (NEGATIVE); GLUCOSE, URINE (UA) NEGATIVE (NEGATIVE); KETONES,URINE (UA) NEGATIVE (NEGATIVE); LEUKOCYTE ESTERASE, URINE NEGATIVE (NEGATIVE); NITRITE,URINE NEGATIVE (NEGATIVE); OCCULT BLOOD,URINE TRACE-INTA (NEGATIVE); PROTEIN,URINE NEGATIVE (NEGATIVE); UROBILINOGEN,URINE 0.2 (NORMAL) E.U./dL (NORMAL)
[2023-07-08 03:08] LABS: CLARITY,URINE CLEAR (CLEAR)
--- NOTE | 2023-07-08 04:42 | ED Physician Documentation ---
PD HPI ABD PAIN - Stated complaint Stated Complaint: ABD PX - Chief complaint Chief Complaint: Abd Pain - History obtained from History obtained from: Patient, Family (spouse) - Additional information Additional information: 72yF with pmh colitis, gastric ulcers, p/w epigastric and diffuse upper abdominal pain with associated nausea since 10pm last night. also with loose stool. Patient saw her GI doctor yesterday and is scheduled for follow up colonoscopy/endoscopy. she denies vomiting, fever, back pain. PD PAST MEDICAL HISTORY - Past Medical History Past Medical History: Yes Cardiovascular: High cholesterol Respiratory: None Neuro: None Endocrine/Autoimmune: HyPOthyroidism GI: GERD, Ulcers, Hiatal hernia, Colon polyps, Cholelithiasis, Ulcerative colitis, Other EVALUATION SPECIALIST: None : None HEENT: Chronic vision loss, Chronic hearing loss Psych: Depression, Anxiety Musculoskeletal: Osteoarthritis, Chronic back pain Derm: None - Past Surgical History Past Surgical History: Yes General: Colonoscopy, EGD Ortho: Other /EVALUATION SPECIALIST: section, 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 - Present Medications Home Medications: Ambulatory Orders Medication Instructions Recorded Confirmed Cholecalciferol (Vitamin D3) 2,000 unit PO DAILY 03/31/17 07/08/23 [Vitamin D3] Omeprazole 40 mg PO BID 02/05/18 07/08/23 Ondansetron Odt [Zofran Odt] 4 mg TL Q6H PRN #10 tablet 06/17/23 07/08/23 Citalopram Hydrobromide 40 mg PO DAILY 07/08/23 07/08/23 [Citalopram HBr] Levothyroxine [Synthroid] 112 mcg PO QDAC 07/08/23 07/08/23 Lorazepam [Ativan] 2 mg PO HS 07/08/23 07/08/23 Naproxen 375 mg PO BID PRN 07/08/23 07/08/23 Oxycodone HCl/Acetaminophen 1 each PO Q4H PRN #10 tablet 07/08/23 [Percocet 5-325 mg Tablet] Simvastatin [Zocor] 40 mg PO HS 07/08/23 07/08/23 buPROPion HCL [Bupropion Xl] 150 mg PO DAILY 07/08/23 07/08/23 - Allergies Allergies/Adverse Reactions: Allergies Allergy/AdvReac Type Severity Reaction Status Date / Time Sulfa (Sulfonamide Allergy Severe rash, Verified 07/08/23 01:15 Antibiotics) hives, blood vessel rupture amoxicillin AdvReac Nausea Verified 07/08/23 01:15 aripiprazole [From Abilify] AdvReac Unknown Verified 07/08/23 01:15 - Social History Does the pt smoke?: No Smoking Status: Never smoker Does the pt drink ETOH?: No Does the pt have substance abuse?: No - Immunizations Immunizations are current?: Yes - POLST Patient has POLST: Yes POLST Status: Full Code PD ED PE NORMAL - Vitals Vital signs reviewed: Yes - General General: Alert and oriented X 3, No acute distress, Well developed/nourished - HEENT HEENT: Atraumatic, PERRL, EOMI, Moist mucous membranes, Pharynx benign - Neck Neck: Supple, no meningeal sign - Cardiac Cardiac: RRR - Respiratory Respiratory: No respiratory distress, Clear bilaterally - Abdomen Abdomen: Non tender, Non distended, Other (epigastric discomfort to palpation) - Back Back: No CVA TTP Results - Vitals Vitals: Vital Signs - 24 hr 07/08/23 07/08/23 07/08/23 01:11 01:30 02:00 Temperature 36.8 C Heart Rate 56 L 54 L 52 L Respiratory 18 12 14 Rate Blood Pressure 122/66 121/65 123/77 O2 Saturation 97 97 96 07/08/23 07/08/23 07/08/23 02:30 03:28 03:30 Temperature Heart Rate 52 L 53 L 50 L Respiratory 12 15 12 Rate Blood Pressure 118/70 116/65 O2 Saturation 96 97 95 07/08/23 04:48 Temperature Heart Rate 52 L Respiratory 16 Rate Blood Pressure 125/96 H O2 Saturation 94 Oxygen O2 Source Room air - Labs Labs: Laboratory Tests 07/08/23 07/08/23 07/08/23 01:19 01:19 02:20 WBC 8.0 RBC 4.66 Hgb 13.9 Hct 42.4 MCV 91.0 MCH 29.8 MCHC 32.8 RDW 12.5 Plt Count 303 MPV 9.0 Neut # (Auto) 5.2 Lymph # (Auto) 2.0 [place] # (Auto) 0.7 Eos # (Auto) 0.1 Baso # (Auto) 0.0 Absolute Nucleated RBC 0.00 Nucleated RBC % 0.0 Sodium 135 Potassium 3.9 Chloride 102 Carbon Dioxide 26 Anion Gap 7.0 BUN 23 H Creatinine 0.6 Estimated GFR (MDRD) 98 Glucose 106 H Calcium 9.7 Total Bilirubin 1.0 AST 32 ALT 19 Alkaline Phosphatase 81 Total Protein 7.3 Albumin 4.4 Globulin 2.9 Albumin/Globulin Ratio 1.5 Lipase 37 Urine Color YELLOW Urine Clarity CLEAR Urine pH 6.0 Ur Specific [place] >=1.030 H Urine Protein NEGATIVE Urine Glucose (UA) NEGATIVE Urine Ketones NEGATIVE Urine Occult Blood TRACE-INTA Urine Nitrite NEGATIVE Urine Bilirubin NEGATIVE Urine Urobilinogen 0.2 (NORMAL) Ur Leukocyte Esterase NEGATIVE Ur Microscopic Review NOT INDICATED Urine Culture Comments NOT INDICATED PD Medical Decision Making - ED course ED course: 72yF with hx colitis, gastric ulcers, p/w epigastric abdominal pain to the ED, not resolving with 2 baby aspirin given by her . discussed avoiding nsaid use since she has known ulcers. cbc, abdominal panel, ct a/p ordered and were unremarkable per my wet read. patient felt better s/p IV dilaudid and zofran and did not want to wait for final interpretation. I will call if there are results that necessitate her return to the ED. return precautions given. plan to f/u with GI. NOTE: I called patient with final CT results, which did not uncover acute pathology. She did not answer the phone but a message was left to call back for final results. dome of liver was excluded from view but no significant pathology related to her complaints tonight was expected from liver view. Departure - Departure Disposition: 01 Home, Self Care Clinical Impression: Abdominal pain Condition: Stable Instructions: Abdominal Pain Prescriptions: Oxycodone HCl/Acetaminophen [Percocet 5-325 mg Tablet] 1 each PO Q4H PRN #10 tablet PRN Reason: Pain >8 Comments: You were seen in the emergency department for nausea and abdominal pain. Please do not take NSAIDs (Nonsteroidal anti-inflammatory drugs) since they can make stomach ulcers worse. Some examples include ibuprofen, Motrin, Advil, Aleve, aspirin, Midol. If you are not sure if something is an NSAID, then ask your local pharmacist or perform a quick Google check. Note that we didn't get the official read back yet on your CT. I will call if there are any findings that will require you to return to the ED. Please follow-up with your primary care provider and return to the emergency department if you have any new or worsening symptoms or other concerns. Forms: PCP List Discharge Date/Time: 07/08/23 04:49
[2023-07-08] MEDS ORDERED: oxyCODONE/ACET 5/325 Prepack 4 PO STA (04:44)
[2023-07-08 04:51] VITALS: BP 125/96; O2SAT 94
[2023-07-08] MEDS ORDERED: iohexoL-300 100 ML VIAL IVP ONE (05:02)
--- NOTE | 2023-07-08 08:32 | CT Report ---
PROCEDURE: ABDOMEN/PELVIS W INDICATIONS: epigastric pain, hx colitis CONTRAST: 100mL Omni 300 TECHNIQUE: After the administration of intravenous contrast, 5 mm thick sections acquired from the diaphragms to the symphysis. 5 mm thick coronal and sagittal reformats were acquired. For radiation dose reducti on, the following was used: automated exposure control, adjustment of mA and/or kV according to eric ent size. COMPARISON: CT abdomen pelvis 06/17/2023 FINDINGS: Image quality: Excellent. Lung bases and heart: Unremarkable. Liver: No solid mass. Abdomen the liver is not included within the [id number]. Gallbladder and biliary tree: Surgically absent. No biliary dilation, accounting for post-cholecystec olivier state. Spleen: No splenomegaly. Pancreas: No pancreatic ductal dilation. Adrenals: No adrenal nodule. Kidneys and ureters: No hydronephrosis. No renal cystic lesion which requires follow up. No solid mas s. Bowel and peritoneum: No bowel distension. No pathologic free fluid. Moderate burden of stool through out the colon. Lymph nodes: No central or retroperitoneal adenopathy. Vessels: No infrarenal aortic aneurysm. Atherosclerotic vascular calcifications. PELVIS Reproductive organs: Prior hysterectomy. Bladder: No abnormal wall thickening, accounting for underdistension. Pelvic lymph nodes: No pelvic adenopathy by size criteria. Bones: No aggressive osseous abnormality. Other: No significant ventral or inguinal hernia. IMPRESSION: 1.Moderate burden of stool throughout the colon, correlate for constipation. 2.Status post cholecystectomy. Stable mild intrahepatic biliary ductal dilatation, normal for post ch olecystectomy status. Findings are concordant with preliminary interpretation provided by [facility]. Reviewed by: Leonides Bailey MD on 07/08/2023 8:30 AM PDT Approved by: Leonides Bailey MD on 07/08/2023 8:30 AM PDT Station ID: [id number]
== END 2023-07-08 04:49 | disposition home or self-care (01) ==
LOC: ED 01:05
DX: R10.13 Epigastric pain (principal); K25.9 Gastric ulcer, unspecified as acute or chronic, without hemorrhage or perforation
CPT/HCPCS: 36415; 74177; 80053; 81003; 83690; 85025; 96374; 96375; 99283; 99284; J1170; Q9967; 81001; 87086

== ENCOUNTER 2023-10-23 12:20 | Outpatient (CLI) | payer MEDICARE | END 2023-10-23 12:21 | disposition home or self-care (01) | LOC: LAB 12:20 | PROVIDERS: ATTEND Family Medicine | DX: Z53.9 Procedure and treatment not carried out, unspecified reason (principal) ==

== ENCOUNTER 2023-11-16 14:28 | Outpatient (CLI) | payer MEDICARE ==
--- NOTE | 2023-11-16 15:32 | DEXA Report ---
PROCEDURE: Dexa Spine and/or Hip INDICATIONS: POST MENOPAUSAL TECHNIQUE: Dual energy x-ray absorptiometry (DXA) was performed on a Manflu System. Regions measur ed are the AP Spine, femoral neck, and if needed forearm. COMPARISON: DEXA 06/03/2021, 05/05/2016. FINDINGS: Lumbar Spine: Bone Mineral Density: 1.000 g/cm/cm, T score: -1.5. There has been no statistically significant nunes ge in bone mineral density since the prior study. Left Femoral Neck: Bone Mineral Density: 0.734 g/cm/cm, T score: -2.2. Left Hip: Bone Mineral Density: 0.761 g/cm/cm, T score: -2.0. There has been no statistically significant [place] e in bone mineral density since the prior study. (T score greater or equal to -1.0: NORMAL) (T score from -1.1 to -2.4: OSTEOPENIA) (T score less than or equal to -2.5 to: OSTEOPOROSIS) Impression: By WHO criteria, this patient has low bone density (osteopenia). No statistical interval change in bone mineral density of the lumbar spine. No statistical interval change in bone mineral density of the hip. Patients with diagnosis of osteoporosis or osteopenia should have regular bone mineral density assess ment. For those eligible for Medicare, routine testing is allowed once every 2 years. Testing frequ ency can be increased for patients who have rapidly progressing disease or for those who are receivin g medical therapy to restore bone mass. Reviewed by: Wilner Christie MD on 11/16/2023 3:31 PM PST Approved by: Wilner Christie MD on 11/16/2023 3:31 PM PST Station ID: [id number]
== END 2023-11-16 14:29 | disposition home or self-care (01) ==
LOC: DI 14:28
PROVIDERS: ATTEND Family Medicine
DX: Z78.0 Asymptomatic menopausal state (principal); M85.89 Other specified disorders of bone density and structure, multiple sites

== ENCOUNTER 2024-05-17 13:37 | Outpatient (CLI) | payer MEDICARE ==
[2024-05-17 13:54] LABS: BASOPHILS % (AUTO) 0.4 %; EOSINOPHILS # (AUTO) 0.2 10^3/uL (0.0-0.7); EOSINOPHILS % (AUTO) 2.1 %; HCT - HEMATOCRIT 42.9 % (37.0-47.0); HGB - HEMOGLOBIN 13.8 g/dL (12.0-16.0); LYMPHOCYTES # (AUTO) 1.8 10^3/uL (1.5-3.5); LYMPHOCYTES % (AUTO) 24.3 %; MEAN CORPUSCULAR HEMOGLOBIN 29.6 pg (27.0-31.0); MEAN CORPUSCULAR HGB CONC 32.2 g/dL (32.0-36.0); MEAN CORPUSCULAR VOLUME 92.1 fL (81.0-99.0); MEAN PLATELET VOLUME 9.4 fL (7.9-10.8); MONOCYTES # (AUTO) 0.6 10^3/uL (0.0-1.0); MONOCYTES % (AUTO) 8.9 %; NEUTROPHILS # (AUTO) 4.6 10^3/uL (1.5-6.6); NEUTROPHILS % (AUTO) 63.9 %; PLT - PLATELET COUNT 291 10^3/uL (130-450); RED BLOOD COUNT 4.66 10^6/uL (4.20-5.40); RED CELL DISTRIBUTION WIDTH 12.4 % (12.0-15.0); WHITE BLOOD COUNT 7.2 x10^3/uL (4.8-10.8)
[2024-05-17 14:31] LABS: THYROID STIMULATING HORMONE 4.37 uIU/mL (0.34-5.60)
[2024-05-17 14:33] LABS: ESTIMATED AVERAGE GLUCOSE 100 mg/dL (70-100); HEMOGLOBIN A1c% 5.1 % (4.27-6.07)
[2024-05-17 14:38] LABS: FERRITIN 127.4 ng/mL (11.0-306.8)
[2024-05-17 14:39] LABS: ALBUMIN 4.5 g/dL (3.2-5.5); ALBUMIN/GLOBULIN RATIO 1.4 (1.0-2.2); BILIRUBIN,TOTAL 1.2 mg/dL (0.2-1.0); CALCIUM 9.6 mg/dL (8.5-10.3); CREATININE 0.7 mg/dL (0.6-1.3); POTASSIUM 4.1 mmol/L (3.5-4.5); TOTAL PROTEIN 7.8 g/dL (6.4-8.9)
[2024-05-21 17:07] LABS: ANTINUCLEAR ANTIBODIES IFA Positive (.)
== END 2024-05-17 13:38 | disposition home or self-care (01) ==
LOC: LAB 13:37
PROVIDERS: ATTEND Family Medicine
DX: R61 Generalized hyperhidrosis (principal); N95.1 Menopausal and female climacteric states; R23.2 Flushing
CPT/HCPCS: 36415; 80053; 81599; 82150; 82728; 83036; 83690; 84443; 85025; 86038

== ENCOUNTER 2024-05-26 12:52 | Outpatient (CLI) | payer MEDICARE ==
--- NOTE | 2024-05-30 08:10 | Mammography Report ---
BILATERAL DIGITAL SCREENING MAMMOGRAM 3D/2D: 05/26/2024 CLINICAL: Routine screening. Comparison is made to exams dated: 06/13/2021 mammogram, 08/03/2018 mammogram, 08/24/2016 mammogram, a nd 03/12/2015 mammogram - [facility]. Both breasts are heterogeneously dense, which may obscure small masses (category c / 51-75% glandular tissue). No significant masses, calcifications, or other findings are seen in either breast. There has been no significant interval change. IMPRESSION: NEGATIVE There is no mammographic evidence of malignancy. A 1 year screening mammogram is recommended. Based on the Tyrer Cuzick model (a risk assessment model) the patient's lifetime risk is 5.3% and her 10 year risk is 4.3%. According to the ACR, ACS, and NCCN guidelines, an annual breast MRI exam romy g with mammogram is recommended if the patient's lifetime risk is 20% or greater. This exam was interpreted at Station ID: [id number]. NOTE: For mammograms, a report in lay terms will be sent to the patient. Approximately 15% of breast malignancies will not be visualized mammographically. In the management of a palpable breast mass, a negative mammogram must not discourage biopsy of a clinically suspicious lesion. Electronically Signed By: Nimo jurado/cali:05/26/2024 14:35:19 letter sent: No_Letter ACR BI-RADS Category 1: Negative [id number] PARENCHYMAL PATTERN: (D) - The breast(s) demonstrate(s) heterogeneously dense fibroglandular lucy hernandez. BI-RADS CATEGORY: (1) - 1 RECOMMENDATION: (ANNUAL) - Recommend routine annual screening mammography. [id number] 1 year screening LATERALITY: (B)
== END 2024-05-26 12:53 | disposition home or self-care (01) ==
LOC: DI 12:52
DX: Z12.31 Encounter for screening mammogram for malignant neoplasm of breast (principal); R92.333 Mammographic heterogeneous density, bilateral breasts

== ENCOUNTER 2024-06-07 07:00 | Outpatient (CLI) | payer MEDICARE ==
[2024-06-07 18:08] LABS: BILIRUBIN,URINE NEGATIVE (NEGATIVE); GLUCOSE, URINE (UA) NEGATIVE (NEGATIVE); KETONES,URINE (UA) NEGATIVE (NEGATIVE); LEUKOCYTE ESTERASE, URINE NEGATIVE (NEGATIVE); NITRITE,URINE NEGATIVE (NEGATIVE); OCCULT BLOOD,URINE TRACE-LYSE (NEGATIVE); PROTEIN,URINE NEGATIVE (NEGATIVE); UROBILINOGEN,URINE 0.2 (NORMAL) E.U./dL (NORMAL)
[2024-06-07 18:12] LABS: CLARITY,URINE CLEAR (CLEAR)
[2024-06-07 18:20] LABS: RBC,URINE 0-5 /HPF (0-5); WBC,URINE 0-3 /HPF (0-5)
[2024-06-07 18:21] LABS: BACTERIA,URINE None Seen /HPF (None Seen); EPITHELIAL CELLS,UR FEW Transitional /HPF (<= Few); SQUAMOUS EPITHELIAL CELL,UR RARE Squamous (<= Few)
== END 2024-06-07 23:59 | disposition home or self-care (01) ==
LOC: LAB.S 07:00
PROVIDERS: ATTEND Family Medicine
DX: R10.9 Unspecified abdominal pain (principal)
CPT/HCPCS: 81001; 87086

== ENCOUNTER 2024-06-09 13:09 | Outpatient (CLI) | payer MEDICARE ==
--- NOTE | 2024-06-09 18:40 | XRAY Report ---
PROCEDURE: Lumbar Spine 4V INDICATIONS: BILATERAL SACROILIAC JOINT PAIN TECHNIQUE: 3 views of the lumbar spine were acquired. COMPARISON: None. FINDINGS: Surgical change: None. Bones: 5 [id number] vertebrae are present. Moderate disc and foraminal narrowing most severe at L5-S1. Minimal periarticular osteophytes. No erosions. No vertebral body compression fractures. No suspicious bony lesions. Soft tissues: Overlying bowel gas pattern is normal. No suspicious soft tissue calcifications. IMPRESSION: Degenerative changes most severe at L5-S1. Reviewed by: Genvea Werner MD on 06/09/2024 6:38 PM PDT Approved by: Geneva Werner MD on 06/09/2024 6:38 PM PDT Station ID: [id number]
== END 2024-06-09 13:10 | disposition home or self-care (01) ==
LOC: DI 13:09
PROVIDERS: ATTEND Family Medicine
DX: M47.817 Spondylosis without myelopathy or radiculopathy, lumbosacral region (principal)